=== PATIENT | male | born 1930 | race Caucasian/White ===

== ENCOUNTER 2016-10-14 11:48 | Inpatient (IN) | payer MEDICARE ==
[2016-10-14] MEDS ORDERED: ASPIRIN 325 MG TAB PO STA (13:20)
[2016-10-14] MEDS ORDERED: HEPARIN SODIUM,PORCINE 5,000 UNIT/ML 1 ML VIAL IV ONE (13:32)
[2016-10-14] MEDS ORDERED: HEPARIN SODIUM,PORCINE 5,000 UNIT/ML 1 ML VIAL IV PRN (13:32)
[2016-10-14] MEDS ORDERED: MIDAZOLAM 2 MG/2 ML VIAL ONE (13:43)
[2016-10-14] MEDS ORDERED: LIDOCAINE 2% INJ 20 MG/ML (20 ML MDV) ONE (13:43)
[2016-10-14] MEDS ORDERED: HEPARIN SODIUM,PORCINE/D5W PMX 25,000 UNIT in DEXTROSE/WATER 1 500ML.BAG IV SCH (13:45)
[2016-10-14] MEDS ORDERED: SODIUM CHLORIDE 0.9% 1,000 ML IV ONE ×2 (13:50→15:00)
[2016-10-14] MEDS ORDERED: MIDAZOLAM 2 MG/2 ML VIAL IV ONE (13:50)
[2016-10-14] MEDS ORDERED: SODIUM CHLORIDE 0.9% 500 ML IV ONE (13:50)
[2016-10-14 13:52] LABS: Basophils % (A) 0 %; CH 32.4; CHCM 33.1; Eosinophils # (A) 0.1 k/uL (0-0.7); Eosinophils % (A) 1 %; HCT 40.3 % (39.0-53.0); HDW 2.64; HGB 13.1 gm/dL (13.0-17.5); Luc % (Auto) 1; Lymphocytes # (A) 0.9 k/uL (1.0-4.8); Lymphocytes % (A) 10 %; MCH 31.9 pg (25.0-35.0); MCHC 32.5 g/dL (31.0-37.0); MCV 98.2 fL (80.0-100.0); Mean Platelet Volume 6.9; Monocytes # (A) 0.4 k/uL (0-1.0); Monocytes % (A) 5 %; Neutrophils # (A) 6.8 k/uL (1.3-7.7); Neutrophils % (A) 82 %; RDW 14.1 % (11.5-15.5); WBC 8.3 k/uL (3.8-10.6); WBC (Perox) 8.93
--- NOTE | 2016-10-14 13:53 | ED ---
Back Pain HPI - General Chief Complaint: Back Pain/Injury Stated Complaint: back pain, leg swollen Time Seen by Provider: 10/14/16 12:52 Source: patient, family - History of Present Illness Initial Comments: This patient is an 86-year-old man who presents to be evaluated for pain to the back located between his scapula. The patient states that the pain is been going on since Monday and he thought that it was related to lifting some heavy weights that he felt were too heavy for him. He has had the pain constantly since that time, it is moderate, aching, without worsening or relieving factors. The patient had been seen by his doctor yesterday and reportedly had an EKG that was "normal." The patient states that he was given nitroglycerin to take. Today he noted the addition of some pain and he is indicating the bilateral neck or throat area. The patient was brought back to the [place] side of the emergency department where he started being seen and when an EKG was performed here is brought over to the north side. The patient is denying any additional symptoms. MD Complaint: back pain Onset/Timin -: days(s) Similar Symptoms Previously: No Place: home Radiation: none - Related Data Home Medications Medication Instructions Recorded Confirmed Aspirin [Adult Low Dose Aspirin EC] 81 mg PO DAILY 06/18/16 10/14/16 Metoprolol Tartrate [Lopressor] 25 mg PO DAILY 06/18/16 10/14/16 Simvastatin [Zocor] 10 mg PO DAILY 06/18/16 10/14/16 metFORMIN HCL [Glucophage] 1,000 mg PO DAILY 06/18/16 10/14/16 Enalapril [Vasotec] 5 mg PO DAILY 10/14/16 10/14/16 Fish Oil/Dha/Epa [Fish Oil 1,200 1 cap PO DAILY 10/14/16 10/14/16 mg Fish Oil] Gemfibrozil [Lopid] 600 mg PO DAILY 10/14/16 10/14/16 Isosorbide Mononitrate ER [Imdur] 30 mg PO DAILY 10/14/16 10/14/16 Multivitamin [Men's Multi-Vitamin] 1 tab PO DAILY 10/14/16 10/14/16 Previous Rx's Medication Instructions Recorded Nitroglycerin Sl Tabs [Nitrostat] 0.4 mg SUBLINGUAL Q5M PRN #25 tab 06/19/16 Allergies Allergy/AdvReac Type Severity Reaction Status Date / Time No Known Allergies Allergy Verified 10/14/16 12:21 Review of Systems ROS Statement: Those systems with pertinent positive or pertinent negative responses have been documented in the HPI. ROS Other: All systems not noted in ROS Statement are negative. Constitutional: Denies: fever, chills, weakness Respiratory: Denies: cough, dyspnea Cardiovascular: Reports: as per HPI. Denies: chest pain, palpitations, edema, syncope Gastrointestinal: Denies: abdominal pain, nausea, vomiting Genitourinary: Denies: dysuria, hematuria Musculoskeletal: Reports: back pain Skin: Denies: rash Neurological: Denies: headache, weakness, numbness Past Medical History Past Medical History: Diabetes Mellitus, Hyperlipidemia, Hypertension, Prostate Disorder History of Any Multi-Drug Resistant Organisms: None Reported Past Surgical History: Back Surgery, Coronary Bypass/CABG, Orthopedic Surgery Additional Past Surgical History / Comment(s): CABG 5-6 years ago, carpal tunnel , cataracts removed Past Psychological History: No Psychological Hx Reported Smoking Status: Former smoker Past Alcohol Use History: None Reported Past Drug Use History: None Reported - Past Family History Mother History Unknown: Yes Family Medical History: Hypertension Father History Unknown: Yes Family Medical History: Hypertension General Exam General appearance: alert, in no apparent distress Head exam: Present: atraumatic, normocephalic Eye exam: Present: normal appearance. Absent: scleral icterus, conjunctival injection ENT exam: Present: normal oropharynx Neck exam: Present: normal inspection, full ROM. Absent: tenderness Respiratory exam: Present: normal lung sounds bilaterally. Absent: respiratory distress, wheezes, rales, rhonchi, stridor Cardiovascular Exam: Present: regular rate, normal rhythm, normal heart sounds GI/Abdominal exam: Present: soft. Absent: distended, tenderness, guarding, rebound, mass Extremities exam: Present: normal inspection, normal capillary refill. Absent: pedal edema, calf tenderness Back exam: Present: normal inspection. Absent: CVA tenderness (R), CVA tenderness (L) Neurological exam: Present: alert Skin exam: Present: warm, dry, intact, normal color. Absent: rash Course Vital Signs 10/14/16 10/14/16 10/14/16 12:15 13:35 13:41 Temperature 98 F Pulse Rate 69 68 71 Respiratory 18 18 16 Rate Blood Pressure 94/54 111/62 121/63 O2 Sat by Pulse 96 98 100 Oximetry Medical Decision Making - Medical Decision Making The patient was brought directly to the [place] end of the departments when his EKG was performed. EKG was shown to me in the STEMI was called overhead. I then discussed the case with Dr. Morillo who did come see the patient and the patient was probably taken to the Clinical Molecular Geneticist. - Lab Data Result diagrams: 10/14/16 13:35 Lab Results 10/14/16 Range/Units 13:35 WBC 8.3 (3.8-10.6) k/uL RBC 4.10 L (4.30-5.90) m/uL Hgb 13.1 (13.0-17.5) gm/dL Hct 40.3 (39.0-53.0) % MCV 98.2 (80.0-100.0) fL MCH 31.9 (25.0-35.0) pg MCHC 32.5 (31.0-37.0) g/dL RDW 14.1 (11.5-15.5) % Plt Count 132 L (150-450) k/uL Neutrophils % 82 % Lymphocytes % 10 % Monocytes % 5 % Eosinophils % 1 % Basophils % 0 % Neutrophils # 6.8 (1.3-7.7) k/uL Lymphocytes # 0.9 L (1.0-4.8) k/uL Monocytes # 0.4 (0-1.0) k/uL Eosinophils # 0.1 (0-0.7) k/uL Basophils # 0.0 (0-0.2) k/uL - EKG Data -: EKG Interpreted by Me EKG shows normal: sinus rhythm, ST-T waves (The patient has ST elevations in II , 3 and aVF consistent with acute STEMI. There are reciprocal ST depressions in 1 and aVL.) Rate: normal Critical Care Time Critical Care Time: Yes (30 minutes) Disposition Clinical Impression: STEMI (ST elevation myocardial infarction) Disposition: ADMITTED IP TO THIS [facility] Condition: Critical
[2016-10-14 13:54] LABS: Calcium 9.8 mg/dL (8.4-10.2); Total Bilirubin 0.9 mg/dL (0.2-1.3); Total Protein 6.9 g/dL (6.3-8.2)
[2016-10-14 13:55] LABS: Partial Thromboplastin Time 24.6 sec (22.0-30.0); Prothrombin Time 10.6 sec (9.0-12.0)
[2016-10-14] MEDS ORDERED: LIDOCAINE 2% INJ 20 MG/ML SQ ONE (13:57)
[2016-10-14] MEDS ORDERED: BIVALIRUDIN BOLUS 250 MG/50 ML IV ONE (14:06)
[2016-10-14] MEDS ORDERED: BIVALIRUDIN 250 MG in SODIUM CHLORIDE 0.9% 50 ML IV ONE ×2 (14:07→15:08)
[2016-10-14] MEDS ORDERED: niCARdipine 25 MG/10 ML VIAL ONE (14:15)
[2016-10-14] MEDS ORDERED: SODIUM CHLORIDE 0.9% (PF) 10 ML VIAL ONE (14:15)
[2016-10-14 14:23] LABS: Troponin I 1.74 ng/mL (0.000-0.034)
[2016-10-14] MEDS ORDERED: CLOPIDOGREL 75 MG TAB ONE ×3 (14:28→14:30)
[2016-10-14] MEDS: niCARdipine Syringe (1,000 mcg/10 mL) INTRACORON ONE ×4 (14:28→14:46)
[2016-10-14] MEDS ORDERED: CLOPIDOGREL 75 MG TAB PO ONE (14:34)
[2016-10-14] MEDS ORDERED: ATROPINE SULFATE 0.1 MG/ML 10ML SYRINGE IV ONE ×2 (14:56→15:01)
[2016-10-14] MEDS ORDERED: DOPamine DRIP 800 MG in DEXTROSE/WATER 1 500ML.BAG IV ONE (14:56)
[2016-10-14] MEDS ORDERED: EPINEPHrine 10 ML SYRINGE (0.1 MG/ML) IV ONE (15:01)
[2016-10-14] MEDS ORDERED: NOREPINEPHRINE 16 MG in SODIUM CHLORIDE 0.9% 250 ML IV ONE (15:21)
[2016-10-14] MEDS ORDERED: IOHEXOL 350 MG/ML 100 ML BOTTLE INJ ONE (15:54)
[2016-10-14] MEDS ORDERED: NITROGLYCERIN SL TABS 0.4 MG TAB SUBLINGUAL PRN (15:55)
[2016-10-14] MEDS ORDERED: ZOLPIDEM 5 MG TAB PO PRN (15:55)
[2016-10-14] MEDS ORDERED: MAG HYDROX/AL HYDROX/SIMETH 30 ML CUP PO PRN (15:55)
[2016-10-14] MEDS ORDERED: RX INFO: IV CONTRAST WAS GIVEN 1 EACH MISC MISCELLANE PRN (15:55)
[2016-10-14] MEDS ORDERED: SODIUM CHLORIDE 0.9% 1,000 ML IV SCH (16:00)
[2016-10-14 16:39] LABS: Glucose,Whole Blood 146 mg/dL (75-99)
[2016-10-14] MEDS ORDERED: NOREPINEPHRINE 4 MG in SODIUM CHLORIDE 0.9% 250 ML IV SCH (17:00)
[2016-10-14] MEDS ORDERED: CALCIUM CARBONATE 500 MG CHEWABLE PO PRN (17:42)
[2016-10-14 17:50] LABS: Glucose,Whole Blood 165 mg/dL (75-99)
[2016-10-14] MEDS: INSULIN LISPRO (humaLOG) 300 UNIT/3 ML VIAL SQ SCH (17:53)
[2016-10-14 18:14] LABS: Magnesium 1.8 mg/dL (1.6-2.3); Phosphorous 3.1 mg/dL (2.5-4.5); Potassium 6.1 mmol/L (3.5-5.1)
--- NOTE | 2016-10-14 18:37 | P.CRDCN ---
History of Present Illness Consult date: 10/14/16 History of present illness: This is a pleasant 86-year-old gentleman who does not follow with any demand planner on regular basis with a past medical history significant for chronic artery disease and prior bypass was performed in 2006 where he received ALEX to LAD, SVG to diagonal, and SVG to RCA, hypertension, dyslipidemia, presented to the emergency room complaining of chest discomfort where he was diagnosed with acute inferior ST elevation myocardial infarction. Emergently, the patient underwent heart catheterization which showed acute/subacute total occlusion of the proximal SVG to RCA. He underwent a prolonged procedure in attempting to open the RCA which was unsuccessful in view of the large graft which was full of thrombus. I was able to aspirate red and white clots from the graft but I was unable to restore flow in the graft. The procedure was complicated by brief cardiac arrest where the patient went into asystole which was reversed using epinephrine and also Atropen. He left the cardiac chemistry laboratory technician on a small dose of Levophed. Also I placed a temporary pacemaker during the procedure because of severe bradycardia just before the asystole. I would consider maximize medical treatment using dual antiplatelet therapy and statin. I will obtain an echocardiogram with Doppler. We'll continue monitor the patient in the ICU and try to wean him from the Levophed and watched there is a very closely. Past Medical History Past Medical History: Coronary Artery Disease (CAD), Chest Pain / Angina, Diabetes Mellitus, Hyperlipidemia, Hypertension, Prostate Disorder Additional Past Medical History / Comment(s): 10-14-16 STEMI History of Any Multi-Drug Resistant Organisms: None Reported Past Surgical History: Back Surgery, Coronary Bypass/CABG, Heart Catheterization , Orthopedic Surgery Additional Past Surgical History / Comment(s): 10-14-16 HEART CATH "CLOTS REMOVED AND 3 STENTS TO SVG TO PDA,STILL NO FLOW"2006 CABG -LT INTERNAL MAMMARY ARTERY GRAFT TO LAD, SVG TO DAIG, SVG TO PDA. carpal tunnel, cataracts removed, LASER PROCEDURE FOR ENLARGED PROSTATE, HEART CATH/PTCA 1982 Past Anesthesia/Blood Transfusion Reactions: No Reported Reaction Additional Past Anesthesia/Blood Transfusion Reaction / Comment(s): PT IS JEHOVAH WITNESS-NO BLOOD PRODUCTS Past Psychological History: No Psychological Hx Reported Smoking Status: Former smoker Past Alcohol Use History: Occasional Additional Past Alcohol Use History / Comment(s): STARTED 1951,QUTI 195 SMOKED 1 PPD Past Drug Use History: None Reported - Past Family History Mother History Unknown: Yes Family Medical History: Hypertension Father History Unknown: Yes Family Medical History: Hypertension Medications and Allergies Home Medications Medication Instructions Recorded Confirmed Type Aspirin [Adult Low Dose Aspirin EC] 81 mg PO DAILY 06/18/16 10/14/16 History Metoprolol Tartrate [Lopressor] 25 mg PO DAILY 06/18/16 10/14/16 History Simvastatin [Zocor] 10 mg PO DAILY 06/18/16 10/14/16 History metFORMIN HCL [Glucophage] 500 mg PO DAILY 06/18/16 10/14/16 History Fish Oil/Dha/Epa [Fish Oil 1,200 1 cap PO DAILY 10/14/16 10/14/16 History mg Fish Oil] Isosorbide Mononitrate ER [Imdur] 30 mg PO DAILY 10/14/16 10/14/16 History Losartan Potassium [Cozaar] 50 mg PO DAILY 10/14/16 10/14/16 History Multivitamin [Men's Multi-Vitamin] 1 tab PO DAILY 10/14/16 10/14/16 History Allergies Allergy/AdvReac Type Severity Reaction Status Date / Time No Known Allergies Allergy Verified 10/14/16 12:21 Physical Exam Vitals: Intake and Output 10/14/16 10/14/16 10/14/16 06:59 14:59 22:59 Intake Total 43 522.983 Balance 43 522.983 Intake: IV 43 520 Intake, IV Titration 2.983 Amount Norepinephrine 4 mg In 2.983 Sodium Chloride 0.9% 250 ml @ Titrate IV .Q0M [facility] Rx#:[id number] - Constitutional General appearance: no acute distress - Respiratory Respiratory: bilateral: diminished - Cardiovascular Rhythm: regular Heart sounds: normal: S1 Abnormal Heart Sounds: systolic murmur Results 10/14/16 13:35 10/14/16 17:45 Comprehensive Metabolic Panel 10/14/16 Range/Units 17:45 Sodium 137 (137-145) mmol/L Potassium 6.1 H (3.5-5.1) mmol/L Chloride 105 (98-107) mmol/L Carbon Dioxide 22 (22-30) mmol/L BUN 26 H (9-20) mg/dL Creatinine 1.56 H (0.66-1.25) mg/dL Glucose 170 H (74-99) mg/dL Calcium 9.0 (8.4-10.2) mg/dL Current Medications Generic Name Dose Route Start Last Admin Trade Name Frekeenan PRN Reason Stop Dose Admin Al Hydroxide/Mg Hydroxide 30 ml 10/14/16 15:55 Maalox PO Q4HR PRN Heartburn Aspirin 81 mg 10/15/16 09:00 Aspirin PO DAILY [facility] Atorvastatin Calcium 10 mg 10/15/16 09:00 Lipitor PO DAILY [facility] Calcium Carbonate/Glycine 1,000 mg 10/14/16 17:42 Tums PO QID PRN Heartburn Clopidogrel Bisulfate 75 mg 10/15/16 09:00 Plavix PO DAILY [facility] Famotidine 20 mg 10/14/16 21:00 Pepcid PO BID [facility] Sodium Chloride 1,000 mls @ 100 mls/hr 10/14/16 16:00 10/14/16 17:15 Saline 0.9% IV 10/14/16 22:01 100 mls/hr .Q10H [facility] Administration Norepinephrine Bitartrate 4 mg 254 mls @ 0 mls/hr 10/14/16 17:00 10/14/16 17: 57 / Sodium Chloride IV 0.5 mcg/min .Q0M [facility] 1.9 mls/hr Protocol Titration Titrate Insulin Human Lispro 0 unit 10/14/16 21:00 10/14/16 17:53 Humalog SQ 1 unit ACHS [facility] Administration Protocol Miscellaneous Information 1 each 10/14/16 15:55 Rx Info: Iv Contrast Was Given MISCELLANE 10/16/16 15:55 DAILY PRN Per Protocol Multivitamins 1 each 10/15/16 12:00 Theragran PO DAILY@1200 [facility] Nitroglycerin 0.4 mg 10/14/16 15:55 Nitrostat SUBLINGUAL Q5M PRN Chest Pain Zolpidem Tartrate 5 mg 10/14/16 15:55 Ambien PO HS PRN Insomnia Intake and Output 10/14/16 10/14/16 10/14/16 06:59 14:59 22:59 Intake Total 43 522.983 Balance 43 522.983 Intake: IV 43 520 Intake, IV Titration 2.983 Amount Norepinephrine 4 mg In 2.983 Sodium Chloride 0.9% 250 ml @ Titrate IV .Q0M [facility] Rx#:[id number] 10/14/16 17:45 Assessment and Plan Plan: Assessment #[address] elevation myocardial infarction #2 known CAD with a prior CABG as described above #3 dyslipidemia #4 chronic kidney disease Plan #1 the patient attempted PCI of the SVG to RCA which was unsuccessful #2 I would consider maximize medical treatment using dual antiplatelet therapy and a statin #3 obtain an echocardiogram was Doppler to assess the LV function #4 follow-up with the patient
[2016-10-14] MEDS ORDERED: Magnesium Replacement Protocol 1 EACH MISC MISCELLANE PRN (19:16)
[2016-10-14] MEDS ORDERED: SODIUM POLYSTYRENE SULFONATE 15 GM/60 ML BOTTLE PO ONE (19:18)
--- NOTE | 2016-10-14 20:37 | CC ---
DATE OF SERVICE: October 14, 2016 PERFORMING PHYSICIAN: Derrick Garcia M.D. personal financial planner. PROCEDURE PERFORMED: 1. Selective left and right coronary angiogram. 2. SVG angiogram x2. 3. Left intramammary artery angiogram. 4. Attempted PCI of the SVG to RCA. 5. Intracoronary injections of nitroglycerin and nicardipine. 6. Successful placement of transvenous temporary pacemaker. INDICATION: This is a pleasant 86-year-old gentleman who presented to the hospital with acute inferior ST elevation myocardial infarction and the decision was made toward emergent heart catheterization. Approach: Right common femoral artery. COMPLICATIONS: Brief cardiac arrest with severe bradycardia and asystole. PROCEDURE DESCRIPTION: The patient was brought emergently to the cardiac chemical laboratory assistant. The right common femoral artery was cannulated using micropuncture technique and micropuncture wire passed easily. Then I placed a 6 [place]ian sheath in the right common femoral artery. Subsequently I did selective right and left coronary angiogram using JL4 catheters and JR4 catheters. After that, I did SVG angiogram using JR4 catheters. The SVG to RCA and the SVG to diagonal were performed using JR4 catheters. ALEX to LAD was performed using also JR4 catheter. Then I attempted doing PCI of the SVG to RCA. Please see separate paragraph for that. Besides that, I placed a temporary pacemaker. Please see separate paragraph for that. SELECTIVE CORONARY ANGIOGRAM: 1. The left main is a large-caliber vessel with severe disease in the midportion appeared to be in the range of 50 to 60%. The left main bifurcates into the left circumflex and left anterior descending artery. 2. The left circumflex is a large-caliber vessel and nondominant vessel. The proximal left circumflex appeared to have severe lesion in the range of 90%. This is by the bifurcation of the first OM branch, which is a large-caliber vessel, seems to have severe disease in the proximal portion appeared to be in the range of 70% to 80%. The mid left circumflex appeared to be angiographically normal. 3. Left anterior descending artery seems to be 100% occluded by the ostium. 4. The right coronary artery is a large-caliber vessel and it is a dominant vessel. The right coronary artery is 100% occluded distally. SELECTIVE BYPASS ANGIOGRAM: 1. The SVG to RCA is 100% occluded in the proximal portion. 2. The SVG to diagonal appeared to have severe lesion in the proximal portion in the range of 70% to 80% and intermediate lesion in the midportion appeared to be in the range of 60%. 3. The ALEX to LAD is patent. PCI of the SVG to RCA: Anticoagulation was initiated using Angiomax. Subsequently, I took multipurpose guiding catheter, and the SVG to RCA was engaged. At that point, I was able to wire the SVG to RCA using a run-through wire. I did multiple aspiration thrombectomy using an export catheter and I was able to extract white and red cross from that graft. In spite of that, I was able to restore flow. I decided to stent the proximal portion at that point, so I took 3.0 x 18 mm Xience ANATOLY, where the stent was positioned under fluoroscopy guidance in the proximal portion and deployed under its nominal pressure. In spite of that, I was able to restore flow. At that point, I decided to stent the midportion wire took 4.0 x 38 mm and another Xience ANATOLY, where the stent was positioned under fluoroscopy guidance and it was deployed under its nominal pressure. The following angiogram showed some haziness between the first and second stent. So I decided to cover that using another stent which was 3.5 x 15 mm stent which was again was positioned under fluoroscopy guidance and deployed under its nominal pressure. In spite of the three stents, I was unable to restore flow in that vein graft, so at that point, I decided to do another runoff aspiration thrombectomy catheter. I did that and I was unable to extract any clots from the vein grafts. At that point, the patient went bradycardic with heart rate in the 30s and then he went into asystole which was reversed using epinephrine and Atropine. At that point, I decided to place transvenous pacemaker, so the right common femoral vein was cannulated using micropuncture 18-gauge Cook catheter. The wire passed easily, then I placed an 8 Bel[place]ian sheath in the right common femoral vein. Subsequently, I was able to advance transvenous pacer under fluoroscopy guidance, where the pacer was positioned in the right ventricle again under fluoroscopy guidance. I reengaged the SVG graft again using multipurpose catheter and then I advanced the same run-through to the graft and attempted doing aspiration thrombectomy using initially a larger aspiration catheter but the catheter did not cross the proximal portion of the graft. At that point, I decided to stop. CONCLUSION: 1. Acute inferior ST elevation myocardial infarction. 2. Known coronary artery disease with a prior bypass with SVG to RCA, SVG to diagonal and left internal mammary artery to left anterior descending. 3. Acute/subacute total occlusion of the SVG to RCA. 4. Attempted PCI of the SVG to RCA was done and was unsuccessful. 5. Successful placement of transvenous pacemaker. POSTPROCEDURE MANAGEMENT: 1. Maximize medical treatment. 2. Follow up with the patient.
[2016-10-14] MEDS: MAGNESIUM SULFATE-D5W PMX 1 GM in DEXTROSE/WATER 1 100ML.BAG IVPB SCH ×2 (21:55→23:52)
[2016-10-14] MEDS: FAMOTIDINE 20 MG TAB PO SCH (21:56)
[2016-10-14] MEDS: DEXTROSE 5% IN WATER 1,000 ML IV SCH (21:58)
[2016-10-15 03:43] LABS: Basophils % (A) 0 %; CH 32.1; CHCM 33.4; Eosinophils % (A) 0 %; HDW 2.65; HGB 11.6 gm/dL (13.0-17.5); Luc # (Auto) 0.06; Luc % (Auto) 1; Lymphocytes # (A) 0.8 k/uL (1.0-4.8); Lymphocytes % (A) 10 %; MCHC 33.1 g/dL (31.0-37.0); MCV 96.6 fL (80.0-100.0); Monocytes # (A) 0.5 k/uL (0-1.0); Monocytes % (A) 6 %; Neutrophils # (A) 6.1 k/uL (1.3-7.7); Neutrophils % (A) 82 %; RBC 3.62 m/uL (4.30-5.90); RDW 14.2 % (11.5-15.5); WBC 7.5 k/uL (3.8-10.6); WBC (Perox) 8.06
[2016-10-15 04:11] LABS: Magnesium 2.5 mg/dL (1.6-2.3); Phosphorous 3.8 mg/dL (2.5-4.5); Potassium 4.7 mmol/L (3.5-5.1)
[2016-10-15] MEDS: DEXTROSE 5% IN WATER 1,000 ML IV SCH (06:20)
[2016-10-15 07:41] LABS: Glucose,Whole Blood 165 mg/dL (75-99)
[2016-10-15] MEDS: INSULIN LISPRO (humaLOG) 300 UNIT/3 ML VIAL SQ SCH ×4 (08:19→21:00)
[2016-10-15] MEDS: ASPIRIN 81 MG CHEW PO SCH (08:29)
[2016-10-15] MEDS: ATORVASTATIN 10 MG TAB PO SCH (08:29)
[2016-10-15] MEDS: CLOPIDOGREL 75 MG TAB PO SCH (08:29)
[2016-10-15] MEDS: FAMOTIDINE 20 MG TAB PO SCH ×2 (08:29→21:00)
--- NOTE | 2016-10-15 08:40 | HP ---
DATE OF ADMISSION: CHIEF COMPLAINT: Re-evaluation. HISTORY OF PRESENT ILLNESS: This is an 86-year-old gentleman who was admitted to the hospital after being referred to the emergency room with complaint of interscapular pain and chest pain. The patient was noted to be having an acute VA and was thus taken to cardiac laborer driver. The patient had some chest pain yesterday and I had seen him in the office. He had a brief pain, which had resolved with aspirin. The pain was interscapular at the time. The patient had no associated shortness of breath, etc. The patient when I saw had had no pain for more than about 20 hours. The patient's EKG did not reveal any acute changes. He has had a previous CABG. The patient was placed on nitrates and recommended for cardiac evaluation. The patient today had called saying that he had discomfort again and that his leg was swollen. The patient was referred to the emergency room. Past medical history is significant for coronary artery disease, status post CABG in 2006. He had 3-way bypass graft. He has had a history of diabetes mellitus, peripheral arterial disease, hyperlipidemia on medical therapy. No history of any lung disease, liver disease, kidney disease. No history of any ulcers, TB, hepatitis. No history of any rheumatic fever, myocardial infarction, CVA. PAST SURGICAL HISTORY: Significant for CABG. PERSONAL HISTORY: Nonsmoker. No alcohol. No known drug allergies. Medications include: 1. Metoprolol 25 mg daily. 2. Losartan 50 mg daily. 3. Metformin 500 mg daily. 4. Simvastatin 10 mg daily. 5. Aspirin 81 mg daily. 6. Imdur 30 mg daily. 7. Multivitamin daily. SOCIAL HISTORY: Patient is , lives alone. FAMILY MEDICAL HISTORY: Patient had 3 daughters, one , she had suicide. Two others adequate health; one of them having had a history of melanoma. The patient has a son who has history of recurrent pancreatitis. REVIEW OF SYSTEMS: NEURO: Denies any headaches, dizziness. PSYCH: No anxiety, depression. CARDIAC: Present symptoms of interscapular pain. No shortness of breath, cough, PND. GI: Some heartburn. No diarrhea, constipation, hematochezia. : No symptoms of dysuria, hematuria. Does have history of CKD. EXTREMITIES: No pain. CONSTITUTIONAL: No fever or chills. SKIN: No rashes. PHYSICAL EXAMINATION: Pleasant gentleman in no distress. Vital signs reveal the patient is afebrile, pulse 71, respirations 16, blood pressure 121/63, pulse ox 100% on 2 L. HEENT: Normocephalic. NECK: No JVD, carotid bruits. CHEST: Clear to auscultation. CARDIAC: Normal S1, S2 with no gallops. Systolic murmur 2/6 left sternal border. ABDOMEN: Soft. Bowel sounds present. Extremities reveal no edema. Good pulses upper extremities and left lower left foot. Right foot pedal pulses not palpable. The patient has a pacemaker line in right groin. NEUROLOGICALLY: Awake, alert, oriented. Well coordinated movements of extremities. LABORATORY ASSESSMENT: CBC is normal.INR normal. Potassium was 6.0, BUN 28, creatinine 1.78. CPK 178. Troponin 1.74. ASSESSMENT: 1. Acute myocardial infarction, inferoposterior. 2. Known coronary artery disease. 3. Diabetes mellitus. 4. Chronic kidney disease 3. 5. Hypertension, controlled. 6. Hyperlipidemia, on medical therapy. PLAN: Patient at present is stable. Continue present medical regimen. The patient had a temporary pacemaker placed because he was bradycardiac. The patient had a cardiac catheterization done; however, the patient has a graft which could not be opened. Patient's condition discussed with the patient and family. Prognosis remains guarded. Continue present management as outlined.
[2016-10-15] MEDS ORDERED: NON-FORMULARY DRUG (Fish Oil/Dha/Epa [Fish Oil 1,200 Mg Fish Oil] 1 CAP) PO SCH (09:00)
[2016-10-15] MEDS: SODIUM CHLORIDE 0.9% 1,000 ML IV SCH ×2 (10:12→19:45)
[2016-10-15] MEDS ORDERED: DEXAMETHASONE SOD PHOSPHATE 4 MG/ML 1 ML VIAL IV STA (10:31)
--- NOTE | 2016-10-15 11:00 | P.PN ---
Subjective Principal diagnosis: Acute myocardial infarction History present illness: This 86-year-old gentleman was admitted to the hospital with an ST elevated myocardial infarction involving the inferior wall. Cardiac cath was done with noted total occlusion of one of the previous SVG grafts and it could not be opened up. Patient also had bradycardia and a temporary pacemaker was placed. Patient is doing well this morning with no chest pain, no shortness of breath. Occasional pacemaker capture especially after a PVC. Patient has no other symptoms. His right leg feels okay. REVIEW OF SYSTEMS: Neuro: Denies any headaches dizziness. Psych: Denies anxiety depression feels oriented. Cardiac: Denies chest pain and angina palpitations. Respiratory: Denies shortness of breath cough. GI: Decreased appetite denies any nausea or heartburn today no bowel movement : Denies dysuria hematuria. Extremities: Denies pain. No edema. Skin: Intact. Constitutional: No fever, chills. Objective - Vital Signs Vital signs: Vital Signs Temp 97.8 F 10/15/16 08:00 Pulse 68 10/15/16 10:00 Resp 23 10/15/16 10:00 BP 99/53 10/15/16 05:00 Pulse Ox 99 10/15/16 10:00 Intake & Output 10/14/16 10/15/16 10/15/16 18:59 06:59 18:59 Intake Total 375.199 2712.28 400 Output Total 820 170 Balance 765.983 942.28 230 Weight 73.4 kg Intake: IV 763 1200 400 Dextrose 5% in Water 1, 1000 400 000 ml @ 100 mls/hr IV . Q10H [facility] Rx#:[id number] Sodium Chloride 0.9% 1, 200 200 000 ml @ 100 mls/hr IV . Q10H [facility] Rx#:[id number] Intake, IV Titration 2.983 202.28 Amount Magnesium Sulfate-D5w Pmx 200 1 gm In Dextrose/Water 1 100ml.bag @ 100 mls/hr IVPB Q1H [facility] Rx#: [id number] Norepinephrine 4 mg In 2.983 2.28 Sodium Chloride 0.9% 250 ml @ Titrate IV .Q0M [facility] Rx#:[id number] Oral 360 Output: Urine 820 170 Other: Voiding Method Urinal Urinal ABP, PAP, CO, CI - Last Documented Arterial Blood Pressure 104/47 PHYSICAL EXAMINATION: Cooperative, at present in no acute distress. HEENT: Neck supple. No JVD. Chest: Clear to auscultation Cardiac: Normal S1-S2 no gallops systolic murmur 2/6 left sternal border. Abdomen: Soft bowel sounds present. Extremities: No edema no tenderness, palpable pedal pulses his left lesser than right Neurologically: Awake, alert, oriented with well-coordinated movements upper extremities. - Labs CBC & Chem 7: 10/15/16 03:30 10/15/16 03:30 Labs: Abnormal Lab Results - Last 24 Hours (Table) 10/14/16 10/14/16 10/14/16 Range/Units 16:36 17:45 17:48 RBC (4.30-5.90) m/uL Hgb (13.0-17.5) gm/dL Hct (39.0-53.0) % Plt Count (150-450) k/uL Lymphocytes # (1.0-4.8) k/uL Potassium 6.1 H (3.5-5.1) mmol/L BUN 26 H (9-20) mg/dL Creatinine 1.56 H (0.66-1.25) mg/dL Glucose 170 H (74-99) mg/dL POC Glucose (mg/dL) 146 H 165 H (75-99) mg/dL Magnesium (1.6-2.3) mg/dL Troponin I (0.000-0.034) ng/mL 10/15/16 10/15/16 10/15/16 Range/Units 03:30 03:30 03:30 RBC 3.62 L (4.30-5.90) m/uL Hgb 11.6 L (13.0-17.5) gm/dL Hct 35.0 L (39.0-53.0) % Plt Count 107 L (150-450) k/uL Lymphocytes # 0.8 L (1.0-4.8) k/uL Potassium (3.5-5.1) mmol/L BUN 25 H (9-20) mg/dL Creatinine 1.45 H (0.66-1.25) mg/dL Glucose 178 H (74-99) mg/dL POC Glucose (mg/dL) (75-99) mg/dL Magnesium 2.5 H (1.6-2.3) mg/dL Troponin I 99.300 H* (0.000-0.034) ng/mL 10/15/16 Range/Units 07:40 RBC (4.30-5.90) m/uL Hgb (13.0-17.5) gm/dL Hct (39.0-53.0) % Plt Count (150-450) k/uL Lymphocytes # (1.0-4.8) k/uL Potassium (3.5-5.1) mmol/L BUN (9-20) mg/dL Creatinine (0.66-1.25) mg/dL Glucose (74-99) mg/dL POC Glucose (mg/dL) 165 H (75-99) mg/dL Magnesium (1.6-2.3) mg/dL Troponin I (0.000-0.034) ng/mL Assessment and Plan Plan: ASSESSMENT: 1. Acute inferior wall myocardial infarction with ST elevation. 2. Known coronary artery disease with previous CABG. 3. Hypertension. 4. Chronic kidney disease stage III. 5. Diabetes mellitus with peripheral arterial disease. 6. Hyperkalemia resolved. PLAN: Continue present medical management including hydration and medications as ordered. Pacemaker discontinuation to be evaluated by the electrical and instrument technician..
[2016-10-15 11:07] LABS: Hemoglobin A1C 6.6 % (4.2-6.1)
[2016-10-15 11:08] LABS: Glucose,Whole Blood 164 mg/dL (75-99)
[2016-10-15 12:01] LABS: Glucose,Whole Blood 165 mg/dL (75-99)
[2016-10-15] MEDS: MULTIVITAMINS, THERA 1 EACH TAB PO SCH (12:13)
--- NOTE | 2016-10-15 12:24 | P.PN ---
Subjective Principal diagnosis: Acute coronary syndrome This is a pleasant 86-year-old gentleman with a known CAD and prior CABG, hypertension, dyslipidemia, presented to the hospital was a chest discomfort and was diagnosed with acute inferior ST elevation myocardial infarction. He underwent an emergent heart catheterization and was found to have an acute/ subacute total occlusion of the SVG to RCA. An attempt to open the SVG to RCA was done and was unsuccessful in review of the large thrombus burden. During the procedure the patient developed cardiac arrest with severity bradycardia and asystole. Transvenous temporary pacemaker was placed. On follow-up with the patient today, he is asymptomatic and denies having any chest pain or shortness of breath. The temporary pacemaker still there and the patient has not been using it. He continues to be in a sinus rhythm. He continues to be hemodynamically stable. I would continue the current medical treatment was dual antiplatelet therapy. Continue holding any blood pressure medication at this point. Continue monitor the heart rhythm Objective - Vital Signs Vital signs: Vital Signs Temp 98.0 F 10/15/16 12:00 Pulse 70 10/15/16 12:00 Resp 20 10/15/16 12:00 BP 99/53 10/15/16 05:00 Pulse Ox 95 10/15/16 12:00 Intake & Output 10/14/16 10/15/16 10/15/16 18:59 06:59 18:59 Intake Total 451.089 4026.28 600 Output Total 820 170 Balance 765.983 942.28 430 Weight 73.4 kg Intake: IV 763 1200 600 Dextrose 5% in Water 1, 1000 400 000 ml @ 100 mls/hr IV . Q10H [facility] Rx#:[id number] Sodium Chloride 0.9% 1, 200 200 000 ml @ 100 mls/hr IV . Q10H [facility] Rx#:[id number] Sodium Chloride 0.9% 1, 200 000 ml @ 100 mls/hr IV . Q10H [facility] Rx#:[id number] Intake, IV Titration 2.983 202.28 Amount Magnesium Sulfate-D5w Pmx 200 1 gm In Dextrose/Water 1 100ml.bag @ 100 mls/hr IVPB Q1H [facility] Rx#: [id number] Norepinephrine 4 mg In 2.983 2.28 Sodium Chloride 0.9% 250 ml @ Titrate IV .Q0M [facility] Rx#:[id number] Oral 360 Output: Urine 820 170 Other: Voiding Method Urinal Urinal ABP, PAP, CO, CI - Last Documented Arterial Blood Pressure 124/55 - Constitutional General appearance: Present: no acute distress - Respiratory Respiratory: bilateral: CTA - Cardiovascular Rhythm: regular Heart sounds: normal: S1, S2 - Labs CBC & Chem 7: 10/15/16 03:30 10/15/16 03:30 Labs: Abnormal Lab Results - Last 24 Hours (Table) 10/14/16 10/14/16 10/14/16 Range/Units 16:36 17:45 17:48 RBC (4.30-5.90) m/uL Hgb (13.0-17.5) gm/dL Hct (39.0-53.0) % Plt Count (150-450) k/uL Lymphocytes # (1.0-4.8) k/uL Potassium 6.1 H (3.5-5.1) mmol/L BUN 26 H (9-20) mg/dL Creatinine 1.56 H (0.66-1.25) mg/dL Glucose 170 H (74-99) mg/dL POC Glucose (mg/dL) 146 H 165 H (75-99) mg/dL Hemoglobin A1c (4.2-6.1) % Magnesium (1.6-2.3) mg/dL Troponin I (0.000-0.034) ng/mL 10/15/16 10/15/16 10/15/16 Range/Units 03:30 03:30 03:30 RBC 3.62 L (4.30-5.90) m/uL Hgb 11.6 L (13.0-17.5) gm/dL Hct 35.0 L (39.0-53.0) % Plt Count 107 L (150-450) k/uL Lymphocytes # 0.8 L (1.0-4.8) k/uL Potassium (3.5-5.1) mmol/L BUN 25 H (9-20) mg/dL Creatinine 1.45 H (0.66-1.25) mg/dL Glucose 178 H (74-99) mg/dL POC Glucose (mg/dL) (75-99) mg/dL Hemoglobin A1c 6.6 H (4.2-6.1) % Magnesium 2.5 H (1.6-2.3) mg/dL Troponin I (0.000-0.034) ng/mL 10/15/16 10/15/16 10/15/16 Range/Units 03:30 07:40 11:02 RBC (4.30-5.90) m/uL Hgb (13.0-17.5) gm/dL Hct (39.0-53.0) % Plt Count (150-450) k/uL Lymphocytes # (1.0-4.8) k/uL Potassium (3.5-5.1) mmol/L BUN (9-20) mg/dL Creatinine (0.66-1.25) mg/dL Glucose (74-99) mg/dL POC Glucose (mg/dL) 165 H 164 H (75-99) mg/dL Hemoglobin A1c (4.2-6.1) % Magnesium (1.6-2.3) mg/dL Troponin I 99.300 H* (0.000-0.034) ng/mL 10/15/16 Range/Units 12:00 RBC (4.30-5.90) m/uL Hgb (13.0-17.5) gm/dL Hct (39.0-53.0) % Plt Count (150-450) k/uL Lymphocytes # (1.0-4.8) k/uL Potassium (3.5-5.1) mmol/L BUN (9-20) mg/dL Creatinine (0.66-1.25) mg/dL Glucose (74-99) mg/dL POC Glucose (mg/dL) 165 H (75-99) mg/dL Hemoglobin A1c (4.2-6.1) % Magnesium (1.6-2.3) mg/dL Troponin I (0.000-0.034) ng/mL Assessment and Plan Plan: Assessment #[address] elevation myocardial infarction #2 known CAD with a prior CABG as described above #3 dyslipidemia #4 chronic kidney disease Plan #1 the patient attempted PCI of the SVG to RCA which was unsuccessful #2 continue the current medical treatment using dual antiplatelet therapy and a statin #3 follow-up on the echocardiogram #4 follow-up with the patient
--- NOTE | 2016-10-15 12:26 | ECHOF ---
Referral Reason:stemi MEASUREMENTS -------- HEIGHT: 175.3 cm WEIGHT: 73.0 kg BP: 118/57 IVSd: 1.2 cm (0.6 - 1.1) LVIDd: 3.7 cm (3.9 - 5.3) LVPWd: 1.0 cm (0.6 - 1.1) IVSs: 1.5 cm LVIDs: 3.0 cm LVPWs: 1.1 cm Ao Diam: 3.3 cm (2.0 - 3.7) AV Cusp: 0.9 cm (1.5 - 2.6) LA Diam: 3.6 cm (2.7 - 3.8) MV EXCURSION: 12.495 mm (> 18.000) MV EF SLOPE: 49 mm/s (70 - 150) EPSS: 1.0 cm MV E Natan: 0.82 m/s MV DecT: 259 ms MV A Natan: 0.67 m/s MV E/A Ratio: 1.22 AV maxP.66 mmHg AV meanP.13 mmHg AR PHT: 479 ms RAP: 5.00 mmHg RVSP: 30.37 mmHg FINDINGS -------- Sinus rhythm. This was a technically good study. There is borderline concentric left ventricular hypertrophy. Overall left ventricular systolic function is mild-moderately impaired with, an EF between 40 - 45 %. Basal inferolateral hypokinesis. The right ventricle is normal in size and function. The left atrium is normal in size. The right atrium is normal in size. There is mild aortic regurgitation. There is moderate aortic stenosis present. Peak/mean gradient across the Aortic Valve is 35.66mmHg / 17.13mmHg. Mild mitral regurgitation is present. There is mild mitral valve prolapse , predominately a posteriorly directed jet. Mild tricuspid regurgitation present. The right ventricular systolic pressure, as measured by Doppler, is 30.37mmHg. Pulmonic valve appears structurally normal. The aortic root size is normal. The pericardium is normal. CONCLUSIONS -------- 1. Sinus rhythm. 2. There is moderate aortic stenosis present. 3. Peak/mean gradient across the Aortic Valve is 35.66mmHg / 17.13mmHg. 4. Mild mitral regurgitation is present. 5. There is mild mitral valve prolapse. 6. , predominately a posteriorly directed jet. 7. Mild tricuspid regurgitation present. 8. The right ventricular systolic pressure, as measured by Doppler, is 30.37mmHg. 9. Pulmonic valve appears structurally normal. 10. The aortic root size is normal. 11. The pericardium is normal. 12. This was a technically good study. 13. There is borderline concentric left ventricular hypertrophy. 14. Overall left ventricular systolic function is mild-moderately impaired with, an EF between 40 - 45 %. 15. Basal inferolateral hypokinesis. 16. The right ventricle is normal in size and function. 17. The left atrium is normal in size. 18. The right atrium is normal in size. 19. There is mild aortic regurgitation. CLOTHING CUTTER: Vi Leslie RDCS
[2016-10-15] MEDS ORDERED: traMADol 50 MG TAB PO SCH (13:00)
[2016-10-15 18:35] LABS: Glucose,Whole Blood 189 mg/dL (75-99)
[2016-10-15 20:20] LABS: Glucose,Whole Blood 162 mg/dL (75-99)
[2016-10-15] MEDS ORDERED: TEMAZEPAM 7.5 MG CAP PO PRN (21:51)
[2016-10-16] MEDS: LORazepam 2 MG/ML SYRINGE IV PRN ×2 (00:25→06:15)
[2016-10-16 04:27] LABS: Basophils % (A) 0 %; CH 32.5; CHCM 33.4; Eosinophils % (A) 0 %; HCT 35.3 % (39.0-53.0); HDW 2.51; HGB 11.7 gm/dL (13.0-17.5); Luc # (Auto) 0.11; Luc % (Auto) 1; Lymphocytes # (A) 0.7 k/uL (1.0-4.8); Lymphocytes % (A) 8 %; MCH 32.3 pg (25.0-35.0); MCV 97.8 fL (80.0-100.0); Mean Platelet Volume 7.8; Monocytes # (A) 0.5 k/uL (0-1.0); Monocytes % (A) 5 %; Neutrophils # (A) 7.8 k/uL (1.3-7.7); Neutrophils % (A) 86 %; RBC 3.61 m/uL (4.30-5.90); RDW 13.8 % (11.5-15.5); WBC 9.1 k/uL (3.8-10.6); WBC (Perox) 9.57
[2016-10-16 04:31] LABS: Anion Gap 7 mmol/L; Blood Urea Nitrogen 21 mg/dL (9-20); Calcium 8.7 mg/dL (8.4-10.2); Carbon Dioxide 25 mmol/L (22-30); Chloride 108 mmol/L (98-107); Glucose 126 mg/dL (74-99); Non-African American GFR(MDRD) 52 (>60 ml/min/1.73 sqM); Phosphorous 3.1 mg/dL (2.5-4.5); Potassium 4.5 mmol/L (3.5-5.1); Sodium 140 mmol/L (137-145)
[2016-10-16] MEDS: SODIUM CHLORIDE 0.9% 1,000 ML IV SCH ×2 (07:00→16:56)
[2016-10-16 07:33] LABS: Glucose,Whole Blood 112 mg/dL (75-99)
[2016-10-16] MEDS: INSULIN LISPRO (humaLOG) 300 UNIT/3 ML VIAL SQ SCH ×4 (07:57→20:51)
[2016-10-16] MEDS: CLOPIDOGREL 75 MG TAB PO SCH (09:25)
[2016-10-16] MEDS: ASPIRIN 81 MG CHEW PO SCH (09:25)
[2016-10-16] MEDS: ATORVASTATIN 10 MG TAB PO SCH (09:25)
[2016-10-16] MEDS: FAMOTIDINE 20 MG TAB PO SCH ×2 (09:25→20:51)
[2016-10-16] MEDS ORDERED: HALOPERIDOL 0.5 MG TAB PO STA (11:14)
[2016-10-16 11:47] LABS: Appearance,Urine Clear (Clear); Bilirubin,Urine Negative (Negative); Calcium Oxalate Crystals,Urine Rare /hpf; Glucose,Urine (UA) Negative (Negative); Ketones,Urine Negative (Negative); Leukocyte Esterase,Urine Small (Negative); Mucus,Urine Rare /hpf; Nitrite,Urine Negative (Negative); Particle Count 1300; Protein,Urine Trace (Negative); RBC,Urine 90 /hpf (0-5); UA Billing (MACRO vs. MICRO) MICRO; Urobilinogen,Urine <2.0 mg/dL (<2.0); WBC,Urine 14 /hpf (0-5)
--- NOTE | 2016-10-16 11:52 | P.PN ---
Subjective Principal diagnosis: Acute myocardial infarction History present illness: This 86-year-old gentleman was admitted to the hospital for chest pain and acute myocardial infarction. The patient pain was mostly interscapular. EKG revealed ST elevation infarct in the inferior wall. The patient did undergo cardiac cath but the SVG could not be opened. Patient treated medically. He also had a temporary pacemaker placed. Since last night the patient has become more delirious and is somewhat confused thrashes around talks. He does respond to simple commands and has equal strength bilaterally. His plantars are downgoing. The patient has no evidence of any focal deficit. He did receive Ativan and possibly might have received Restoril. Review of system: Unable to obtain much from the patient. Per nursing no reported fever or chills. Good urine output, stable vital signs , not been using his temper a pacemaker. Patient hasn't eaten this morning. No reported diarrhea or any bleeding any site. Objective - Vital Signs Vital signs: Vital Signs Temp 98.1 F 10/16/16 08:00 Pulse 77 10/16/16 10:00 Resp 13 10/16/16 10:00 BP 118/70 10/16/16 06:00 Pulse Ox 89 L 10/16/16 10:00 Intake & Output 10/15/16 10/16/16 10/16/16 18:59 06:59 18:59 Intake Total 1300 1200 500 Output Total 342 775 420 Balance 958 425 80 Weight 73.4 kg 74.6 kg Intake: IV 1200 1200 500 Dextrose 5% in Water 1, 400 000 ml @ 100 mls/hr IV . Q10H [facility] Rx#:[id number] Sodium Chloride 0.9% 1, 800 1200 500 000 ml @ 100 mls/hr IV . Q10H [facility] Rx#:[id number] Intake, IV Titration 100 Amount Sodium Chloride 0.9% 1, 100 000 ml @ 100 mls/hr IV . Q10H [facility] Rx#:[id number] Output: Urine 340 775 420 Stool 2 Other: Voiding Method Urinal Indwelling Catheter Indwelling Catheter # Voids 1 1 # Bowel Movements 1 ABP, PAP, CO, CI - Last Documented Arterial Blood Pressure 128/60 Physical examination: Vital signs as recorded. There is stable. Abdomen HEENT: Normocephalic, neck decreased range of motion with no pain. No JVD or carotid bruits chest. Chest: Clear to auscultation Cardiac: Normal S1 and S2 with no gallops systolic murmur 2 / 6 left sternal border Abdomen: Soft bowel sounds active Extremities: No edema. Patient has no drainage at the site of the catheter for temperature pacemaker. The patient has a weak pulse in the right leg. Adequate pulse and left leg. Neurologically: Awake alert and restless. Patient appears delirious, conversation at times is inappropriate. Speech is clear. Facial movements are symmetrical bilateral. Patient has very strong equal hand grasps. He moves his legs and arms freely. Plantars are downgoing. - Labs CBC & Chem 7: 10/16/16 04:10 10/16/16 04:10 Labs: Abnormal Lab Results - Last 24 Hours (Table) 10/15/16 10/15/16 10/15/16 Range/Units 12:00 18:32 20:18 RBC (4.30-5.90) m/uL Hgb (13.0-17.5) gm/dL Hct (39.0-53.0) % Plt Count (150-450) k/uL Neutrophils # (1.3-7.7) k/uL Lymphocytes # (1.0-4.8) k/uL Chloride (98-107) mmol/L BUN (9-20) mg/dL Creatinine (0.66-1.25) mg/dL Glucose (74-99) mg/dL POC Glucose (mg/dL) 165 H 189 H 162 H (75-99) mg/dL 10/16/16 10/16/16 10/16/16 Range/Units 04:10 04:10 07:29 RBC 3.61 L (4.30-5.90) m/uL Hgb 11.7 L (13.0-17.5) gm/dL Hct 35.3 L (39.0-53.0) % Plt Count 100 L (150-450) k/uL Neutrophils # 7.8 H (1.3-7.7) k/uL Lymphocytes # 0.7 L (1.0-4.8) k/uL Chloride 108 H (98-107) mmol/L BUN 21 H (9-20) mg/dL Creatinine 1.30 H (0.66-1.25) mg/dL Glucose 126 H (74-99) mg/dL POC Glucose (mg/dL) 112 H (75-99) mg/dL Assessment and Plan Plan: ASSESSMENT: 1. Delirium. 2. Status post acute myocardial infarction. 3. Bradycardia. 4. Hypertension. 5. History of diabetes mellitus controlled. 6. Peripheral arterial disease. 7. Chronic kidney disease stage III. 8. Hyperkalemia resolved. PLAN: Continue present medical regimen discontinue all the hypnotics and Saturdays. Patient be given 1 dose of Haldol. Patient would benefit with removal of the pacemaker is okay with the instrument checker and inability to the patient. The patient condition discussed with the patient's daughter at the bedside and reassure that I do not think patient has had a CVA. Expect him to improve. Case discussed with Dr. Morillo the instrument checker. A urine be sent for culture total evidence suggestive of infection Hill catheter can be removed after the pacemaker was removed and patient can be ambulated
[2016-10-16 12:15] LABS: Glucose,Whole Blood 115 mg/dL (75-99)
[2016-10-16] MEDS: MULTIVITAMINS, THERA 1 EACH TAB PO SCH (12:16)
--- NOTE | 2016-10-16 14:53 | P.PN ---
Subjective Principal diagnosis: Acute coronary syndrome This is a pleasant 86-year-old gentleman with a known CAD and prior CABG, hypertension, dyslipidemia, presented to the hospital was a chest discomfort and was diagnosed with acute inferior ST elevation myocardial infarction. He underwent an emergent heart catheterization and was found to have an acute/ subacute total occlusion of the SVG to RCA. An attempt to open the SVG to RCA was done and was unsuccessful in review of the large thrombus burden. During the procedure the patient developed cardiac arrest with severity bradycardia and asystole. Transvenous temporary pacemaker was placed. On follow-up with the patient today, he is asymptomatic and denies having any chest pain or shortness of breath. The temporary pacemaker still there and the patient has not been using it. He continues to be in a sinus rhythm. He continues to be hemodynamically stable. today, he seems to be confused and also seems to be slightly agitated. I am going to DC the temporary pacemaker. Continue the dual antiplatelet therapy and statin. Start the patient on small dose of metoprolol.the patient can be transferred into selective unit. Objective - Vital Signs Vital signs: Vital Signs Temp 97.6 F 10/16/16 12:00 Pulse 81 10/16/16 14:00 Resp 19 10/16/16 14:00 BP 118/70 10/16/16 06:00 Pulse Ox 94 L 10/16/16 14:00 Intake & Output 10/15/16 10/16/16 10/16/16 18:59 06:59 18:59 Intake Total 1300 1200 920 Output Total 342 775 730 Balance 958 425 190 Weight 73.4 kg 74.6 kg Intake: IV 1200 1200 800 Dextrose 5% in Water 1, 400 000 ml @ 100 mls/hr IV . Q10H [facility] Rx#:[id number] Sodium Chloride 0.9% 1, 800 1200 800 000 ml @ 100 mls/hr IV . Q10H [facility] Rx#:[id number] Intake, IV Titration 100 Amount Sodium Chloride 0.9% 1, 100 000 ml @ 100 mls/hr IV . Q10H [facility] Rx#:[id number] Oral 120 Output: Urine 340 775 730 Stool 2 Other: Voiding Method Urinal Indwelling Catheter Indwelling Catheter # Voids 1 1 # Bowel Movements 1 ABP, PAP, CO, CI - Last Documented Arterial Blood Pressure 128/62 - Constitutional General appearance: Present: no acute distress - Respiratory Respiratory: bilateral: CTA - Cardiovascular Rhythm: regular Heart sounds: normal: S1, S2 - Labs CBC & Chem 7: 10/16/16 04:10 10/16/16 04:10 Labs: Abnormal Lab Results - Last 24 Hours (Table) 10/15/16 10/15/16 10/16/16 Range/Units 18:32 20:18 04:10 RBC 3.61 L (4.30-5.90) m/uL Hgb 11.7 L (13.0-17.5) gm/dL Hct 35.3 L (39.0-53.0) % Plt Count 100 L (150-450) k/uL Neutrophils # 7.8 H (1.3-7.7) k/uL Lymphocytes # 0.7 L (1.0-4.8) k/uL Chloride (98-107) mmol/L BUN (9-20) mg/dL Creatinine (0.66-1.25) mg/dL Glucose (74-99) mg/dL POC Glucose (mg/dL) 189 H 162 H (75-99) mg/dL Urine Protein (Negative) Urine Blood (Negative) Ur Leukocyte Esterase (Negative) Urine RBC (0-5) /hpf Urine WBC (0-5) /hpf Calcium Oxalate Crystal (None) /hpf Urine Mucus (None) /hpf 10/16/16 10/16/16 10/16/16 Range/Units 04:10 07:29 11:20 RBC (4.30-5.90) m/uL Hgb (13.0-17.5) gm/dL Hct (39.0-53.0) % Plt Count (150-450) k/uL Neutrophils # (1.3-7.7) k/uL Lymphocytes # (1.0-4.8) k/uL Chloride 108 H (98-107) mmol/L BUN 21 H (9-20) mg/dL Creatinine 1.30 H (0.66-1.25) mg/dL Glucose 126 H (74-99) mg/dL POC Glucose (mg/dL) 112 H (75-99) mg/dL Urine Protein Trace H (Negative) Urine Blood Moderate H (Negative) Ur Leukocyte Esterase Small H (Negative) Urine RBC 90 H (0-5) /hpf Urine WBC 14 H (0-5) /hpf Calcium Oxalate Crystal Rare H (None) /hpf Urine Mucus Rare H (None) /hpf 10/16/16 Range/Units 12:14 RBC (4.30-5.90) m/uL Hgb (13.0-17.5) gm/dL Hct (39.0-53.0) % Plt Count (150-450) k/uL Neutrophils # (1.3-7.7) k/uL Lymphocytes # (1.0-4.8) k/uL Chloride (98-107) mmol/L BUN (9-20) mg/dL Creatinine (0.66-1.25) mg/dL Glucose (74-99) mg/dL POC Glucose (mg/dL) 115 H (75-99) mg/dL Urine Protein (Negative) Urine Blood (Negative) Ur Leukocyte Esterase (Negative) Urine RBC (0-5) /hpf Urine WBC (0-5) /hpf Calcium Oxalate Crystal (None) /hpf Urine Mucus (None) /hpf Assessment and Plan Plan: Assessment #[address] elevation myocardial infarction #2 known CAD with a prior CABG as described above #3 dyslipidemia #4 chronic kidney disease Plan #1 the patient attempted PCI of the SVG to RCA which was unsuccessful #2 continue the current medical treatment using dual antiplatelet therapy and a statin #3 add small dose of metoprolol #4 DC temporary pacemaker #5 follow-up with the patient
[2016-10-16 17:30] LABS: Glucose,Whole Blood 129 mg/dL (75-99)
[2016-10-16 20:44] LABS: Glucose,Whole Blood 117 mg/dL (75-99)
[2016-10-16] MEDS: METOPROLOL TARTRATE 12.5 MG TAB PO SCH (20:51)
[2016-10-17] MEDS: SODIUM CHLORIDE 0.9% 1,000 ML IV SCH (03:14)
[2016-10-17 06:09] LABS: Glucose,Whole Blood 84 mg/dL (75-99)
[2016-10-17] MEDS: INSULIN LISPRO (humaLOG) 300 UNIT/3 ML VIAL SQ SCH ×3 (06:14→17:27)
[2016-10-17 06:32] LABS: Basophils % (A) 0 %; CH 32.2; CHCM 32.6; Eosinophils # (A) 0.1 k/uL (0-0.7); Eosinophils % (A) 2 %; HCT 33.7 % (39.0-53.0); HDW 2.58; Luc # (Auto) 0.06; Luc % (Auto) 1; Lymphocytes # (A) 1.1 k/uL (1.0-4.8); Lymphocytes % (A) 16 %; MCH 32.3 pg (25.0-35.0); MCHC 32.5 g/dL (31.0-37.0); MCV 99.4 fL (80.0-100.0); Mean Platelet Volume 8.4; Monocytes # (A) 0.5 k/uL (0-1.0); Monocytes % (A) 6 %; Neutrophils # (A) 5.3 k/uL (1.3-7.7); Neutrophils % (A) 75 %; RBC 3.39 m/uL (4.30-5.90); RDW 14.1 % (11.5-15.5); WBC (Perox) 7.35
[2016-10-17 06:53] LABS: Calcium 8.5 mg/dL (8.4-10.2); Magnesium 1.8 mg/dL (1.6-2.3); Phosphorous 3.4 mg/dL (2.5-4.5); Potassium 4.8 mmol/L (3.5-5.1)
[2016-10-17] MEDS: CLOPIDOGREL 75 MG TAB PO SCH (08:16)
[2016-10-17] MEDS: ATORVASTATIN 10 MG TAB PO SCH (08:16)
[2016-10-17] MEDS: FAMOTIDINE 20 MG TAB PO SCH (08:16)
[2016-10-17] MEDS: ASPIRIN 81 MG CHEW PO SCH (08:16)
[2016-10-17] MEDS: METOPROLOL TARTRATE 12.5 MG TAB PO SCH ×2 (08:16→20:06)
[2016-10-17] MEDS: metFORMIN 500 MG TAB PO SCH (08:17)
[2016-10-17 11:47] LABS: Glucose,Whole Blood 133 mg/dL (75-99)
--- NOTE | 2016-10-17 11:52 | P.PN ---
Subjective Principal diagnosis: Inferior STEMI This is a pleasant 86-year-old gentleman with known history of coronary artery disease and prior bypass surgery, hypertension, hyperlipidemia, who presented to the hospital with an acute inferior wall ST elevation myocardial infarction. He underwent an emergent heart catheterization and was found to have an acute/subacute total occlusion of the SVG to the RCA, an attempt was made to open the SVG which was unsuccessful due to large thrombus burden. During the case, patient developed cardiac arrest with severe bradycardia and asystole and a temporary pacer was placed. This was removed in the intensive care unit and patient was transferred to telemetry. At the time of my examination this morning, he is quite sleepy, was very agitated through the night last night. Currently on aspirin, Lipitor, Plavix, metoprolol tartrate, not on BERNIE inhibitor, because of hypotension and mildly elevated renal function. Objective - Vital Signs Vital signs: Vital Signs Temp 97.3 F L 10/17/16 08:00 Pulse 103 H 10/17/16 08:00 Resp 14 10/17/16 08:00 BP 107/57 10/17/16 08:00 Pulse Ox 94 L 10/17/16 08:00 Intake & Output 10/16/16 10/17/16 10/17/16 18:59 06:59 18:59 Intake Total 1320 1100 100 Output Total 1055 750 100 Balance 265 350 0 Weight 67 kg Intake: IV 1200 1100 Sodium Chloride 0.9% 1, 1200 1100 000 ml @ 100 mls/hr IV . Q10H [facility] Rx#:[id number] Oral 120 100 Output: Urine 1055 750 100 Other: Voiding Method Indwelling Catheter Indwelling Catheter Urinal # Voids 1 ABP, PAP, CO, CI - Last Documented Arterial Blood Pressure 128/62 - Exam PHYSICAL EXAMINATION: HEENT: Head is atraumatic, normocephalic. Pupils equal, round. Neck is supple. There is no elevated jugular venous pressure. HEART EXAMINATION: Heart S1, S2 normal. No murmur or gallop heard. CHEST EXAMINATION: Lungs are clear to auscultation and precussion. No chest wall tenderness is noted on palpation or with deep breathing. ABDOMEN: Soft, nontender. Bowel sounds are heard. No organomegaly noted. EXTREMITIES: 2+ peripheral pulses with no evidence of peripheral edema and no calf tenderness noted. NEUROLOGIC [patient is sleepy, difficult to arouse. . - Labs CBC & Chem 7: 10/17/16 05:56 10/17/16 05:51 Labs: Abnormal Lab Results - Last 24 Hours (Table) 10/16/16 10/16/16 10/16/16 Range/Units 11:20 12:14 17:28 RBC (4.30-5.90) m/uL Hgb (13.0-17.5) gm/dL Hct (39.0-53.0) % Plt Count (150-450) k/uL Chloride (98-107) mmol/L BUN (9-20) mg/dL Creatinine (0.66-1.25) mg/dL POC Glucose (mg/dL) 115 H 129 H (75-99) mg/dL Urine Protein Trace H (Negative) Urine Blood Moderate H (Negative) Ur Leukocyte Esterase Small H (Negative) Urine RBC 90 H (0-5) /hpf Urine WBC 14 H (0-5) /hpf Calcium Oxalate Crystal Rare H (None) /hpf Urine Mucus Rare H (None) /hpf 10/16/16 10/17/16 10/17/16 Range/Units 20:39 05:51 05:56 RBC 3.39 L (4.30-5.90) m/uL Hgb 11.0 L (13.0-17.5) gm/dL Hct 33.7 L (39.0-53.0) % Plt Count 107 L (150-450) k/uL Chloride 108 H (98-107) mmol/L BUN 22 H (9-20) mg/dL Creatinine 1.45 H (0.66-1.25) mg/dL POC Glucose (mg/dL) 117 H (75-99) mg/dL Urine Protein (Negative) Urine Blood (Negative) Ur Leukocyte Esterase (Negative) Urine RBC (0-5) /hpf Urine WBC (0-5) /hpf Calcium Oxalate Crystal (None) /hpf Urine Mucus (None) /hpf Microbiology - Last 24 Hours (Table) 10/16/16 11:20 Urine Culture - Preliminary Urine,Catheterized Assessment and Plan (1) ST elevation myocardial infarction (STEMI) of inferior wall Status: Acute (2) Hx of CABG Status: Acute (3) Cardiac arrest Status: Acute (4) History of temporary cardiac pacemaker treatment Status: Acute (5) Hyperlipemia Status: Acute (6) HTN (hypertension) Status: Acute (7) CKD (chronic kidney disease) Status: Acute (8) Mental status change Status: Acute Plan: Patient did present to the hospital with an acute inferior wall ST elevation myocardial infarction, he underwent attempted PCI of the SVG to the RCA. We will continue his current medications. Continue to monitor. Further recommendations to follow. DNP note has been reviewed, I agree with a documented findings and plan of care. Patient was seen and examined.
[2016-10-17] MEDS: MULTIVITAMINS, THERA 1 EACH TAB PO SCH (12:06)
[2016-10-17 16:52] LABS: Glucose,Whole Blood 146 mg/dL (75-99)
[2016-10-17 20:21] VITALS: RESP 18
[2016-10-17 20:49] LABS: Glucose,Whole Blood 154 mg/dL (75-99)
[2016-10-18 01:01] LABS: Glucose,Whole Blood 121 mg/dL (75-99)
[2016-10-18] MEDS: INSULIN LISPRO (humaLOG) 300 UNIT/3 ML VIAL SQ SCH ×5 (01:02→23:30)
[2016-10-18 06:07] LABS: Glucose,Whole Blood 112 mg/dL (75-99)
[2016-10-18 07:05] LABS: Basophils % (A) 0 %; CH 32.3; CHCM 32.7; Eosinophils # (A) 0.1 k/uL (0-0.7); Eosinophils % (A) 2 %; HCT 37.6 % (39.0-53.0); HDW 2.59; HGB 12.2 gm/dL (13.0-17.5); Luc # (Auto) 0.09; Luc % (Auto) 1; Lymphocytes # (A) 0.8 k/uL (1.0-4.8); Lymphocytes % (A) 10 %; MCH 32.3 pg (25.0-35.0); MCHC 32.5 g/dL (31.0-37.0); MCV 99.4 fL (80.0-100.0); Monocytes # (A) 0.5 k/uL (0-1.0); Monocytes % (A) 6 %; Neutrophils # (A) 6.4 k/uL (1.3-7.7); Neutrophils % (A) 81 %; RBC 3.79 m/uL (4.30-5.90); RDW 14.1 % (11.5-15.5); WBC 7.9 k/uL (3.8-10.6); WBC (Perox) 8.22
[2016-10-18 07:11] LABS: Calcium 8.8 mg/dL (8.4-10.2); Magnesium 1.9 mg/dL (1.6-2.3); Phosphorous 3.5 mg/dL (2.5-4.5); Potassium 4.7 mmol/L (3.5-5.1)
--- NOTE | 2016-10-18 08:08 | PN ---
CHIEF COMPLAINT: Re-evaluation. HISTORY OF PRESENT ILLNESS: This is an elderly gentleman, 86 years of age, who was admitted to the hospital with an acute inferior wall myocardial infarction. The patient is doing better. Patient had an episode of delirium, which has resolved. REVIEW OF SYSTEMS: NEURO: Denies any headaches, dizziness. PSYCH: No anxiety, depression. CARDIAC: No chest pain, angina, palpitation. RESPIRATORY: No shortness of breath, cough, hemoptysis. GI: No nausea, vomiting, abdominal pain, diarrhea. Did have a bowel movement. : No symptoms of dysuria, hematuria. EXTREMITIES: No pain. CONSTITUTIONAL: No fever or chills. PHYSICAL EXAMINATION: Pleasant gentleman in no distress at present. Vital signs revealed temperature 97.3, pulse 103, respirations 14, blood pressure was 107/57. HEENT: Normocephalic. NECK: No JVD. Chest is clear to auscultation. CARDIAC: Normal S1, S2 with no gallops. Systolic murmur 2/6 left sternal border. ABDOMEN: Soft. Bowel sounds present. Extremities reveal no edema. NEUROLOGIC: Awake, alert, oriented with well coordinated movements. LABORATORY ASSESSMENT: Platelet count of 107. BUN 22, creatinine 1.45. Blood sugar 84. ASSESSMENT: 1. Status post acute inferior wall myocardial infarction. 2. Chronic kidney disease, 3. 3. Diabetes mellitus. 4. Hypertension. 5. Known history of coronary artery disease with previous CABG. PLAN: The patient is stable. Continue present medical regimen. The patient's condition was discussed with the patient. Prognosis guarded. Potential discharge in the next 24 to 48 hours. Patient is on aspirin, Plavix and Lipitor as well as metoprolol small dose, which has been held because of lower blood pressure. Patient's IV has been discontinued. Patient will be ambulated.
[2016-10-18] MEDS: ASPIRIN 81 MG CHEW PO SCH (09:11)
[2016-10-18] MEDS: ATORVASTATIN 10 MG TAB PO SCH (09:11)
[2016-10-18] MEDS: CLOPIDOGREL 75 MG TAB PO SCH (09:11)
[2016-10-18] MEDS: metFORMIN 500 MG TAB PO SCH (09:11)
[2016-10-18] MEDS: METOPROLOL TARTRATE 12.5 MG TAB PO SCH ×2 (09:11→23:24)
[2016-10-18] MEDS: FAMOTIDINE 20 MG TAB PO SCH (09:11)
[2016-10-18] MEDS: MULTIVITAMINS, THERA 1 EACH TAB PO SCH (09:11)
[2016-10-18 11:49] LABS: Glucose,Whole Blood 196 mg/dL (75-99)
[2016-10-18 12:10] VITALS: BMI 22.2
--- NOTE | 2016-10-18 12:25 | P.PN ---
Subjective Principal diagnosis: Acute myocardial infarction History present illness: This 86-year-old gentleman was admitted to the hospital with interscapular chest pain and noted ST elevation UT of the inferior wall. PTCA was attempted without success. Patient has completed myocardial infarction without much symptoms or shortness of breath or any significant arrhythmia. He did need a temporary pacemaker initially. Patient is doing well. Denies any symptoms at present. He does not walk much because his right heel hurts. There is no sores or suggestion of any tenderness at the heel. Patient says this is a chronic problem and he walks with some soft shoes. Patient had an episode of delirium which is resolved his alert and oriented. No significant arrhythmia noted. He had occasional PVCs REVIEW OF SYSTEMS: Neuro: Denies any headaches dizziness. Psych: Denies anxiety depression feels oriented. Cardiac: Denies chest pain and angina palpitations. Respiratory: Denies shortness of breath cough. GI: Denies nausea vomiting or abdominal pain. No diarrhea or constipation, no bowel movement yet. : Denies dysuria hematuria. Extremities: Pain right heel when he walks Skin: Intact. Constitutional: No fever, chills. Objective - Vital Signs Vital signs: Vital Signs Temp 98.0 F 10/18/16 12:00 Pulse 76 10/18/16 12:00 Resp 18 10/18/16 12:00 BP 124/62 10/18/16 12:00 Pulse Ox 97 10/18/16 12:00 Intake & Output 10/17/16 10/18/16 10/18/16 18:59 06:59 18:59 Intake Total 100 180 Output Total 400 700 1 Balance -300 -700 179 Weight 68.4 kg 68.4 kg Intake: Oral 100 180 Output: Urine 400 700 Stool 1 Other: Voiding Method Urinal Urinal Urinal # Voids 1 1 ABP, PAP, CO, CI - Last Documented Arterial Blood Pressure 128/62 PHYSICAL EXAMINATION: Cooperative, at present in no acute distress. HEENT: Neck supple. No JVD. Chest: Clear to auscultation percussion. Cardiac: Normal S1-S2 no gallops no murmur . Abdomen: Soft bowel sounds present. Extremities: No edema no tenderness at right heel Neurologically: Awake, alert, oriented with well-coordinated movements. - Labs CBC & Chem 7: 10/18/16 06:26 10/18/16 06:26 Labs: Abnormal Lab Results - Last 24 Hours (Table) 10/17/16 10/17/16 10/18/16 Range/Units 16:42 20:47 00:59 RBC (4.30-5.90) m/uL Hgb (13.0-17.5) gm/dL Hct (39.0-53.0) % Plt Count (150-450) k/uL Lymphocytes # (1.0-4.8) k/uL BUN (9-20) mg/dL Creatinine (0.66-1.25) mg/dL Glucose (74-99) mg/dL POC Glucose (mg/dL) 146 H 154 H 121 H (75-99) mg/dL 10/18/16 10/18/16 10/18/16 Range/Units 06:05 06:26 06:26 RBC 3.79 L (4.30-5.90) m/uL Hgb 12.2 L (13.0-17.5) gm/dL Hct 37.6 L (39.0-53.0) % Plt Count 116 L (150-450) k/uL Lymphocytes # 0.8 L (1.0-4.8) k/uL BUN 31 H (9-20) mg/dL Creatinine 1.65 H (0.66-1.25) mg/dL Glucose 138 H (74-99) mg/dL POC Glucose (mg/dL) 112 H (75-99) mg/dL 10/18/16 Range/Units 11:37 RBC (4.30-5.90) m/uL Hgb (13.0-17.5) gm/dL Hct (39.0-53.0) % Plt Count (150-450) k/uL Lymphocytes # (1.0-4.8) k/uL BUN (9-20) mg/dL Creatinine (0.66-1.25) mg/dL Glucose (74-99) mg/dL POC Glucose (mg/dL) 196 H (75-99) mg/dL Microbiology - Last 24 Hours (Table) 10/16/16 11:20 Urine Culture - Final Urine,Catheterized Assessment and Plan Plan: ASSESSMENT: 1. Acute myocardial infarction improving. 2. Coronary artery disease with previous CABG. 3. Bradycardia Arrhythmia resolved. 4. Diabetes mellitus controlled C. 5. CK D3. 6. PAD. PLAN: Continue present medical regimen. Discharge plan for tomorrow if arrangements are made for home care and possibly patient moving in with the daughter on a temporary basis discussed with cardiology.
--- NOTE | 2016-10-18 13:58 | P.PN ---
Subjective Principal diagnosis: Inferior STEMI This is a pleasant 86-year-old gentleman with known history of coronary artery disease and prior bypass surgery, hypertension, hyperlipidemia, who presented to the hospital with an acute inferior wall ST elevation myocardial infarction. He underwent an emergent heart catheterization and was found to have an acute/subacute total occlusion of the SVG to the RCA, an attempt was made to open the SVG which was unsuccessful due to large thrombus burden. During the case, patient developed cardiac arrest with severe bradycardia and asystole and a temporary pacer was placed. This was removed in the intensive care unit and patient was transferred to telemetry. At the time of my examination this morning, patient is much more alert, his sister is at his bedside. He knows where he is in what was done here. Discharge planning is in place, planning for possible discharge home in 24 hours if stable. Objective - Vital Signs Vital signs: Vital Signs Temp 98.0 F 10/18/16 12:00 Pulse 76 10/18/16 12:00 Resp 18 10/18/16 12:00 BP 124/62 10/18/16 12:00 Pulse Ox 97 10/18/16 12:00 Intake & Output 10/17/16 10/18/16 10/18/16 18:59 06:59 18:59 Intake Total 100 180 Output Total 400 700 1 Balance -300 -700 179 Weight 68.4 kg 68.4 kg Intake: Oral 100 180 Output: Urine 400 700 Stool 1 Other: Voiding Method Urinal Urinal Urinal # Voids 1 1 ABP, PAP, CO, CI - Last Documented Arterial Blood Pressure 128/62 - Exam PHYSICAL EXAMINATION: HEENT: Head is atraumatic, normocephalic. Pupils equal, round. Neck is supple. There is no elevated jugular venous pressure. HEART EXAMINATION: Heart S1, S2 normal. No murmur or gallop heard. CHEST EXAMINATION: Lungs are clear to auscultation and precussion. No chest wall tenderness is noted on palpation or with deep breathing. ABDOMEN: Soft, nontender. Bowel sounds are heard. No organomegaly noted. EXTREMITIES: 2+ peripheral pulses with no evidence of peripheral edema and no calf tenderness noted. NEUROLOGIC [patient alert and oriented 3 today. . - Labs CBC & Chem 7: 10/18/16 06:26 10/18/16 06:26 Labs: Abnormal Lab Results - Last 24 Hours (Table) 10/17/16 10/17/16 10/18/16 Range/Units 16:42 20:47 00:59 RBC (4.30-5.90) m/uL Hgb (13.0-17.5) gm/dL Hct (39.0-53.0) % Plt Count (150-450) k/uL Lymphocytes # (1.0-4.8) k/uL BUN (9-20) mg/dL Creatinine (0.66-1.25) mg/dL Glucose (74-99) mg/dL POC Glucose (mg/dL) 146 H 154 H 121 H (75-99) mg/dL 10/18/16 10/18/16 10/18/16 Range/Units 06:05 06:26 06:26 RBC 3.79 L (4.30-5.90) m/uL Hgb 12.2 L (13.0-17.5) gm/dL Hct 37.6 L (39.0-53.0) % Plt Count 116 L (150-450) k/uL Lymphocytes # 0.8 L (1.0-4.8) k/uL BUN 31 H (9-20) mg/dL Creatinine 1.65 H (0.66-1.25) mg/dL Glucose 138 H (74-99) mg/dL POC Glucose (mg/dL) 112 H (75-99) mg/dL 10/18/16 Range/Units 11:37 RBC (4.30-5.90) m/uL Hgb (13.0-17.5) gm/dL Hct (39.0-53.0) % Plt Count (150-450) k/uL Lymphocytes # (1.0-4.8) k/uL BUN (9-20) mg/dL Creatinine (0.66-1.25) mg/dL Glucose (74-99) mg/dL POC Glucose (mg/dL) 196 H (75-99) mg/dL Microbiology - Last 24 Hours (Table) 10/16/16 11:20 Urine Culture - Final Urine,Catheterized Assessment and Plan (1) ST elevation myocardial infarction (STEMI) of inferior wall Status: Acute (2) Hx of CABG Status: Acute (3) Cardiac arrest Status: Acute (4) History of temporary cardiac pacemaker treatment Status: Acute (5) Hyperlipemia Status: Acute (6) HTN (hypertension) Status: Acute (7) CKD (chronic kidney disease) Status: Acute (8) Mental status change Status: Acute Plan: Patient did present to the hospital with an acute inferior wall ST elevation myocardial infarction, he underwent attempted PCI of the SVG to the RCA. We will continue his current medications. Continue to monitor. Discharge planning in place, possible discharge home in the morning if stable. Further recommendations to follow. DNP note has been reviewed, I agree with a documented findings and plan of care. Patient was seen and examined.
[2016-10-18 17:19] LABS: Glucose,Whole Blood 159 mg/dL (75-99)
[2016-10-18 21:05] LABS: Glucose,Whole Blood 163 mg/dL (75-99)
[2016-10-18 23:30] LABS: Glucose,Whole Blood 185 mg/dL (75-99)
[2016-10-19 06:02] LABS: Glucose,Whole Blood 151 mg/dL (75-99)
[2016-10-19 06:29] LABS: Basophils % (A) 0 %; CH 32.6; CHCM 33.3; Eosinophils # (A) 0.1 k/uL (0-0.7); Eosinophils % (A) 1 %; HCT 33.1 % (39.0-53.0); HDW 2.66; HGB 10.9 gm/dL (13.0-17.5); Luc # (Auto) 0.11; Luc % (Auto) 2; Lymphocytes % (A) 13 %; MCH 32.5 pg (25.0-35.0); MCV 98.5 fL (80.0-100.0); Mean Platelet Volume 8.9; Monocytes # (A) 0.6 k/uL (0-1.0); Monocytes % (A) 7 %; Neutrophils # (A) 5.9 k/uL (1.3-7.7); Neutrophils % (A) 77 %; RBC 3.36 m/uL (4.30-5.90); RDW 14.1 % (11.5-15.5); WBC 7.6 k/uL (3.8-10.6)
[2016-10-19 06:43] LABS: Calcium 8.5 mg/dL (8.4-10.2); Magnesium 1.8 mg/dL (1.6-2.3); Phosphorous 3.9 mg/dL (2.5-4.5); Potassium 4.5 mmol/L (3.5-5.1)
[2016-10-19] MEDS: INSULIN LISPRO (humaLOG) 300 UNIT/3 ML VIAL SQ SCH ×2 (06:54→12:14)
--- NOTE | 2016-10-19 08:19 | P.DS ---
Providers Date of admission: 10/14/16 13:55 Attending physician: Derrick Garcia Consults: 10/14/16 15:55 Consult Physician Routine Consulting Provider: [facility] Consult Reason/Comments: Post Interventional patient Do you want consulting provider notified?: Already Contacted Primary care physician: Shen Baldwin [facility] Course: History present illness: This 86-year-old gentleman was admitted to the hospital with interscapular pain. The patient's noted on EKG to have an ST elevated myocardial infarction affecting the inferior wall. The patient is 86 years of age. He also has underlying history of coronary artery disease with a previous CABG. Patient was taken for cardiac cath and noted to have an occlusion of an SVG which could not be opened up. Patient did have a brief asystole during the procedure. A temporary pacemaker was placed. The patient basically remained stable hemodynamically area of the blood pressures initially were low required significant amount of fluid. The patient has done fairly well with no symptoms of angina, palpitations, dizziness or syncope. Patient's vital signs are stable. Blood pressure is mildly on the lower side at times. The patient is on a small dose of beta sandra and are breath. He'll continue on the statin aspirin and Plavix. Patient's currently transferred for some brief rehab. He does have some discomfort of the right heel for no clear evidence of any bedsore. Patient does have a history of gout but this does not appear to be. Patient also has history of peripheral arterial disease. Patient 's blood sugars adequately maintained. Hospital course: Initial ICU care as subsequent selective care. Patient has not required any further significant interventions. He did have some delirium for about 24 hours duration probably related to confinement and medications. At the time of discharge patient's condition stable. Patient was DO NOT RESUSCITATE during the hospital stay. Final diagnoses to include 1. Acute inferior wall myocardial infarction, ST elevated 2. Known coronary artery disease 3. Cardiac arrest 4. Asystole and bradycardia 5. 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 Peripheral arterial disease 7. Chronic kidney disease stage III 8. Hypertension 9. Hyperlipidemia 10. History of gout Patient Condition at Discharge: Critical Plan - Discharge Summary Discharge Medication List Simvastatin [Zocor] 10 mg PO DAILY 06/18/16 [History] metFORMIN HCL [Glucophage] 500 mg PO DAILY 06/18/16 [History] Nitroglycerin Sl Tabs [Nitrostat] 0.4 mg SUBLINGUAL Q5M PRN #25 tab 06/19/16 [Rx ] Fish Oil/Dha/Epa [Fish Oil 1,200 mg Fish Oil] 1 cap PO DAILY 10/14/16 [History] Isosorbide Mononitrate ER [Imdur] 30 mg PO DAILY 10/14/16 [History] Multivitamin [Men's Multi-Vitamin] 1 tab PO DAILY 10/14/16 [History] Aspirin 81 mg PO DAILY chew 10/19/16 [Rx] Calcium Carbonate [Tums] 1,000 mg PO QID PRN #0 chew 10/19/16 [Rx] Clopidogrel [Plavix] 75 mg PO DAILY tab 10/19/16 [Rx] Famotidine [Pepcid] 20 mg PO DAILY tab 10/19/16 [Rx] Losartan [Cozaar] 25 mg PO DAILY tab 10/19/16 [Rx] Mag Hydrox/Al Hydrox/Simeth [Maalox] 30 ml PO Q4HR PRN #0 cup 10/19/16 [Rx] Metoprolol Tartrate [Lopressor] 12.5 mg PO BID tab 10/19/16 [Rx] Nitroglycerin Sl Tabs [Nitrostat] 0.4 mg SUBLINGUAL Q5M PRN #0 tab 10/19/16 [Rx] Follow up Appointment(s)/Referral(s): Shen Baldwin MD [Primary Care Provider] - 1-2 days Derrick Garcia MD [STAFF PHYSICIAN] - 1 Week
[2016-10-19] MEDS: ATORVASTATIN 10 MG TAB PO SCH (08:34)
[2016-10-19] MEDS: FAMOTIDINE 20 MG TAB PO SCH (08:34)
[2016-10-19] MEDS: METOPROLOL TARTRATE 12.5 MG TAB PO SCH (08:34)
[2016-10-19] MEDS: ASPIRIN 81 MG CHEW PO SCH (08:35)
[2016-10-19] MEDS: MULTIVITAMINS, THERA 1 EACH TAB PO SCH (08:35)
[2016-10-19] MEDS: CLOPIDOGREL 75 MG TAB PO SCH (08:35)
[2016-10-19] MEDS: metFORMIN 500 MG TAB PO SCH (08:35)
[2016-10-19 08:42] VITALS: TEMP 97.6
[2016-10-19] MEDS ORDERED: LOSARTAN 25 MG TAB PO SCH (09:00)
--- NOTE | 2016-10-19 11:13 | XR ---
EXAMINATION TYPE: XR chest 2V DATE OF EXAM: 10/19/2016 11:07 AM COMPARISON: Prior chest x-ray June 18, 2016. HISTORY: ECF placement. TECHNIQUE: Frontal and lateral views of the chest are obtained. FINDINGS: Post CABG changes with mediastinal clips and sternal wires is redemonstrated. Epicardial p acer wires are again seen. There is chronic emphysematous change with new patchy left basilar atelect asis and/or infiltrate and suspected tiny bilateral pleural effusions with blunting of posterior and lateral costophrenic angles. Upper lungs are clear without pneumothorax. Cardiac silhouette size is s table and upper limits of normal with atherosclerotic thoracic aorta. Osseous structures are deminera lized. Degenerative change both glenohumeral joints is noted. IMPRESSION: Chronic parenchymal changes with new patchy left basilar atelectasis and/or infiltrate, and tiny bilateral pleural effusions are felt present.
[2016-10-19 11:46] LABS: Glucose,Whole Blood 173 mg/dL (75-99)
[2016-10-19 12:00] VITALS: BP 136/52; PULSE 78
--- NOTE | 2016-10-19 15:25 | P.PN ---
Subjective Principal diagnosis: Inferior STEMI This is a pleasant 86-year-old gentleman with known history of coronary artery disease and prior bypass surgery, hypertension, hyperlipidemia, who presented to the hospital with an acute inferior wall ST elevation myocardial infarction. He underwent an emergent heart catheterization and was found to have an acute/subacute total occlusion of the SVG to the RCA, an attempt was made to open the SVG which was unsuccessful due to large thrombus burden. During the case, patient developed cardiac arrest with severe bradycardia and asystole and a temporary pacer was placed. This was removed in the intensive care unit and patient was transferred to telemetry. At the time of my examination this morning, patient is much more alert, his sister is at his bedside. He knows where he is in what was done here. Discharge planning is in place, planning for possible discharge home today. Objective - Vital Signs Vital signs: Vital Signs Temp 97.6 F 10/19/16 08:00 Pulse 78 10/19/16 11:58 Resp 18 10/19/16 11:58 BP 136/52 10/19/16 11:58 Pulse Ox 94 L 10/19/16 11:58 Intake & Output 10/18/16 10/19/16 10/19/16 18:59 06:59 18:59 Intake Total 180 596 Output Total 467 778 530 Balance -287 -778 66 Weight 68.4 kg 68.4 kg Intake: Oral 180 596 Output: Urine 465 775 530 Stool 2 3 Other: Voiding Method Urinal Urinal Urinal # Voids 1 1 ABP, PAP, CO, CI - Last Documented Arterial Blood Pressure 128/62 - Exam PHYSICAL EXAMINATION: HEENT: Head is atraumatic, normocephalic. Pupils equal, round. Neck is supple. There is no elevated jugular venous pressure. HEART EXAMINATION: Heart S1, S2 normal. No murmur or gallop heard. CHEST EXAMINATION: Lungs are clear to auscultation and precussion. No chest wall tenderness is noted on palpation or with deep breathing. ABDOMEN: Soft, nontender. Bowel sounds are heard. No organomegaly noted. EXTREMITIES: 2+ peripheral pulses with no evidence of peripheral edema and no calf tenderness noted. NEUROLOGIC [patient alert and oriented 3 today. . - Labs CBC & Chem 7: 10/19/16 06:11 10/19/16 06:11 Labs: Abnormal Lab Results - Last 24 Hours (Table) 10/18/16 10/18/16 10/18/16 Range/Units 17:05 21:02 23:29 RBC (4.30-5.90) m/uL Hgb (13.0-17.5) gm/dL Hct (39.0-53.0) % Plt Count (150-450) k/uL BUN (9-20) mg/dL Creatinine (0.66-1.25) mg/dL Glucose (74-99) mg/dL POC Glucose (mg/dL) 159 H 163 H 185 H (75-99) mg/dL 10/19/16 10/19/16 10/19/16 Range/Units 05:59 06:11 06:11 RBC 3.36 L (4.30-5.90) m/uL Hgb 10.9 L (13.0-17.5) gm/dL Hct 33.1 L (39.0-53.0) % Plt Count 118 L (150-450) k/uL BUN 31 H (9-20) mg/dL Creatinine 1.50 H (0.66-1.25) mg/dL Glucose 137 H (74-99) mg/dL POC Glucose (mg/dL) 151 H (75-99) mg/dL 10/19/16 Range/Units 11:45 RBC (4.30-5.90) m/uL Hgb (13.0-17.5) gm/dL Hct (39.0-53.0) % Plt Count (150-450) k/uL BUN (9-20) mg/dL Creatinine (0.66-1.25) mg/dL Glucose (74-99) mg/dL POC Glucose (mg/dL) 173 H (75-99) mg/dL Assessment and Plan (1) ST elevation myocardial infarction (STEMI) of inferior wall Status: Acute (2) Hx of CABG Status: Acute (3) Cardiac arrest Status: Acute (4) History of temporary cardiac pacemaker treatment Status: Acute (5) Hyperlipemia Status: Acute (6) HTN (hypertension) Status: Acute (7) CKD (chronic kidney disease) Status: Acute (8) Mental status change Status: Acute Plan: Patient did present to the hospital with an acute inferior wall ST elevation myocardial infarction, he underwent attempted PCI of the SVG to the RCA. We will continue his current medications. Possible discharge home today. Follow- up appointment will be made with Dr. Renetta Epps in the office post discharge. DNP note has been reviewed, I agree with a documented findings and plan of care. Patient was seen and examined.
== END 2016-10-19 16:35 | DRG 246 ==
LOC: EC 11:48 → 6ICU 13:55 → 6SEL 10-16 18:34
PROVIDERS: ADMIT Internal Medicine Interventional Cardiology; ATTEND Internal Medicine Interventional Cardiology
PROC: B2181ZZ Fluoroscopy of Left Internal Mammary Bypass Graft using Low Osmolar Contrast (ICD-10-PCS; principal; 2016-10-14 13:46)
PROC: 0270366 Dilation of Coronary Artery, One Artery, Bifurcation, with Three Drug-eluting Intraluminal Devices, Percutaneous Approach (ICD-10-PCS; principal; 2016-10-14 13:46)
PROC: 02C03Z6 Extirpation of Matter from Coronary Artery, One Artery, Bifurcation, Percutaneous Approach (ICD-10-PCS; principal; 2016-10-14 13:46)
PROC: 5A1223Z Performance of Cardiac Pacing, Continuous (ICD-10-PCS; principal; 2016-10-14 13:46)
PROC: B2111ZZ Fluoroscopy of Multiple Coronary Arteries using Low Osmolar Contrast (ICD-10-PCS; principal; 2016-10-14 13:46)
DX: I21.19 ST elevation (STEMI) myocardial infarction involving other coronary artery of inferior wall (principal); I46.9 Cardiac arrest, cause unspecified; E11.22 Type 2 diabetes mellitus with diabetic chronic kidney disease; I25.82 Chronic total occlusion of coronary artery; I25.810 Atherosclerosis of coronary artery bypass graft(s) without angina pectoris; I97.710 Intraoperative cardiac arrest during cardiac surgery; E87.5 Hyperkalemia; N42.9 Disorder of prostate, unspecified; N18.3 Chronic kidney disease, stage 3 (moderate); I73.9 Peripheral vascular disease, unspecified; I12.9 Hypertensive chronic kidney disease with stage 1 through stage 4 chronic kidney disease, or unspecified chronic kidney disease; E78.5 Hyperlipidemia, unspecified; M10.9 Gout, unspecified; I49.3 Ventricular premature depolarization; Z95.1 Presence of aortocoronary bypass graft; Z66 Do not resuscitate; Z87.891 Personal history of nicotine dependence; Z98.42 Cataract extraction status, left eye; Z79.899 Other long term (current) drug therapy; Z79.82 Long term (current) use of aspirin; Z79.84 Long term (current) use of oral hypoglycemic drugs; Z98.41 Cataract extraction status, right eye; Y83.2 Surgical operation with anastomosis, bypass or graft as the cause of abnormal reaction of the patient, or of later complication, without mention of misadventure at the time of the procedure; Z82.49 Family history of ischemic heart disease and other diseases of the circulatory system; Y84.0 Cardiac catheterization as the cause of abnormal reaction of the patient, or of later complication, without mention of misadventure at the time of the procedure; Y92.234 Operating room of hospital as the place of occurrence of the external cause
CPT/HCPCS: 33210; 36415; 71020; 80048; 80053; 81001; 82550; 82553; 83036; 83735; 83880; 84100; 84484; 85025; 85610; 85730; 87086; 93005; 93306; 93455; 99291

== ENCOUNTER → 2017-01-26 | Outpatient (CLI) | payer MEDICARE ==
--- NOTE | 2017-01-26 22:21 | MR ---
EXAMINATION TYPE: MR brain wo/w con DATE OF EXAM: 01/26/2017 2:14 PM COMPARISON: NONE HISTORY: Brain tumor CONTRAST: Performed utilizing 15 mL intravenous MultiHance gadolinium contrast. TECHNIQUE: Multiplanar, multiecho imaging on a 3.0 Melissa magnet is performed through the brain. Stud y is performed within 24 hours of arrival to the hospital. The craniovertebral junction is normal. The pituitary is normal. Diffusion-weighted imaging is performed. No abnormal hyperintensity is present to suggest an acute i ntracranial infarct or acute ischemic change. There are multiple scattered bilateral periventricular subcortical and deep white matter changes. Fin dings can be microvascular related. Other etiologies should be considered such as multiple sclerosis Lyme disease or vasculitis. Ventricles and sulci are prominent for the patient age. There is opacification of the right maxillary sinus. Some mucosal thickening is through ethmoid air c ells. No abnormal enhancement is evident. Note is made of some C2-3 disc bulging which may have cord contac t without cord deformity. IMPRESSIONS: 1. Extensive white matter changes 2. Atrophy
== END | disposition home or self-care (01) ==
LOC: RADMRIMAIN 12:32
PROVIDERS: ATTEND Psychiatry & Neurology Neurology
DX: G31.9 Degenerative disease of nervous system, unspecified (principal); R90.82 White matter disease, unspecified; D49.6 Neoplasm of unspecified behavior of brain
CPT/HCPCS: 82565; 84520; 70553; A9577

== ENCOUNTER → 2017-02-23 | Outpatient (CLI) | payer MEDICARE ==
--- NOTE | 2017-02-23 15:48 | NM ---
EXAMINATION TYPE: NM DatScan Brain SPECT DATE OF EXAM: 02/23/2017 3:33 PM COMPARISON: NONE HISTORY: Parkinson's disease TECHNIQUE: 10 drops of Lugol's solution was administered 1 hour prior to injection as a thyroid bloc rayne agent. After the administration of 4.22 mCi I-123 Ioflupane DaTscan. Images obtained 3 hours p ost injection. SPECT images of the brain were acquired with axial and coronal reconstructions. FINDINGS: The axial SPECT images demonstrate increased background activity and reduced activity withi n the bilateral striata. IMPRESSION: Abnormal appearance highly suggestive of idiopathic Parkinson's disease or Parkinsonian s yndrome.
== END | disposition home or self-care (01) ==
LOC: RADNMMAIN 10:04
PROVIDERS: ATTEND Psychiatry & Neurology Neurology
DX: G20 Parkinson's disease (principal)
CPT/HCPCS: 78607; A9584

== ENCOUNTER 2017-04-03 13:29 | Inpatient (IN) | payer MEDICARE ==
--- NOTE | 2017-04-03 13:48 | ED ---
General Adult HPI - General Chief complaint: Dizziness Stated complaint: Weakness Time Seen by Provider: 04/03/17 13:40 Source: patient, EMS, RN notes reviewed Mode of arrival: EMS Limitations: no limitations - History of Present Illness Initial comments: This is an 86-year-old male who presents to the emergency department complaining of weakness. Patient states he was on his tractor he was too weak to get off. Patient denies any headache patient denies any numbness or focal weakness. Patient denies chest pain difficulty breathing or palpitations. Patient denies any recent history of fever chills or cough. Patient denies any abdominal pain patient denies any recent history of nausea vomiting diarrhea. Patient denies any recent injury or trauma. Patient states he did not believe it was at hot outside he hydrated. Patient denies any dysuria hematuria urinary frequency. Patient has a past medical history of bypass surgery. - Related Data Home Medications Medication Instructions Recorded Confirmed metFORMIN HCL [Glucophage] 500 mg PO DAILY 06/18/16 04/03/17 Fish Oil/Dha/Epa [Fish Oil 1,200 1 cap PO DAILY 10/14/16 04/03/17 mg Fish Oil] Isosorbide Mononitrate ER [Imdur] 30 mg PO DAILY 10/14/16 04/03/17 Multivitamin [Men's Multi-Vitamin] 1 tab PO DAILY 10/14/16 04/03/17 Calcium Carbonate/Vitamin D3 1 tab PO DAILY 04/03/17 04/03/17 [Calcium 600-Vit D3 400 Caplet] Carbidopa-Levodopa 25-100 mg 1 tab PO TID 04/03/17 04/03/17 [Sinemet 25-100] Previous Rx's Medication Instructions Recorded Nitroglycerin Sl Tabs [Nitrostat] 0.4 mg SUBLINGUAL Q5M PRN #25 tab 06/19/16 Aspirin 81 mg PO DAILY chew 10/19/16 Clopidogrel [Plavix] 75 mg PO DAILY tab 10/19/16 Famotidine [Pepcid] 20 mg PO DAILY tab 10/19/16 Metoprolol Tartrate [Lopressor] 12.5 mg PO BID tab 10/19/16 Allergies Allergy/AdvReac Type Severity Reaction Status Date / Time No Known Allergies Allergy Verified 04/03/17 13:51 Review of Systems ROS Statement: Those systems with pertinent positive or pertinent negative responses have been documented in the HPI. ROS Other: All systems not noted in ROS Statement are negative. Past Medical History Past Medical History: Coronary Artery Disease (CAD), Chest Pain / Angina, Diabetes Mellitus, Hyperlipidemia, Hypertension, Prostate Disorder Additional Past Medical History / Comment(s): 10-14-16 STEMI History of Any Multi-Drug Resistant Organisms: None Reported Past Surgical History: Back Surgery, Coronary Bypass/CABG, Heart Catheterization , Orthopedic Surgery Additional Past Surgical History / Comment(s): 10-14-16 HEART CATH "CLOTS REMOVED AND 3 STENTS TO SVG TO PDA,STILL NO FLOW"2006 CABG -LT INTERNAL MAMMARY ARTERY GRAFT TO LAD, SVG TO DAIG, SVG TO PDA. carpal tunnel, cataracts removed, LASER PROCEDURE FOR ENLARGED PROSTATE, HEART CATH/PTCA 1982 Past Anesthesia/Blood Transfusion Reactions: No Reported Reaction Additional Past Anesthesia/Blood Transfusion Reaction / Comment(s): PT IS JEHOVAH WITNESS-NO BLOOD PRODUCTS Past Psychological History: No Psychological Hx Reported Smoking Status: Former smoker Past Alcohol Use History: Occasional Past Drug Use History: None Reported - Past Family History Mother History Unknown: Yes Family Medical History: Hypertension Father History Unknown: Yes Family Medical History: Hypertension General Exam - General Exam Comments Initial Comments: GENERAL: Patient is well-developed and well-nourished. Patient is nontoxic and well- hydrated and is in no acute distress. ENT: Neck is soft and supple. No significant lymphadenopathy is noted. Oropharynx is clear. Moist mucous membranes. EYES: The sclera were anicteric and conjunctiva were pink and moist. Extraocular movements were intact and pupils were equal round and reactive to light. Eyelids were unremarkable. PULMONARY: Unlabored respirations. Good breath sounds bilaterally. No audible rales rhonchi or wheezing was noted. CARDIOVASCULAR: There is a regular rate and rhythm without any murmurs gallops or rubs. ABDOMEN: Soft and nontender with normal bowel sounds. No palpable organomegaly was noted. There is no palpable pulsatile mass. SKIN: Skin is clear with no lesions or rashes and otherwise unremarkable. NEUROLOGIC: Patient is alert and oriented x3. Cranial nerves II through XII are grossly intact. Motor and sensory are also intact. Normal speech, volume and content. Symmetrical smile. MUSCULOSKELETAL: Normal extremities with adequate strength and full range of motion. No lower extremity swelling or edema. No calf tenderness. LYMPHATICS: No significant lymphadenopathy is noted PSYCHIATRIC: Normal psychiatric evaluation. Normal interpersonal interactions appears functionally intact in deals appropriately with others. No signs of depression. No signs of anxiety. No delusions. No hallucinations. Limitations: no limitations Course Vital Signs 04/03/17 04/03/17 04/03/17 13:39 13:50 14:05 Temperature 96.8 F L 97.0 F L Pulse Rate 53 L Pulse Rate [ 48 L Sitting] Pulse Rate [ 58 L 52 L Standing] Pulse Rate [ 50 L Supine Density Control Puncher] Respiratory 18 16 Rate Blood Pressure 116/63 Blood Pressure 113/61 [Right Arm Sitting] Blood Pressure 110/59 [Right Arm Standing] Blood Pressure 113/60 [Right Arm] O2 Sat by Pulse 100 98 Oximetry 04/03/17 15:04 Temperature 97.2 F L Pulse Rate 50 L Pulse Rate [ Sitting] Pulse Rate [ Standing] Pulse Rate [ Supine Density Control Puncher] Respiratory 16 Rate Blood Pressure 113/60 Blood Pressure [Right Arm Sitting] Blood Pressure [Right Arm Standing] Blood Pressure [Right Arm] O2 Sat by Pulse 98 Oximetry Medical Decision Making - Medical Decision Making EKG shows sinus bradycardia 52 bpm MD interval is 178 QRS is 90 QT interval is 452 QTC is 420. Patient's EKG shows Q waves in the inferior leads as well as inverted T waves. Patient also has inverted T waves in leads V5 and V6. No ST segment elevation or depression is noted This x-ray shows pulmonary edema. I gave the patient some Lasix and Nitropaste at this time. I admitted the patient for pulmonary edema as well as bradycardia. I spoke with Dr. Chan he agreed to admit the patient I wrote admitting orders consult to cardiology I continue the Lasix and Nitropaste on the floor. - Lab Data Result diagrams: 04/03/17 13:16 04/03/17 13:16 Lab Results 04/03/17 04/03/17 04/03/17 Range/Units 13:16 13:16 13:16 WBC 6.1 (3.8-10.6) k/uL RBC 4.50 (4.30-5.90) m/uL Hgb 14.2 (13.0-17.5) gm/dL Hct 42.4 (39.0-53.0) % MCV 94.1 (80.0-100.0) fL MCH 31.5 (25.0-35.0) pg MCHC 33.4 (31.0-37.0) g/dL RDW 14.6 (11.5-15.5) % Plt Count 121 L (150-450) k/uL Neutrophils % 70 % Lymphocytes % 20 % Monocytes % 7 % Eosinophils % 2 % Basophils % 0 % Neutrophils # 4.2 (1.3-7.7) k/uL Lymphocytes # 1.2 (1.0-4.8) k/uL Monocytes # 0.4 (0-1.0) k/uL Eosinophils # 0.1 (0-0.7) k/uL Basophils # 0.0 (0-0.2) k/uL PT (9.0-12.0) sec INR (<1.1) APTT (22.0-30.0) sec Sodium 137 (137-145) mmol/L Potassium 4.9 (3.5-5.1) mmol/L Chloride 102 (98-107) mmol/L Carbon Dioxide 25 (22-30) mmol/L Anion Gap 10 mmol/L BUN 27 H (9-20) mg/dL Creatinine 1.51 H (0.66-1.25) mg/dL Est GFR (MDRD) Af Amer 53 (>60 ml/min/1.73 sqM) Est GFR (MDRD) Non-Af 44 (>60 ml/min/1.73 sqM) Glucose 152 H (74-99) mg/dL Calcium 9.2 (8.4-10.2) mg/dL Total Bilirubin 0.9 (0.2-1.3) mg/dL AST 23 (17-59) U/L ALT 13 L (21-72) U/L Alkaline Phosphatase 89 (38-126) U/L Total Creatine Kinase 50 L (55-170) U/L CK-MB (CK-2) 2.1 (0.0-2.4) ng/mL CK-MB (CK-2) Rel Index 4.2 Troponin I 0.026 (0.000-0.034) ng/mL NT-Pro-B Natriuret Pep pg/mL Total Protein 6.6 (6.3-8.2) g/dL Albumin 3.8 (3.5-5.0) g/dL Urine Color Urine Appearance (Clear) Urine pH (5.0-8.0) Ur Specific [place] (1.001-1.035) Urine Protein (Negative) Urine Glucose (UA) (Negative) Urine Ketones (Negative) Urine Blood (Negative) Urine Nitrite (Negative) Urine Bilirubin (Negative) Urine Urobilinogen (<2.0) mg/dL Ur Leukocyte Esterase (Negative) Urine WBC (0-5) /hpf Ur Squamous Epith Cells (0-4) /hpf Urine Mucus (None) /hpf 04/03/17 04/03/17 04/03/17 Range/Units 13:16 13:16 13:16 WBC (3.8-10.6) k/uL RBC (4.30-5.90) m/uL Hgb (13.0-17.5) gm/dL Hct (39.0-53.0) % MCV (80.0-100.0) fL MCH (25.0-35.0) pg MCHC (31.0-37.0) g/dL RDW (11.5-15.5) % Plt Count (150-450) k/uL Neutrophils % % Lymphocytes % % Monocytes % % Eosinophils % % Basophils % % Neutrophils # (1.3-7.7) k/uL Lymphocytes # (1.0-4.8) k/uL Monocytes # (0-1.0) k/uL Eosinophils # (0-0.7) k/uL Basophils # (0-0.2) k/uL PT 11.0 (9.0-12.0) sec INR 1.1 (<1.1) APTT 22.3 (22.0-30.0) sec Sodium (137-145) mmol/L Potassium (3.5-5.1) mmol/L Chloride (98-107) mmol/L Carbon Dioxide (22-30) mmol/L Anion Gap mmol/L BUN (9-20) mg/dL Creatinine (0.66-1.25) mg/dL Est GFR (MDRD) Af Amer (>60 ml/min/1.73 sqM) Est GFR (MDRD) Non-Af (>60 ml/min/1.73 sqM) Glucose (74-99) mg/dL Calcium (8.4-10.2) mg/dL Total Bilirubin (0.2-1.3) mg/dL AST (17-59) U/L ALT (21-72) U/L Alkaline Phosphatase (38-126) U/L Total Creatine Kinase (55-170) U/L CK-MB (CK-2) (0.0-2.4) ng/mL CK-MB (CK-2) Rel Index Troponin I (0.000-0.034) ng/mL NT-Pro-B Natriuret Pep 2080 pg/mL Total Protein (6.3-8.2) g/dL Albumin (3.5-5.0) g/dL Urine Color Yellow Urine Appearance Clear (Clear) Urine pH 5.5 (5.0-8.0) Ur Specific [place] 1.012 (1.001-1.035) Urine Protein Trace H (Negative) Urine Glucose (UA) Negative (Negative) Urine Ketones Negative (Negative) Urine Blood Negative (Negative) Urine Nitrite Negative (Negative) Urine Bilirubin Negative (Negative) Urine Urobilinogen <2.0 (<2.0) mg/dL Ur Leukocyte Esterase Large H (Negative) Urine WBC 7 H (0-5) /hpf Ur Squamous Epith Cells <1 (0-4) /hpf Urine Mucus Rare H (None) /hpf Critical Care Time Critical Care Time: Yes Total Critical Care Time: 35 Disposition Clinical Impression: Acute pulmonary edema, Bradycardia, Generalized weakness Disposition: ADMITTED IP TO THIS HOSP Referrals: Adelita Mullen MD [Primary Care Provider] - 1-2 days Time of Disposition: 15:29
[2017-04-03 14:23] LABS: Basophils % (A) 0 %; CH 31.7; CHCM 33.9; Eosinophils # (A) 0.1 k/uL (0-0.7); Eosinophils % (A) 2 %; HCT 42.4 % (39.0-53.0); HGB 14.2 gm/dL (13.0-17.5); Luc # (Auto) 0.08; Luc % (Auto) 1; Lymphocytes # (A) 1.2 k/uL (1.0-4.8); Lymphocytes % (A) 20 %; MCH 31.5 pg (25.0-35.0); MCHC 33.4 g/dL (31.0-37.0); MCV 94.1 fL (80.0-100.0); Mean Platelet Volume 8.1; Monocytes # (A) 0.4 k/uL (0-1.0); Monocytes % (A) 7 %; Neutrophils # (A) 4.2 k/uL (1.3-7.7); Neutrophils % (A) 70 %; RDW 14.6 % (11.5-15.5); WBC 6.1 k/uL (3.8-10.6); WBC (Perox) 5.85
[2017-04-03 14:29] LABS: Appearance,Urine Clear (Clear); Bilirubin,Urine Negative (Negative); Glucose,Urine (UA) Negative (Negative); Ketones,Urine Negative (Negative); Leukocyte Esterase,Urine Large (Negative); Mucus,Urine Rare /hpf; Nitrite,Urine Negative (Negative); PH, Urine 5.5 (5.0-8.0); Particle Count 1885; Protein,Urine Trace (Negative); Specific Gravity,Urine 1.012 (1.001-1.035); Squamous Epithelial Cell,Urine <1 /hpf (0-4); UA Billing (MACRO vs. MICRO) MICRO; Urobilinogen,Urine <2.0 mg/dL (<2.0); WBC,Urine 7 /hpf (0-5)
[2017-04-03 14:35] LABS: Calcium 9.2 mg/dL (8.4-10.2); Potassium 4.9 mmol/L (3.5-5.1); Total Bilirubin 0.9 mg/dL (0.2-1.3); Total Protein 6.6 g/dL (6.3-8.2)
[2017-04-03 14:36] LABS: INR 1.1 (<1.1); Partial Thromboplastin Time 22.3 sec (22.0-30.0)
--- NOTE | 2017-04-03 14:37 | XR ---
EXAMINATION TYPE: XR chest 2V DATE OF EXAM: 04/03/2017 COMPARISON: 10/19/2016 TECHNIQUE: PA and lateral views submitted. HISTORY: Weakness FINDINGS: Diffuse coarsened interstitial pattern with right-sided consolidation and tiny bilateral effusion or pleural thickening. Epicardial lead noted with degenerative change of the spine and postsurgical condon ges. No pneumothorax. Diffuse osteopenia and arthropathy of the shoulders. IMPRESSION: 1. Correlate for pulmonary fibrosis superimposed venous congestion or interstitial pneumonitis in the differential diagnosis. Right basilar subsegmental atelectasis versus infiltrate. 2. Tiny effusion versus chronic pleural thickening.
[2017-04-03] MEDS: SODIUM CHLORIDE 0.9% 1,000 ML IV ONE ×2 (15:02→15:09)
[2017-04-03 15:10] LABS: Creatine Kinase MB 2.1 ng/mL (0.0-2.4); Troponin I 0.026 ng/mL (0.000-0.034)
[2017-04-03] MEDS ORDERED: FUROSEMIDE 10 MG/ML 2 ML VIAL IV ONE (15:27)
[2017-04-03 17:20] LABS: Glucose,Whole Blood 102 mg/dL (75-99)
[2017-04-03] MEDS ORDERED: NITROGLYCERIN SL TABS 0.4 MG TAB SUBLINGUAL PRN (18:40)
[2017-04-03 20:44] LABS: Glucose,Whole Blood 122 mg/dL (75-99)
[2017-04-03] MEDS: FUROSEMIDE 10 MG/ML 2 ML VIAL IV SCH (21:59)
[2017-04-03] MEDS: INSULIN LISPRO (humaLOG) 300 UNIT/3 ML VIAL SQ SCH (22:00)
[2017-04-03] MEDS: CARBIDOPA-LEVODOPA 25-100 MG 1 EACH TAB PO SCH (22:00)
[2017-04-03 23:09] LABS: Hemoglobin A1C 6.1 % (4.2-6.1)
[2017-04-04 06:06] LABS: Glucose,Whole Blood 139 mg/dL (75-99)
[2017-04-04] MEDS: INSULIN LISPRO (humaLOG) 300 UNIT/3 ML VIAL SQ SCH ×4 (06:41→21:40)
[2017-04-04 06:44] LABS: Calcium 9.2 mg/dL (8.4-10.2); Potassium 4.1 mmol/L (3.5-5.1)
[2017-04-04 06:49] LABS: Basophils % (A) 0 %; CH 31.9; CHCM 33.7; Eosinophils # (A) 0.2 k/uL (0-0.7); Eosinophils % (A) 2 %; HDW 2.61; HGB 13.8 gm/dL (13.0-17.5); Luc % (Auto) 1; Lymphocytes # (A) 1.5 k/uL (1.0-4.8); Lymphocytes % (A) 21 %; MCH 31.9 pg (25.0-35.0); MCHC 33.5 g/dL (31.0-37.0); MCV 95.1 fL (80.0-100.0); Mean Platelet Volume 7.3; Monocytes # (A) 0.4 k/uL (0-1.0); Monocytes % (A) 6 %; Neutrophils % (A) 70 %; RBC 4.31 m/uL (4.30-5.90); RDW 14.7 % (11.5-15.5); WBC 7.1 k/uL (3.8-10.6); WBC (Perox) 7.29
[2017-04-04] MEDS: ISOSORBIDE MONONITRATE ER 30 MG TAB.ER.24H PO SCH (10:19)
[2017-04-04] MEDS: FAMOTIDINE 20 MG TAB PO SCH (10:19)
[2017-04-04] MEDS: ASPIRIN 81 MG CHEW PO SCH (10:19)
[2017-04-04] MEDS: CALCIUM CARB-VIT D 500MG-200UN 1 EACH TAB PO SCH (10:20)
[2017-04-04] MEDS: FUROSEMIDE 10 MG/ML 2 ML VIAL IV SCH ×2 (10:20→21:39)
[2017-04-04] MEDS: metFORMIN 500 MG TAB PO SCH (10:20)
[2017-04-04] MEDS: CLOPIDOGREL 75 MG TAB PO SCH (10:20)
[2017-04-04] MEDS: CARBIDOPA-LEVODOPA 25-100 MG 1 EACH TAB PO SCH ×4 (10:21→21:40)
[2017-04-04] MEDS: MULTIVITAMINS, THERA 1 EACH TAB PO SCH (10:21)
[2017-04-04 11:28] LABS: Glucose,Whole Blood 115 mg/dL (75-99)
--- NOTE | 2017-04-04 11:40 | P.HPIM ---
History of Present Illness H&P Date: 04/04/17 Chief Complaint: Dizziness and weakness Patient is an 86-year-old male who presents to the emergency department complaining of weakness. Patient states he was on his tractor he was too weak to get off. Patient denies any headache patient denies any numbness or focal weakness. He was brought into emergency room for evaluation, he had evidence of bradycardia, he was maintained on a low dose of Metoprolol 12.5 mg bid. this was held on admission, CXR reveale evidence of pulmonary congestion, patient was admitted to telemetry floor and cardiology consultation was requested. On review of systems There is no fever or chills no cough, no headche. Patient denies any chest pain or difficulty breathing or palpitations. Patient denies any abdominal pain patient denies any recent history of nausea, vomiting or diarrhea. Patient denies any recent injury or trauma. Patient states he did not believe it was at hot outside to be dehydrated. Patient denies any dysuria hematuria urinary frequency. Patient has a past a known history of coronary artery disease and has a medical history of bypass graft surgery in 2006 Past Medical History Past Medical History: Coronary Artery Disease (CAD), Chest Pain / Angina, Diabetes Mellitus, Hyperlipidemia, Hypertension, Prostate Disorder Additional Past Medical History / Comment(s): 10-14-16 STEMI History of Any Multi-Drug Resistant Organisms: None Reported Past Surgical History: Back Surgery, Coronary Bypass/CABG, Heart Catheterization , Orthopedic Surgery Additional Past Surgical History / Comment(s): 10-14-16 HEART CATH "CLOTS REMOVED AND 3 STENTS TO SVG TO PDA,STILL NO FLOW"2006 CABG -LT INTERNAL MAMMARY ARTERY GRAFT TO LAD, SVG TO DAIG, SVG TO PDA. carpal tunnel, cataracts removed, LASER PROCEDURE FOR ENLARGED PROSTATE, HEART CATH/PTCA 1982 Past Anesthesia/Blood Transfusion Reactions: No Reported Reaction Additional Past Anesthesia/Blood Transfusion Reaction / Comment(s): PT IS JEHOVAH WITNESS-NO BLOOD PRODUCTS Smoking Status: Former smoker - Past Family History Mother History Unknown: Yes Family Medical History: Hypertension Father History Unknown: Yes Family Medical History: Hypertension Medications and Allergies Home Medications Medication Instructions Recorded Confirmed Type metFORMIN HCL [Glucophage] 500 mg PO DAILY 06/18/16 04/03/17 History Fish Oil/Dha/Epa [Fish Oil 1,200 1 cap PO DAILY 10/14/16 04/03/17 History mg Fish Oil] Isosorbide Mononitrate ER [Imdur] 30 mg PO DAILY 10/14/16 04/03/17 History Multivitamin [Men's Multi-Vitamin] 1 tab PO DAILY 10/14/16 04/03/17 History Calcium Carbonate/Vitamin D3 1 tab PO DAILY 04/03/17 04/03/17 History [Calcium 600-Vit D3 400 Caplet] Carbidopa-Levodopa 25-100 mg 1 tab PO TID 04/03/17 04/03/17 History [Sinemet 25-100] Allergies Allergy/AdvReac Type Severity Reaction Status Date / Time No Known Allergies Allergy Verified 04/03/17 13:51 Physical Exam Vitals: Vital Signs Temp Pulse Pulse Pulse Pulse Resp BP 04/04/17 04:00 96.2 F L 56 L 18 04/04/17 00:00 97.4 F L 51 L 51 L 18 04/03/17 20:00 97.6 F 53 L 53 L 53 L 16 04/03/17 16:58 62 16 04/03/17 16:25 97.2 F L 53 L 16 123/79 04/03/17 15:04 97.2 F L 50 L 16 113/60 04/03/17 14:05 97.0 F L 48 L 52 L 50 L 16 04/03/17 13:50 58 L 04/03/17 13:39 96.8 F L 53 L 18 116/63 BP BP BP Pulse Ox 04/04/17 04:00 138/74 99 04/04/17 00:00 136/67 99 04/03/17 20:00 139/71 98 04/03/17 16:58 140/74 100 04/03/17 16:25 99 04/03/17 15:04 98 04/03/17 14:05 113/61 110/59 113/60 98 04/03/17 13:50 04/03/17 13:39 100 Intake and Output 04/03/17 04/04/17 04/04/17 22:59 06:59 14:59 Intake Total 180 Output Total 900 200 Balance -900 -200 180 Intake: Oral 180 Output: Urine 900 200 Other: Voiding Method Urinal Urinal # Voids 1 1 Weight 68.039 kg 67.9 kg In general patient is alert and oriented 3 in no apparent distress HEENT head normocephalic and atraumatic Neck is supple no JVD no goiter no lymphadenopathy Chest exam reveals a few scattered crackles in both bases no wheezing Cardiac exam reveals regular heart sounds no gallops no murmurs Abdomen is soft nontender no organomegaly with normal bowel sounds Extremity exam reveals no edema no cyanosis or clubbing Results CBC & Chem 7: 04/04/17 06:16 04/04/17 06:16 Labs: Abnormal Lab Results - Last 24 Hours (Table) 04/03/17 04/03/17 04/03/17 Range/Units 13:16 13:16 13:16 Plt Count 121 L (150-450) k/uL BUN 27 H (9-20) mg/dL Creatinine 1.51 H (0.66-1.25) mg/dL Glucose 152 H (74-99) mg/dL POC Glucose (mg/dL) (75-99) mg/dL ALT 13 L (21-72) U/L Total Creatine Kinase 50 L (55-170) U/L Urine Protein (Negative) Ur Leukocyte Esterase (Negative) Urine WBC (0-5) /hpf Urine Mucus (None) /hpf 04/03/17 04/03/17 04/03/17 Range/Units 13:16 16:58 20:42 Plt Count (150-450) k/uL BUN (9-20) mg/dL Creatinine (0.66-1.25) mg/dL Glucose (74-99) mg/dL POC Glucose (mg/dL) 102 H 122 H (75-99) mg/dL ALT (21-72) U/L Total Creatine Kinase (55-170) U/L Urine Protein Trace H (Negative) Ur Leukocyte Esterase Large H (Negative) Urine WBC 7 H (0-5) /hpf Urine Mucus Rare H (None) /hpf 04/04/17 04/04/17 04/04/17 Range/Units 06:04 06:16 06:16 Plt Count 117 L (150-450) k/uL BUN 28 H (9-20) mg/dL Creatinine 1.57 H (0.66-1.25) mg/dL Glucose 135 H (74-99) mg/dL POC Glucose (mg/dL) 139 H (75-99) mg/dL ALT (21-72) U/L Total Creatine Kinase (55-170) U/L Urine Protein (Negative) Ur Leukocyte Esterase (Negative) Urine WBC (0-5) /hpf Urine Mucus (None) /hpf Microbiology - Last 24 Hours (Table) 04/03/17 13:16 Urine Culture - Preliminary Urine,Voided Assessment and Plan Plan: #1 Generalized weakness, could be related to amador cardia #2 Bradycardia, Metoprolol on hold, cardiology consult requested. #3 Pulmonary congestion, possible acute congestive heart failure exacerbation, check BNP, check Echocardiogram #4 underlying history of CAD with coronary artery bypass graft surgery in 2006 #5 Chronic kidney disease, stable
--- NOTE | 2017-04-04 12:14 | P.CRDCN ---
History of Present Illness Consult date: 04/04/17 History of present illness: This is a 86-year-old gentleman with history of ischemic heart disease and previous bypass surgery and also recent inferior wall myocardial infarction. At that time patient was found to have total occlusion of the graft to the RCA. Patient has been on medical therapy since then. Now patient came to the hospital with episodes of weakness and numbness. Apparently he was in on his tractor mowing the lawn and felt very weak and could not get into the house. He has to call his neighbors to help him into the house. Subsequently laid down for a while and tried to walk to the kitchen and the apparently felt very weak again. His maid came home and found him very weak and unable to communicate very well with speech difficulties and subsequently patient was brought to the hospital. Patient is found to be bradycardic. His beta blockers have. He is feeling better. He was recently diagnosed to have Parkinson's disease and was started on levo dopa. It appears that patient may be reacting to the medication. Will have a neurology consult. We'll hold beta sandra at this time. Further recommendations depend upon clinical course. Patient denied any chest pain or shortness of breath Review of Systems As per the chart Past Medical History Past Medical History: Coronary Artery Disease (CAD), Chest Pain / Angina, Diabetes Mellitus, Hyperlipidemia, Hypertension, Prostate Disorder Additional Past Medical History / Comment(s): 10-14-16 STEMI History of Any Multi-Drug Resistant Organisms: None Reported Past Surgical History: Back Surgery, Coronary Bypass/CABG, Heart Catheterization , Orthopedic Surgery Additional Past Surgical History / Comment(s): 10-14-16 HEART CATH "CLOTS REMOVED AND 3 STENTS TO SVG TO PDA,STILL NO FLOW"2006 CABG -LT INTERNAL MAMMARY ARTERY GRAFT TO LAD, SVG TO DAIG, SVG TO PDA. carpal tunnel, cataracts removed, LASER PROCEDURE FOR ENLARGED PROSTATE, HEART CATH/PTCA 1982 Past Anesthesia/Blood Transfusion Reactions: No Reported Reaction Additional Past Anesthesia/Blood Transfusion Reaction / Comment(s): PT IS JEHOVAH WITNESS-NO BLOOD PRODUCTS Smoking Status: Former smoker - Past Family History Mother History Unknown: Yes Family Medical History: Hypertension Father History Unknown: Yes Family Medical History: Hypertension Medications and Allergies Home Medications Medication Instructions Recorded Confirmed Type metFORMIN HCL [Glucophage] 500 mg PO DAILY 06/18/16 04/03/17 History Fish Oil/Dha/Epa [Fish Oil 1,200 1 cap PO DAILY 10/14/16 04/03/17 History mg Fish Oil] Isosorbide Mononitrate ER [Imdur] 30 mg PO DAILY 10/14/16 04/03/17 History Multivitamin [Men's Multi-Vitamin] 1 tab PO DAILY 10/14/16 04/03/17 History Calcium Carbonate/Vitamin D3 1 tab PO DAILY 04/03/17 04/03/17 History [Calcium 600-Vit D3 400 Caplet] Carbidopa-Levodopa 25-100 mg 1 tab PO TID 04/03/17 04/03/17 History [Sinemet 25-100] Allergies Allergy/AdvReac Type Severity Reaction Status Date / Time No Known Allergies Allergy Verified 04/03/17 13:51 Physical Exam Vitals: Vital Signs Temp Pulse Pulse Pulse Pulse Resp BP 04/04/17 09:20 97.2 F L 54 L 54 L 54 L 16 04/04/17 04:00 96.2 F L 56 L 18 04/04/17 00:00 97.4 F L 51 L 51 L 18 04/03/17 20:00 97.6 F 53 L 53 L 53 L 16 04/03/17 16:58 62 16 04/03/17 16:25 97.2 F L 53 L 16 123/79 04/03/17 15:04 97.2 F L 50 L 16 113/60 04/03/17 14:05 97.0 F L 48 L 52 L 50 L 16 04/03/17 13:50 58 L 04/03/17 13:39 96.8 F L 53 L 18 116/63 BP BP BP BP Pulse Ox 04/04/17 09:20 167/74 96 04/04/17 04:00 138/74 99 04/04/17 00:00 136/67 99 04/03/17 20:00 139/71 98 04/03/17 16:58 140/74 100 04/03/17 16:25 99 04/03/17 15:04 98 04/03/17 14:05 113/61 110/59 113/60 98 04/03/17 13:50 04/03/17 13:39 100 Intake and Output 04/03/17 04/04/17 04/04/17 22:59 06:59 14:59 Intake Total 180 Output Total 900 200 Balance -900 -200 180 Intake: Oral 180 Output: Urine 900 200 Other: Voiding Method Urinal Urinal Urinal # Voids 1 1 Weight 68.039 kg 67.9 kg GENERAL EXAM: Patient is alert and oriented and doesn't appear to be in any acute distress. He appears extremely weak HEENT: Normocephalic. Normal reaction of pupils, equal size, normal range of extraocular motion. No erythema or exudates in the throat. NECK: No masses, no nuchal rigidity. CHEST: No chest wall deformity. LUNGS: Equal air entry with no crackles or wheeze. HEART: S1 and S2 normal with no audible mumurs or gallops. Regular rhythm, femorals equal on both sides.. ABDOMEN: No hepatosplenomegaly, normal bowel sounds, no guarding or rigidity. SKIN: No rashes CENTRAL NERVOUS SYSTEM: No focal deficits. EXTREMITIES: No cyanosis, clubbing or edema. Results 04/04/17 06:16 04/04/17 06:16 Cardiac Enzymes 04/03/17 04/03/17 Range/Units 13:16 13:16 AST 23 (17-59) U/L CK-MB (CK-2) 2.1 (0.0-2.4) ng/mL Troponin I 0.026 (0.000-0.034) ng/mL Coagulation 04/03/17 Range/Units 13:16 PT 11.0 (9.0-12.0) sec APTT 22.3 (22.0-30.0) sec CBC 04/03/17 04/04/17 Range/Units 13:16 06:16 WBC 6.1 7.1 (3.8-10.6) k/uL RBC 4.50 4.31 (4.30-5.90) m/uL Hgb 14.2 13.8 (13.0-17.5) gm/dL Hct 42.4 41.0 (39.0-53.0) % Plt Count 121 L 117 L (150-450) k/uL Comprehensive Metabolic Panel 04/03/17 04/04/17 Range/Units 13:16 06:16 Sodium 137 139 (137-145) mmol/L Potassium 4.9 4.1 (3.5-5.1) mmol/L Chloride 102 102 (98-107) mmol/L Carbon Dioxide 25 25 (22-30) mmol/L BUN 27 H 28 H (9-20) mg/dL Creatinine 1.51 H 1.57 H (0.66-1.25) mg/dL Glucose 152 H 135 H (74-99) mg/dL Calcium 9.2 9.2 (8.4-10.2) mg/dL AST 23 (17-59) U/L ALT 13 L (21-72) U/L Alkaline Phosphatase 89 (38-126) U/L Total Protein 6.6 (6.3-8.2) g/dL Albumin 3.8 (3.5-5.0) g/dL Current Medications Generic Name Dose Route Start Last Admin Trade Name Freq PRN Reason Stop Dose Admin Aspirin 81 mg 04/04/17 09:00 04/04/17 10:19 Aspirin PO 81 mg DAILY CARLOS Administration Calcium Carbonate 1 each 04/04/17 12:00 04/04/17 10:20 Oscal 500+D PO 1 each DAILY@1200 CARLOS Administration Carbidopa/Levodopa 1 each 04/03/17 22:00 04/04/17 10:21 Sinemet 25-100 PO 1 each TID CARLOS Administration Clopidogrel Bisulfate 75 mg 04/04/17 09:00 04/04/17 10:20 Plavix PO 75 mg DAILY CARLOS Administration Famotidine 20 mg 04/04/17 09:00 04/04/17 10:19 Pepcid PO 20 mg DAILY CARLOS Administration Furosemide 20 mg 04/03/17 21:00 04/04/17 10:20 Lasix IV 20 mg Q12H CARLOS Administration Insulin Human Lispro 0 unit 04/03/17 21:00 04/04/17 06:41 Humalog SQ 1 unit ACHS CARLOS Administration Protocol Isosorbide Mononitrate 30 mg 04/04/17 09:00 04/04/17 10:19 Imdur PO 30 mg DAILY CARLOS Administration Metformin HCl 500 mg 04/04/17 09:00 04/04/17 10:20 Glucophage PO 500 mg DAILY CARLOS Administration Multivitamins 1 each 04/04/17 12:00 04/04/17 10:21 Theragran PO 1 each DAILY@1200 CARLOS Administration Nitroglycerin 0.4 mg 04/03/17 18:40 Nitrostat SUBLINGUAL Q5M PRN Chest Pain Intake and Output 04/03/17 04/04/17 04/04/17 22:59 06:59 14:59 Intake Total 180 Output Total 900 200 Balance -900 -200 180 Intake: Oral 180 Output: Urine 900 200 Other: Voiding Method Urinal Urinal Urinal # Voids 1 1 Weight 68.039 kg 67.9 kg 04/04/17 06:16 04/04/17 06:16 EKG Interpretations (text) Sinus bradycardia Assessment and Plan (1) Bradycardia Status: Acute (2) Generalized weakness Status: Acute (3) Atypical chest pain Status: Acute (4) HTN (hypertension) Status: Acute (5) Hx of CABG Status: Acute (6) Parkinsonism Status: Acute Plan: We'll hold beta sandra. Monitor his blood pressure and pulse. Check for any postural changes. Get a neurology follow-up regarding management of parkinsonism.
--- NOTE | 2017-04-04 13:25 | XR ---
EXAMINATION TYPE: XR chest 2V DATE OF EXAM: 04/04/2017 COMPARISON: 04/03/2017 HISTORY: Weakness TECHNIQUE: Frontal and lateral views of the chest are obtained. FINDINGS: There is coarsening of interstitial markings. Heart is enlarged. There are sternal wires. There are chest leads. There is slight blunting of costophrenic angles. IMPRESSION: Pulmonary fibrosis. There is probably mild heart failure that is significantly improved compared to yesterday. Small pleural effusions.
--- NOTE | 2017-04-04 13:34 | US ---
EXAMINATION TYPE: US carotid duplex BILAT DATE OF EXAM: 04/04/2017 COMPARISON: NONE CLINICAL HISTORY: weakness, dizziness. Weakness EXAM MEASUREMENTS: RIGHT: Peak Systolic Velocity (PSV) cm/sec ----- Right CCA: 40.3 ----- Right ICA: 52.7 ----- Right ECA: 90.4 ICA/CCA ratio: 1.3 RIGHT: End Diastole cm/sec ----- Right CCA: 5.0 ----- Right ICA: 14.8 ----- Right ECA: 8.7 LEFT: Peak Systolic Velocity (PSV) cm/sec ----- Left CCA: 53.9 ----- Left ICA: 69.3 ----- Left ECA: 61.4 ICA/CCA ratio: 1.3 LEFT: End Diastole cm/sec ----- Left CCA: 10.2 ----- Left ICA: 16.1 ----- Left ECA: 6.3 VERTEBRALS (direction of flow): Right Vertebral: Antegrade Left Vertebral: Antegrade Bilateral intimal thickening, plaque bilateral bulb, no elevated velocities, no significant stenosis. IMPRESSION: There is antegrade flow in the vertebral arteries. The images and measurements suggest l ess than 10% stenosis in both internal carotid arteries. Criteria for Assigning % of Stenosis / Diameter reduction (Estimation based on the indirect measurements of the internal carotid artery velocities (ICA PSV). 1. Normal (no stenosis)=ICA PSV < 125 cm/s: ratio < 2.0: ICA EDV<40 cm/s. 2. Less than 50% stenosis=ICA PSV < 125 cm/s: ratio < 2.0: ICA EDV<40 cm/s. 3. 50 to 69% stenosis=ICA PSV of 125 to 230 cm/s: ration 2.0 ? 4.0: ICA EDV 40-100 cm/s. 4. Greater than 70% stenosis to near occlusion= ICA PSV > 230 cm/s: ratio > 4.0: ICA EDV > 100 cm/s. 5. Near occlusion= ICA PSV velocities may be low or undetectable: variable ratio and ICA EDV. 6. Total occlusion=unable to detect flow.
[2017-04-04 16:28] LABS: Glucose,Whole Blood 125 mg/dL (75-99)
[2017-04-04 20:58] LABS: Glucose,Whole Blood 119 mg/dL (75-99)
[2017-04-05 05:46] LABS: Glucose,Whole Blood 122 mg/dL (75-99)
[2017-04-05 05:52] LABS: Basophils % (A) 0 %; CH 31.5; CHCM 33.1; Eosinophils # (A) 0.2 k/uL (0-0.7); Eosinophils % (A) 3 %; HCT 42.5 % (39.0-53.0); HGB 14.3 gm/dL (13.0-17.5); Luc # (Auto) 0.14; Luc % (Auto) 2; Lymphocytes # (A) 1.3 k/uL (1.0-4.8); Lymphocytes % (A) 20 %; MCH 32.1 pg (25.0-35.0); MCHC 33.6 g/dL (31.0-37.0); MCV 95.7 fL (80.0-100.0); Mean Platelet Volume 7.3; Monocytes # (A) 0.5 k/uL (0-1.0); Monocytes % (A) 7 %; Neutrophils # (A) 4.6 k/uL (1.3-7.7); Neutrophils % (A) 68 %; RBC 4.44 m/uL (4.30-5.90); RDW 14.7 % (11.5-15.5); WBC 6.7 k/uL (3.8-10.6); WBC (Perox) 6.89
[2017-04-05 06:01] LABS: Calcium 9.5 mg/dL (8.4-10.2); Potassium 4.1 mmol/L (3.5-5.1); Total Bilirubin 0.8 mg/dL (0.2-1.3); Total Protein 6.9 g/dL (6.3-8.2)
[2017-04-05] MEDS: INSULIN LISPRO (humaLOG) 300 UNIT/3 ML VIAL SQ SCH ×4 (08:54→21:49)
[2017-04-05] MEDS: ASPIRIN 81 MG CHEW PO SCH (08:55)
[2017-04-05] MEDS: FAMOTIDINE 20 MG TAB PO SCH (08:55)
[2017-04-05] MEDS: ISOSORBIDE MONONITRATE ER 30 MG TAB.ER.24H PO SCH (08:55)
[2017-04-05] MEDS: FUROSEMIDE 10 MG/ML 2 ML VIAL IV SCH (08:55)
[2017-04-05] MEDS: CLOPIDOGREL 75 MG TAB PO SCH (08:55)
[2017-04-05] MEDS: CALCIUM CARB-VIT D 500MG-200UN 1 EACH TAB PO SCH (08:56)
[2017-04-05] MEDS: metFORMIN 500 MG TAB PO SCH (08:56)
[2017-04-05] MEDS: MULTIVITAMINS, THERA 1 EACH TAB PO SCH (08:56)
--- NOTE | 2017-04-05 09:54 | ECHOF ---
Referral Reason:weakness, cad MEASUREMENTS -------- HEIGHT: 175.3 cm WEIGHT: 68.0 kg BP: 147/79 IVSd: 0.9 cm (0.6 - 1.1) LVIDd: 4.9 cm (3.9 - 5.3) LVPWd: 1.1 cm (0.6 - 1.1) IVSs: 1.2 cm LVIDs: 3.8 cm LVPWs: 1.1 cm Ao Diam: 3.5 cm (2.0 - 3.7) AV Cusp: 2.0 cm (1.5 - 2.6) LA Diam: 3.2 cm (2.7 - 3.8) MV EXCURSION: 17.007 mm (> 18.000) MV EF SLOPE: 36 mm/s (70 - 150) EPSS: 2.5 cm MV E Natan: 0.30 m/s MV DecT: 349 ms MV A Natan: 0.57 m/s MV E/A Ratio: 0.53 AV maxP.14 mmHg AV meanP.13 mmHg AR PHT: 1287 ms RAP: 5.00 mmHg RVSP: 12.42 mmHg FINDINGS -------- Sinus rhythm. This was a technically good study. Overall left ventricular systolic function is mild-moderately impaired with, an EF between 40 - 45 %. Inferiorlateral Hypokinesis The right ventricle is normal in size and function. The left atrium is normal in size. The right atrium is normal in size. Aortic valve is trileaflet and is mildly thickened. There is mild aortic regurgitation. There is mild aortic stenosis present. The mitral valve leaflets are mildly thickened. Mild mitral regurgitation is present. Mild tricuspid regurgitation present. The right ventricular systolic pressure, as measured by Doppler, is 12.42mmHg. Pulmonic valve appears structurally normal. The aortic root size is normal. The pericardium is normal. CONCLUSIONS -------- 1. Sinus rhythm. 2. There is mild aortic stenosis present. 3. The mitral valve leaflets are mildly thickened. 4. Mild mitral regurgitation is present. 5. Mild tricuspid regurgitation present. 6. The right ventricular systolic pressure, as measured by Doppler, is 12.42mmHg. 7. Pulmonic valve appears structurally normal. 8. The aortic root size is normal. 9. The pericardium is normal. 10. This was a technically good study. 11. Overall left ventricular systolic function is mild-moderately impaired with, an EF between 40 - 45 %. 12. Inferiorlateral Hypokinesis 13. The right ventricle is normal in size and function. 14. The left atrium is normal in size. 15. The right atrium is normal in size. 16. Aortic valve is trileaflet and is mildly thickened. 17. There is mild aortic regurgitation. LITHOGRAPHER HELPER: Vi Leslie RDCS
[2017-04-05] MEDS ORDERED: Magnesium Replacement Protocol 1 EACH MISC MISCELLANE PRN (10:13)
[2017-04-05] MEDS ORDERED: Potassium Replacement Protocol 1 EACH MISC MISCELLANE PRN (10:13)
[2017-04-05 12:09] LABS: Glucose,Whole Blood 149 mg/dL (75-99)
--- NOTE | 2017-04-05 13:36 | P.PN ---
Subjective patient is doing well today. He denies any dizziness or lightheadedness. Heart rate averaging in the 60s since beta sandra was discontinued. No issues overnight. Patient is complaining that he was unable to get good quality of sleep. Objective - Vital Signs Vital signs: Vital Signs Temp 96.8 F L 04/05/17 11:50 Pulse 66 04/05/17 11:50 Resp 18 04/05/17 11:50 BP 104/66 04/05/17 11:50 Pulse Ox 96 04/05/17 11:50 Intake & Output 04/04/17 04/05/17 04/05/17 18:59 06:59 18:59 Intake Total 1160 100 Output Total 800 300 Balance 1160 -800 -200 Weight 68.1 kg 68.1 kg Intake: Oral 1160 100 Output: Urine 800 300 Other: Voiding Method Urinal Urinal Urinal # Voids 500 1 - Exam General: The patient is awake and alert, in no distress Eye: there is normal conjunctiva bilaterally. Neck: The neck is supple, there is no JVD. Cardiovascular: Normal S1-S2, no S3-S4, no murmurs. Respiratory: Lungs clear to auscultation bilaterally Gastrointestinal: Abdomen is soft, nontender Musculoskeletal: There is no pedal edema. Neurological:. Speech is normal. Skin: Skin is warm and dry - Labs CBC & Chem 7: 04/05/17 05:26 04/05/17 05:26 Labs: Abnormal Lab Results - Last 24 Hours (Table) 04/04/17 04/04/17 04/05/17 Range/Units 16:25 20:56 05:26 Plt Count 126 L (150-450) k/uL BUN (9-20) mg/dL Creatinine (0.66-1.25) mg/dL Glucose (74-99) mg/dL POC Glucose (mg/dL) 125 H 119 H (75-99) mg/dL ALT (21-72) U/L 04/05/17 04/05/17 04/05/17 Range/Units 05:26 05:45 11:49 Plt Count (150-450) k/uL BUN 38 H (9-20) mg/dL Creatinine 1.89 H (0.66-1.25) mg/dL Glucose 132 H (74-99) mg/dL POC Glucose (mg/dL) 122 H 149 H (75-99) mg/dL ALT 11 L (21-72) U/L Microbiology - Last 24 Hours (Table) 04/03/17 13:16 Urine Culture - Final Urine,Voided Assessment and Plan Plan: 1. Symptomatic bradycardia: Resolved after discontinuation of beta blockers. I would check thyroid function test. Continue telemetry monitoring. 2. Acute on chronic kidney disease, I would discontinue IV Lasix. Encouraged oral hydration. Repeat lab work in the morning. 3. Urinary tract infection, I would start patient on IV ceftriaxone awaiting urine culture 4. 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 Chronic ischemic cardiomyopathy with systolic heart failure and ejection fraction of 40%: Now compensated with no evidence of exacerbation 6. Recently diagnosed Parkinson's disease: Plan to follow up with neurology as an outpatient 7. Essential hypertension: Blood pressure well-controlled Continue current regimen otherwise. Repeat lab work in the morning. Telemetry monitoring. Anticipate discharge home within the next day or 2.
[2017-04-05 14:12] VITALS: BMI 22.1
--- NOTE | 2017-04-05 14:48 | P.PN ---
Subjective Principal diagnosis: Weakness This is an 86-year-old gentleman with known history of artery disease with prior bypass surgery as well as recent myocardial infarction. Straight diabetes, hypertension, hyperlipidemia. He presented to the hospital with symptoms of weakness. On presentation here he was noted to be somewhat bradycardic with a heart rate in the low 50s. Beta blockers were placed on hold. Patient does have history of Parkinson's as well as. Heart rate today is in the 50s. Echocardiogram with Doppler study was performed which revealed an ejection fraction of 40-45%. Patient was also found to be in some mild congestive cardiac failure and was diuresed on IV Lasix. We will check his creatinine in the morning, if stable we will add by mouth Lasix as well as an BERNIE inhibitor. We will also check a TSH level. Objective - Vital Signs Vital signs: Vital Signs Temp 96.8 F L 04/05/17 11:50 Pulse 66 04/05/17 11:50 Resp 18 04/05/17 11:50 BP 104/66 04/05/17 11:50 Pulse Ox 96 04/05/17 11:50 Intake & Output 04/04/17 04/05/17 04/05/17 18:59 06:59 18:59 Intake Total 1160 100 Output Total 800 300 Balance 1160 -800 -200 Weight 68.1 kg 68.1 kg 68.1 kg Intake: Oral 1160 100 Output: Urine 800 300 Other: Voiding Method Urinal Urinal Urinal # Voids 500 1 - Exam PHYSICAL EXAMINATION: HEENT: Head is atraumatic, normocephalic. Pupils equal, round. Neck is supple. There is no elevated jugular venous pressure. HEART EXAMINATION: Heart S1, S2 normal. No murmur or gallop heard. CHEST EXAMINATION: Lungs are clear to auscultation and precussion. No chest wall tenderness is noted on palpation or with deep breathing. ABDOMEN: Soft, nontender. Bowel sounds are heard. No organomegaly noted. EXTREMITIES: 2+ peripheral pulses with no evidence of peripheral edema and no calf tenderness noted]. NEUROLOGIC [patient is awake, alert and oriented -3.] . - Labs CBC & Chem 7: 04/05/17 05:26 04/05/17 05:26 Labs: Abnormal Lab Results - Last 24 Hours (Table) 04/04/17 04/04/17 04/05/17 Range/Units 16:25 20:56 05:26 Plt Count 126 L (150-450) k/uL BUN (9-20) mg/dL Creatinine (0.66-1.25) mg/dL Glucose (74-99) mg/dL POC Glucose (mg/dL) 125 H 119 H (75-99) mg/dL ALT (21-72) U/L 04/05/17 04/05/17 04/05/17 Range/Units 05:26 05:45 11:49 Plt Count (150-450) k/uL BUN 38 H (9-20) mg/dL Creatinine 1.89 H (0.66-1.25) mg/dL Glucose 132 H (74-99) mg/dL POC Glucose (mg/dL) 122 H 149 H (75-99) mg/dL ALT 11 L (21-72) U/L Microbiology - Last 24 Hours (Table) 04/03/17 13:16 Urine Culture - Final Urine,Voided Assessment and Plan (1) Parkinson disease Status: Acute (2) Bradycardia Status: Acute (3) Generalized weakness Status: Acute (4) Atypical chest pain Status: Acute (5) CKD (chronic kidney disease) Status: Acute (6) Hx of CABG Status: Acute (7) Hyperlipemia Status: Acute Plan: Cardiology's perspective, we will check lytes BUN and creatinine in the morning. If stable we will add oral Lasix as well as an BERNIE inhibitor. We will also check free T4 and TSH and continue to hold beta sandra. DNP note has been reviewed, I agree with a documented findings and plan of care. Patient was seen and examined.
[2017-04-05 16:52] LABS: Glucose,Whole Blood 121 mg/dL (75-99)
[2017-04-05] MEDS: CARBIDOPA-LEVODOPA 25-100 MG 1 EACH TAB PO SCH ×2 (17:40→21:50)
[2017-04-05 21:06] LABS: Glucose,Whole Blood 138 mg/dL (75-99)
[2017-04-05] MEDS: HEPARIN SODIUM,PORCINE 5,000 UNIT/ML 1 ML VIAL SQ SCH (21:50)
[2017-04-06 06:20] LABS: Glucose,Whole Blood 137 mg/dL (75-99)
[2017-04-06 06:37] LABS: Basophils % (A) 0 %; CH 31.8; CHCM 33.6; Eosinophils # (A) 0.2 k/uL (0-0.7); Eosinophils % (A) 3 %; HCT 45.3 % (39.0-53.0); HGB 15.2 gm/dL (13.0-17.5); Luc # (Auto) 0.14; Luc % (Auto) 2; Lymphocytes # (A) 1.4 k/uL (1.0-4.8); Lymphocytes % (A) 18 %; MCH 31.9 pg (25.0-35.0); MCHC 33.5 g/dL (31.0-37.0); MCV 95.1 fL (80.0-100.0); Mean Platelet Volume 7.5; Monocytes # (A) 0.5 k/uL (0-1.0); Monocytes % (A) 7 %; Neutrophils # (A) 5.4 k/uL (1.3-7.7); Neutrophils % (A) 70 %; RBC 4.76 m/uL (4.30-5.90); RDW 14.7 % (11.5-15.5); WBC 7.7 k/uL (3.8-10.6); WBC (Perox) 7.39
[2017-04-06 06:47] LABS: Calcium 9.6 mg/dL (8.4-10.2); Magnesium 1.9 mg/dL (1.6-2.3); Potassium 4.6 mmol/L (3.5-5.1)
[2017-04-06] MEDS: INSULIN LISPRO (humaLOG) 300 UNIT/3 ML VIAL SQ SCH ×2 (06:52→12:06)
[2017-04-06 08:44] VITALS: RESP 16
[2017-04-06] MEDS: MULTIVITAMINS, THERA 1 EACH TAB PO SCH (08:47)
[2017-04-06] MEDS: ISOSORBIDE MONONITRATE ER 30 MG TAB.ER.24H PO SCH (08:47)
[2017-04-06] MEDS: ASPIRIN 81 MG CHEW PO SCH (08:47)
[2017-04-06] MEDS: CLOPIDOGREL 75 MG TAB PO SCH (08:47)
[2017-04-06] MEDS: FAMOTIDINE 20 MG TAB PO SCH (08:47)
[2017-04-06] MEDS: HEPARIN SODIUM,PORCINE 5,000 UNIT/ML 1 ML VIAL SQ SCH (08:47)
[2017-04-06] MEDS: CARBIDOPA-LEVODOPA 25-100 MG 1 EACH TAB PO SCH ×2 (08:47→15:56)
[2017-04-06] MEDS: CALCIUM CARB-VIT D 500MG-200UN 1 EACH TAB PO SCH (08:47)
[2017-04-06] MEDS: metFORMIN 500 MG TAB PO SCH (08:47)
[2017-04-06 11:27] VITALS: BP 116/62; TEMP 96.6
[2017-04-06 11:30] VITALS: PULSE 60
--- NOTE | 2017-04-06 11:37 | P.DS ---
Providers Date of admission: 04/03/17 15:30 Expected date of discharge: 04/06/17 Attending physician: Jayson Chan Consults: 04/03/17 19:42 Consult Physician Routine Consulting Provider: Yevgeniy Newman Consult Reason/Comments: chf Do you want consulting provider notified?: Yes Primary care physician: [facility] Course: 1. Symptomatic bradycardia: Resolved after discontinuation of beta blockers. Thyroid function tests checked and normal. Heart rate improved to the 60s and 70s. 2. Acute on chronic kidney disease: metformin was discontinued.encouraged oral hydration. Repeat lab work in the office in the next 3-5 days. 3. Urinary tract infection, urine culture showed no growth today. Will finish short course of Keflex. 4. 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 Chronic ischemic cardiomyopathy with systolic heart failure and ejection fraction of 40%: Now compensated with no evidence of exacerbation 6. Recently diagnosed Parkinson's disease: Plan to follow up with neurology as an outpatient 7. Essential hypertension: Blood pressure well-controlled Patient is a 86-year-old gentleman with past medical history noted above who presented to the hospital with generalized weakness and was found to be bradycardic. Beta sandra was discontinued. His overall condition improved significantly throughout his hospital stay. He was treated for the above- mentioned medical problems. He will follow-up with me in the office within the next 3 days. Patient Condition at Discharge: Fair Plan - Discharge Summary New Discharge Prescriptions: New Cephalexin [Keflex] 250 mg PO Q12HR #10 capsule glipiZIDE XL [Glucotrol XL] 5 mg PO DAILY #30 tab Continue Nitroglycerin Sl Tabs [Nitrostat] 0.4 mg SUBLINGUAL Q5M PRN #25 tab PRN Reason: Chest Pain Multivitamin [Men's Multi-Vitamin] 1 tab PO DAILY Fish Oil/Dha/Epa [Fish Oil 1,200 mg Fish Oil] 1 cap PO DAILY Isosorbide Mononitrate ER [Imdur] 30 mg PO DAILY Aspirin 81 mg PO DAILY chew Clopidogrel [Plavix] 75 mg PO DAILY tab Famotidine [Pepcid] 20 mg PO DAILY tab Calcium Carbonate/Vitamin D3 [Calcium 600-Vit D3 400 Caplet] 1 tab PO DAILY Carbidopa-Levodopa 25-100 mg [Sinemet 25-100 mg] 1 tab PO TID Discontinued metFORMIN HCL [Glucophage] 500 mg PO DAILY Metoprolol Tartrate [Lopressor] 12.5 mg PO BID tab Discharge Medication List Nitroglycerin Sl Tabs [Nitrostat] 0.4 mg SUBLINGUAL Q5M PRN #25 tab 06/19/16 [Rx ] Fish Oil/Dha/Epa [Fish Oil 1,200 mg Fish Oil] 1 cap PO DAILY 10/14/16 [History] Isosorbide Mononitrate ER [Imdur] 30 mg PO DAILY 10/14/16 [History] Multivitamin [Men's Multi-Vitamin] 1 tab PO DAILY 10/14/16 [History] Aspirin 81 mg PO DAILY chew 10/19/16 [Rx] Clopidogrel [Plavix] 75 mg PO DAILY tab 10/19/16 [Rx] Famotidine [Pepcid] 20 mg PO DAILY tab 10/19/16 [Rx] Calcium Carbonate/Vitamin D3 [Calcium 600-Vit D3 400 Caplet] 1 tab PO DAILY 12/16 [History] Carbidopa-Levodopa 25-100 mg [Sinemet 25-100 mg] 1 tab PO TID 04/03/17 [History] Cephalexin [Keflex] 250 mg PO Q12HR #10 capsule 04/06/17 [Rx] glipiZIDE XL [Glucotrol XL] 5 mg PO DAILY #30 tab 04/06/17 [Rx] Follow up Appointment(s)/Referral(s): [facility], [NON-STAFF] - 1 Week Adelita Mullen MD [Primary Care Provider] - 3 Days Discharge Disposition: HOME WITH HOME HEALTH SERVICES
[2017-04-06 11:43] LABS: Glucose,Whole Blood 211 mg/dL (75-99)
--- NOTE | 2017-04-06 14:45 | P.PN ---
Subjective Principal diagnosis: Weakness This is an 86-year-old gentleman with known history of artery disease with prior bypass surgery as well as recent myocardial infarction. Straight diabetes, hypertension, hyperlipidemia. He presented to the hospital with symptoms of weakness. On presentation here he was noted to be somewhat bradycardic with a heart rate in the low 50s. Beta blockers are still on hold. Patient does have history of Parkinson's as well as. Heart rate today is in the 50s. Echocardiogram with Doppler study was performed which revealed an ejection fraction of 40-45%. Patient was also found to be in some mild congestive cardiac failure and was diuresed on IV Lasix. Creatinine remains 1.7 today. We'll put the patient on Lasix 20 mg by mouth daily. Objective - Vital Signs Vital signs: Vital Signs Temp 96.6 F L 04/06/17 11:26 Pulse 60 04/06/17 11:29 Resp 16 04/06/17 11:29 BP 116/62 04/06/17 11:26 Pulse Ox 97 04/06/17 11:26 Intake & Output 04/05/17 04/06/17 04/06/17 18:59 06:59 18:59 Intake Total 630 208 Output Total 700 300 200 Balance -70 -300 8 Weight 68.1 kg 137 kg Intake: Oral 630 208 Output: Urine 700 300 200 Other: Voiding Method Urinal Urinal Urinal # Voids 1 1 - Exam PHYSICAL EXAMINATION: HEENT: Head is atraumatic, normocephalic. Pupils equal, round. Neck is supple. There is no elevated jugular venous pressure. HEART EXAMINATION: Heart S1, S2 normal. No murmur or gallop heard. CHEST EXAMINATION: Lungs are clear to auscultation and precussion. No chest wall tenderness is noted on palpation or with deep breathing. ABDOMEN: Soft, nontender. Bowel sounds are heard. No organomegaly noted. EXTREMITIES: 2+ peripheral pulses with no evidence of peripheral edema and no calf tenderness noted]. NEUROLOGIC [patient is awake, alert and oriented -3.] . - Labs CBC & Chem 7: 04/06/17 05:59 04/06/17 05:59 Labs: Abnormal Lab Results - Last 24 Hours (Table) 04/05/17 04/05/17 04/06/17 Range/Units 16:51 21:01 05:59 Plt Count 135 L (150-450) k/uL BUN (9-20) mg/dL Creatinine (0.66-1.25) mg/dL Glucose (74-99) mg/dL POC Glucose (mg/dL) 121 H 138 H (75-99) mg/dL 04/06/17 04/06/17 04/06/17 Range/Units 05:59 06:15 11:38 Plt Count (150-450) k/uL BUN 42 H (9-20) mg/dL Creatinine 1.70 H (0.66-1.25) mg/dL Glucose 116 H (74-99) mg/dL POC Glucose (mg/dL) 137 H 211 H (75-99) mg/dL Assessment and Plan (1) Parkinson disease Status: Acute (2) Bradycardia Status: Acute (3) Generalized weakness Status: Acute (4) Atypical chest pain Status: Acute (5) CKD (chronic kidney disease) Status: Acute (6) Hx of CABG Status: Acute (7) Hyperlipemia Status: Acute Plan: Cardiology's perspective, he may be able to be discharged home today. A follow- up appointment will be made in the office post discharge. We will add Lasix 20 mg one tablet by mouth daily to his medication regime. DNP note has been reviewed, I agree with a documented findings and plan of care. Patient was seen and examined.
[2017-04-06] MEDS ORDERED: FUROSEMIDE 20 MG TAB PO SCH (15:00)
== END 2017-04-06 16:49 | disposition home health service (06) | DRG 291 ==
LOC: EC 13:29 → 6SEL 15:30
PROVIDERS: ADMIT Internal Medicine; ATTEND Internal Medicine
DX: I13.0 Hypertensive heart and chronic kidney disease with heart failure and stage 1 through stage 4 chronic kidney disease, or unspecified chronic kidney disease (principal); I50.23 Acute on chronic systolic (congestive) heart failure; N17.9 Acute kidney failure, unspecified; E11.22 Type 2 diabetes mellitus with diabetic chronic kidney disease; G20 Parkinson's disease; I25.810 Atherosclerosis of coronary artery bypass graft(s) without angina pectoris; N39.0 Urinary tract infection, site not specified; R00.1 Bradycardia, unspecified; I25.5 Ischemic cardiomyopathy; R07.89 Other chest pain; R20.0 Anesthesia of skin; N40.0 Benign prostatic hyperplasia without lower urinary tract symptoms; N18.9 Chronic kidney disease, unspecified; R53.1 Weakness; E78.5 Hyperlipidemia, unspecified; I25.2 Old myocardial infarction; Z95.1 Presence of aortocoronary bypass graft; Z82.49 Family history of ischemic heart disease and other diseases of the circulatory system; Z79.84 Long term (current) use of oral hypoglycemic drugs; Z87.891 Personal history of nicotine dependence; Z79.899 Other long term (current) drug therapy; Z98.49 Cataract extraction status, unspecified eye; Z71.3 Dietary counseling and surveillance; Z95.5 Presence of coronary angioplasty implant and graft
CPT/HCPCS: 36415; 71020; 80048; 80053; 81001; 82550; 82553; 83036; 83735; 83880; 84443; 84484; 85025; 85610; 85730; 87086; 93005; 93306; 93880; 94760; 96374; 99285

== ENCOUNTER 2017-11-18 17:02 | Observation (INO) | payer MEDICARE ==
[2017-11-18 18:26] LABS: Basophils % (A) 0 %; Eosinophils # (A) 0.1 k/uL (0-0.7); Eosinophils % (A) 2 %; HCT 43.7 % (39.0-53.0); HGB 13.8 gm/dL (13.0-17.5); Lymphocytes # (A) 1.2 k/uL (1.0-4.8); Lymphocytes % (A) 24 %; MCH 31.6 pg (25.0-35.0); MCHC 31.7 g/dL (31.0-37.0); MCV 99.9 fL (80.0-100.0); Mean Platelet Volume 7.4; Monocytes # (A) 0.3 k/uL (0-1.0); Monocytes % (A) 7 %; Neutrophils # (A) 3.1 k/uL (1.3-7.7); Neutrophils % (A) 65 %; Platelet Count 113 k/uL (150-450); RBC 4.38 m/uL (4.30-5.90); RDW 13.7 % (11.5-15.5); WBC 4.8 k/uL (3.8-10.6)
[2017-11-18 18:45] LABS: Appearance,Urine Clear (Clear); Bilirubin,Urine Negative (Negative); Blood,Urine Negative (Negative); Color,Urine Light Yellow; Glucose,Urine (UA) Negative (Negative); Ketones,Urine Negative (Negative); Leukocyte Esterase,Urine Negative (Negative); Nitrite,Urine Negative (Negative); PH, Urine 6.5 (5.0-8.0); Protein,Urine Negative (Negative); Specific Gravity,Urine 1.008 (1.001-1.035); Urobilinogen,Urine <2.0 mg/dL (<2.0)
[2017-11-18 18:52] LABS: Albumin 3.7 g/dL (3.5-5.0); Calcium 9.3 mg/dL (8.4-10.2); Magnesium 2.1 mg/dL (1.6-2.3); Potassium 4.3 mmol/L (3.5-5.1); Total Bilirubin 0.5 mg/dL (0.2-1.3); Total Protein 6.5 g/dL (6.3-8.2)
--- NOTE | 2017-11-18 18:52 | ED ---
General Adult HPI - General Chief complaint: Recheck/Abnormal Lab/Rx Stated complaint: Low Pulse Source: patient Mode of arrival: wheelchair Limitations: no limitations - History of Present Illness Initial comments: Patient is an 87-year-old male presenting for low heart rate. The patient has a history of Parkinson's, CAD, CABG, and states that a caregiver evaluated him at home and noted to have a heart rate of low 40s and was also undetectable. This occurred approximately 5 PM and the patient states he lives alone. He denies any chest pain or shortness of breath as well as abdominal pain or nausea /vomiting/diarrhea but states that his only complaint is mild fatigue and started earlier today. - Related Data Home Medications Medication Instructions Recorded Confirmed Fish Oil/Dha/Epa [Fish Oil 1,200 1 cap PO DAILY 10/14/16 11/18/17 mg Fish Oil] Isosorbide Mononitrate ER [Imdur] 30 mg PO DAILY 10/14/16 11/18/17 Multivitamin [Men's Multi-Vitamin] 1 tab PO DAILY 10/14/16 11/18/17 Calcium Carbonate/Vitamin D3 1 tab PO DAILY 04/03/17 11/18/17 [Calcium 600-Vit D3 400 Caplet] Carbidopa-Levodopa 25-100 mg 1 tab PO QID 04/03/17 11/18/17 [Sinemet 25-100 mg] Acyclovir [Zovirax] 400 mg PO TID 11/18/17 11/18/17 Previous Rx's Medication Instructions Recorded Nitroglycerin Sl Tabs [Nitrostat] 0.4 mg SUBLINGUAL Q5M PRN #25 tab 06/19/16 Aspirin 81 mg PO DAILY chew 10/19/16 Clopidogrel [Plavix] 75 mg PO DAILY tab 10/19/16 Famotidine [Pepcid] 20 mg PO DAILY tab 10/19/16 Furosemide [Lasix] 20 mg PO DAILY #30 tab 04/06/17 glipiZIDE XL [Glucotrol XL] 5 mg PO DAILY #30 tab 04/06/17 Allergies Allergy/AdvReac Type Severity Reaction Status Date / Time No Known Allergies Allergy Verified 11/18/17 17:35 Review of Systems ROS Statement: Those systems with pertinent positive or pertinent negative responses have been documented in the HPI. Constitutional: Negative for chills, and fever. Positive for fatigue HENT: Negative for congestion. Respiratory: Negative for chest tightness, shortness of breath and wheezing. Cardiovascular: Negative for chest pain and palpitations. Gastrointestinal: Negative for abdominal pain. Negative for abdominal distention , diarrhea, nausea and vomiting. Genitourinary: Negative for dysuria. Musculoskeletal: Negative for back pain, neck pain and neck stiffness. Skin: Negative for color change. Neurological: Negative for dizziness, speech difficulty, weakness and light- headedness. Psychiatric/Behavioral: Negative for agitation and confusion. The patient is not nervous/anxious. ROS Other: All systems not noted in ROS Statement are negative. Past Medical History Past Medical History: Coronary Artery Disease (CAD), Chest Pain / Angina, Diabetes Mellitus, Hyperlipidemia, Hypertension, Myocardial Infarction ([place]), Prostate Disorder Additional Past Medical History / Comment(s): 10-14-16 STEMI History of Any Multi-Drug Resistant Organisms: None Reported Past Surgical History: Back Surgery, Coronary Bypass/CABG, Heart Catheterization , Orthopedic Surgery Additional Past Surgical History / Comment(s): 10-14-16 HEART CATH "CLOTS REMOVED AND 3 STENTS TO SVG TO PDA,STILL NO FLOW"2006 CABG -LT INTERNAL MAMMARY ARTERY GRAFT TO LAD, SVG TO DAIG, SVG TO PDA. carpal tunnel, cataracts removed, LASER PROCEDURE FOR ENLARGED PROSTATE, HEART CATH/PTCA 1982 Past Anesthesia/Blood Transfusion Reactions: No Reported Reaction Additional Past Anesthesia/Blood Transfusion Reaction / Comment(s): PT IS JEHOVAH WITNESS-NO BLOOD PRODUCTS Past Psychological History: No Psychological Hx Reported Smoking Status: Former smoker Past Alcohol Use History: None Reported Past Drug Use History: None Reported - Past Family History Mother History Unknown: Yes Family Medical History: Hypertension Father History Unknown: Yes Family Medical History: Hypertension General Exam - General Exam Comments Initial Comments: Physical Exam Constitutional: Pt is oriented to person, place, and time. Pt appears well- developed and well-nourished. No distress. HENT: Head: Normocephalic and atraumatic. Eyes: EOM are normal. Neck: Normal range of motion. Neck supple. Cardiovascular: Normal rate, regular rhythm, S1 normal, S2 normal, 3/6 systolic murmur appreciated. Exam reveals no gallop and no friction rub. No murmur heard. Pulmonary/Chest: Effort normal and breath sounds normal. No tachypnea and no bradypnea. No respiratory distress. No wheezes or rales noted. Abdominal: Soft. Bowel sounds are normal. Pt exhibits no shifting dullness, no distension, no pulsatile liver, no fluid wave, no abdominal bruit and no ascites. There is no tenderness. There is no rigidity, no rebound, no guarding, no tenderness at McBurney's point and negative Nguyen's sign. Musculoskeletal: Normal range of motion. Neurological: Pt is alert and oriented to person, place, and time. No cranial nerve deficit. Skin: Skin is warm and dry. No rash noted. Pt is not diaphoretic. No erythema. No pallor. Psychiatric: Pt has a normal mood and affect. Pt behavior is normal. Thought content normal. 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 Rate is 73, ID interval 184, QRS 102, QTC 453 Medical Decision Making - Medical Decision Making Laboratory studies revealed that there was no elevation in troponin in hemoglobin was also stable and EKG showed no evidence of bradycardia. Urinalysis also showed no evidence of infection and EKG showed no bradycardia. However, because the patient does have significant comorbidities, the patient is felt to be a significant risk to send home especially since he lives by himself. Patient originally wanted to be discharged but after discussion with his PCP, he has been encouraged the patient stay in observation for further evaluation and treatment. Patient is agreeable to plan. - Lab Data Result diagrams: 11/18/17 18:05 11/18/17 18:05 Lab Results 11/18/17 11/18/17 11/18/17 Range/Units 18:05 18:05 18:05 WBC 4.8 (3.8-10.6) k/uL RBC 4.38 (4.30-5.90) m/uL Hgb 13.8 (13.0-17.5) gm/dL Hct 43.7 (39.0-53.0) % MCV 99.9 (80.0-100.0) fL MCH 31.6 (25.0-35.0) pg MCHC 31.7 (31.0-37.0) g/dL RDW 13.7 (11.5-15.5) % Plt Count 113 L (150-450) k/uL Neutrophils % 65 % Lymphocytes % 24 % Monocytes % 7 % Eosinophils % 2 % Basophils % 0 % Neutrophils # 3.1 (1.3-7.7) k/uL Lymphocytes # 1.2 (1.0-4.8) k/uL Monocytes # 0.3 (0-1.0) k/uL Eosinophils # 0.1 (0-0.7) k/uL Basophils # 0.0 (0-0.2) k/uL PT (9.0-12.0) sec INR (<1.2) APTT (22.0-30.0) sec Sodium 140 (137-145) mmol/L Potassium 4.3 (3.5-5.1) mmol/L Chloride 101 (98-107) mmol/L Carbon Dioxide 29 (22-30) mmol/L Anion Gap 10 mmol/L BUN 32 H (9-20) mg/dL Creatinine 1.80 H (0.66-1.25) mg/dL Est GFR (MDRD) Af Amer 43 (>60 ml/min/1.73 sqM) Est GFR (MDRD) Non-Af 36 (>60 ml/min/1.73 sqM) Glucose 137 H (74-99) mg/dL Calcium 9.3 (8.4-10.2) mg/dL Magnesium 2.1 (1.6-2.3) mg/dL Total Bilirubin 0.5 (0.2-1.3) mg/dL AST 25 (17-59) U/L ALT 12 L (21-72) U/L Alkaline Phosphatase 71 (38-126) U/L Total Creatine Kinase 92 (55-170) U/L CK-MB (CK-2) 2.4 (0.0-2.4) ng/mL CK-MB (CK-2) Rel Index 2.6 Troponin I 0.023 (0.000-0.034) ng/mL Total Protein 6.5 (6.3-8.2) g/dL Albumin 3.7 (3.5-5.0) g/dL Urine Color Urine Appearance (Clear) Urine pH (5.0-8.0) Ur Specific [place] (1.001-1.035) Urine Protein (Negative) Urine Glucose (UA) (Negative) Urine Ketones (Negative) Urine Blood (Negative) Urine Nitrite (Negative) Urine Bilirubin (Negative) Urine Urobilinogen (<2.0) mg/dL Ur Leukocyte Esterase (Negative) Influenza Type A RNA (Not Detectd) Influenza Type B (PCR) (Not Detectd) 11/18/17 11/18/17 11/18/17 Range/Units 18:05 18:30 19:50 WBC (3.8-10.6) k/uL RBC (4.30-5.90) m/uL Hgb (13.0-17.5) gm/dL Hct (39.0-53.0) % MCV (80.0-100.0) fL MCH (25.0-35.0) pg MCHC (31.0-37.0) g/dL RDW (11.5-15.5) % Plt Count (150-450) k/uL Neutrophils % % Lymphocytes % % Monocytes % % Eosinophils % % Basophils % % Neutrophils # (1.3-7.7) k/uL Lymphocytes # (1.0-4.8) k/uL Monocytes # (0-1.0) k/uL Eosinophils # (0-0.7) k/uL Basophils # (0-0.2) k/uL PT 10.8 (9.0-12.0) sec INR 1.1 (<1.2) APTT 25.2 (22.0-30.0) sec Sodium (137-145) mmol/L Potassium (3.5-5.1) mmol/L Chloride (98-107) mmol/L Carbon Dioxide (22-30) mmol/L Anion Gap mmol/L BUN (9-20) mg/dL Creatinine (0.66-1.25) mg/dL Est GFR (MDRD) Af Amer (>60 ml/min/1.73 sqM) Est GFR (MDRD) Non-Af (>60 ml/min/1.73 sqM) Glucose (74-99) mg/dL Calcium (8.4-10.2) mg/dL Magnesium (1.6-2.3) mg/dL Total Bilirubin (0.2-1.3) mg/dL AST (17-59) U/L ALT (21-72) U/L Alkaline Phosphatase (38-126) U/L Total Creatine Kinase (55-170) U/L CK-MB (CK-2) (0.0-2.4) ng/mL CK-MB (CK-2) Rel Index Troponin I (0.000-0.034) ng/mL Total Protein (6.3-8.2) g/dL Albumin (3.5-5.0) g/dL Urine Color Light Yellow Urine Appearance Clear (Clear) Urine pH 6.5 (5.0-8.0) Ur Specific [place] 1.008 (1.001-1.035) Urine Protein Negative (Negative) Urine Glucose (UA) Negative (Negative) Urine Ketones Negative (Negative) Urine Blood Negative (Negative) Urine Nitrite Negative (Negative) Urine Bilirubin Negative (Negative) Urine Urobilinogen <2.0 (<2.0) mg/dL Ur Leukocyte Esterase Negative (Negative) Influenza Type A RNA Not Detected (Not Detectd) Influenza Type B (PCR) Not Detected (Not Detectd) Disposition Clinical Impression: Bradycardia Disposition: ADMITTED IP TO THIS HOSP Condition: Good Referrals: Adelita Mullen MD [Primary Care Provider] - 1-2 days Decision to Admit Reason: Admit from EC
[2017-11-18 19:01] LABS: Creatine Kinase MB 2.4 ng/mL (0.0-2.4); Troponin I 0.023 ng/mL (0.000-0.034)
[2017-11-18 19:06] LABS: INR 1.1 (<1.2); Partial Thromboplastin Time 25.2 sec (22.0-30.0); Prothrombin Time 10.8 sec (9.0-12.0)
--- NOTE | 2017-11-18 19:53 | XR ---
EXAMINATION TYPE: XR chest 2V DATE OF EXAM: 11/18/2017 COMPARISON: 04/04/2017 HISTORY: 87-year-old male weakness TECHNIQUE: AP and lateral views FINDINGS: Median sternotomy wires are present with post-CABG clips in the mediastinum. Heart is borderline enla rged. Diffuse interstitial prominence without pleural effusion. There is some focal patchy density po sterior lower hemithorax on the lateral view probably summation. Retained epicardial pacer leads. IMPRESSION: 1. Cardiomegaly and interstitial changes. Correlate to exclude mild CHF. 2. Some focal patchy posterior density on the lateral view could represent atelectasis or developing infiltrate. Recommend four-week follow-up to reassess this area.
[2017-11-18] MEDS ORDERED: NALOXONE 0.4 MG/ML 1 ML VIAL IV PRN (20:25)
[2017-11-18 21:25] VITALS: RESP 16
[2017-11-19 07:09] LABS: Glucose,Whole Blood 125 mg/dL (75-99)
[2017-11-19] MEDS ORDERED: NITROGLYCERIN SL TABS 0.4 MG TAB SUBLINGUAL PRN (08:54)
[2017-11-19] MEDS ORDERED: FUROSEMIDE 20 MG TAB PO SCH ×2 (09:00→12:47)
--- NOTE | 2017-11-19 10:55 | CONS ---
CONSULTATION Mr. Lopes is a 87-year-old gentleman with a known history of CAD, prior bypass surgery and an attempted unsuccessful PCI of the right coronary artery that was performed in October of 2016. This gentleman has underlying sick sinus syndrome and is not on any rate lowering agents and he lives alone but has a caregiver. Apparently, the caregiver called saying that his heart rate was slow and brought him into the hospital. The patient insists that he has no symptoms. He did not have chest pain. He had no lightheadedness, syncope or near syncope. In October [address] he had a [address]-elevation NC and had a total occlusion of the vein graft to the RCA that could not be opened up. He is known to have a SVG to the diagonal that has significant lesion. The ALEX to LAD is patent and functioning well. RCA graft was occluded and was unsuccessful in terms of opening it up. He also has a left main that has a 50-60% lesion. Large caliber circumflex with severe lesion in the 90% range proximally at the bifurcation. The LAD was totally occluded. However, this visit is not for chest pain. The caregiver saw a rate that was low. After arrival in the emergency room, the 1st EKG at 5:21 p.m. revealed a sinus rhythm at 73. His heart rate is in the 60s and sometimes in the high 40s, but he also has PACs making it somewhat difficult for the computer to count. He has a sinus rhythm with a relatively normal QRS with some voltage criteria for LVH. There is evidence of poor R-wave progression, evidence of old inferior NC, but there is no significant troponin elevation to suggest myocardial injury. The patient is resting comfortably. He is asymptomatic at this time. PAST MEDICAL HISTORY: 1. CAD with prior bypass surgery in 2006. 2. Acute inferior NC in October of 2016 with unsuccessful PCI. The SVG to RCA was occluded, could not be opened up in spite of aspiration thrombectomy and stenting. 3. History of type 2 diabetes mellitus. 4. History of underlying sick sinus syndrome, not on any rate lowering agents. 5. Probable Parkinson's. MEDICATIONS: At home include: Glucotrol XL, Imdur 30 mg daily, Lasix 20 mg daily, Plavix 75 mg daily, aspirin 81 mg daily. He also takes Sinemet 25 100 and also calcium carbonate tablets and some vitamin supplements. ALLERGIES: None. REVIEW OF SYSTEMS: Unremarkable other than above-mentioned facts. EXAMINATION: Pressure is 130/80, pulse rate is about 60 per minute at the time of my evaluation. HEENT: Unremarkable. Fundus was not examined by me. Neck is supple. There is JVD of 1 cm. No carotid bruit. Heart exam reveals S1, S2 with a short systolic murmur at base. Lungs revealed decent air entry. Abdomen is soft, nontender. Lower extremities reveal diminished pulses. Central nervous system normal. EKG revealed sinus mechanism, LVH by voltage criteria, poor R-wave progression, old inferior NC and some baseline artifact. Rhythm strips suggest some frequent PACs. IMPRESSION: 1. Asymptomatic bradycardia without significant symptoms at all. 2. Coronary artery disease with significant disease involving the vein and graft as well as [place] vessel for which medical therapy was advised after unsuccessful PCI of vein graft to right coronary artery in October 2016. 3. Type 2 diabetes. 4. Parkinsonism. 5. Sick sinus syndrome, not on any rate lowering agents. RECOMMENDATIONS: I recommend that we obtain thyroid function tests, observe him for another 24 hours with increase activity. If he has no further symptoms, he can be discharged tomorrow, but if he has any symptoms and more significant bradycardia may benefit from a pacemaker. Discussed my thoughts in detail with the patient and family. Thank you very much for the consult. HENNY / GALILEO: [id number] /
[2017-11-19 12:10] LABS: T4, Free (Free Thyroxine) 1.22 ng/dL (0.78-2.19)
[2017-11-19 12:11] LABS: Glucose,Whole Blood 174 mg/dL (75-99)
[2017-11-19] MEDS: ASPIRIN 81 MG PO SCH (12:47)
[2017-11-19] MEDS: FAMOTIDINE 20 MG TAB PO SCH (12:48)
[2017-11-19] MEDS: CARBIDOPA-LEVODOPA 25-100 MG 1 EACH TAB PO SCH ×4 (12:48→21:27)
[2017-11-19] MEDS: CLOPIDOGREL 75 MG TAB PO SCH (12:48)
[2017-11-19] MEDS: ACYCLOVIR 200 MG CAP PO SCH ×3 (12:48→21:28)
[2017-11-19] MEDS: ISOSORBIDE MONONITRATE ER 30 MG TAB.ER.24H PO SCH (12:49)
[2017-11-19] MEDS: MULTIVITAMINS, THERA 1 EACH TAB PO SCH (12:49)
[2017-11-19] MEDS: CALCIUM CARB-VIT D 500MG-200UN 1 EACH TAB PO SCH (12:49)
[2017-11-19] MEDS: FISH OIL 1200MG PO SCH (12:52)
--- NOTE | 2017-11-19 13:23 | P.HPIM ---
History of Present Illness H&P Date: 11/19/17 87-year-old gentleman with very complex past medical history significant for coronary artery disease with history of CABG who presented to the emergency room with bradycardia noted by his caregiver. Patient said that he was completely asymptomatic. He denies dizziness or lightheadedness. No weakness. According to his caregiver heart rate was in the low 40s and subsequently was not read on the device at home. In the emergency room on presentation he was in normal sinus rhythm with heart rate in the 70s. He was noted to have PACs on the monitor. He is currently placed on observation. He was seen and evaluated by cardiology. Review of Systems Review of system: 14 points review of systems were obtained and were negative except to what were mentioned in the HPI. Past Medical History Past Medical History: Coronary Artery Disease (CAD), Chest Pain / Angina, Diabetes Mellitus, Hyperlipidemia, Hypertension, Myocardial Infarction ([place]), Prostate Disorder Additional Past Medical History / Comment(s): 10-14-16 STEMI Last Myocardial Infarction Date:: unknown History of Any Multi-Drug Resistant Organisms: None Reported Past Surgical History: Back Surgery, Coronary Bypass/CABG, Heart Catheterization With Stent, Orthopedic Surgery Additional Past Surgical History / Comment(s): 10-14-16 HEART CATH "CLOTS REMOVED AND 3 STENTS TO SVG TO PDA,STILL NO FLOW"2006 CABG -LT INTERNAL MAMMARY ARTERY GRAFT TO LAD, SVG TO DAIG, SVG TO PDA. carpal tunnel, cataracts removed, LASER PROCEDURE FOR ENLARGED PROSTATE, HEART CATH/PTCA 1982 Past Anesthesia/Blood Transfusion Reactions: No Reported Reaction Additional Past Anesthesia/Blood Transfusion Reaction / Comment(s): PT IS JEHOVAH WITNESS-NO BLOOD PRODUCTS Date of Last Stent Placement:: 2016 Past Psychological History: No Psychological Hx Reported Additional Psychological History / Comment(s): PT LIVES IN A SINGLE LEVEL HOME BY HIMSELF. 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 Smoking Status: Former smoker Past Alcohol Use History: None Reported Additional Past Alcohol Use History / Comment(s): STARTED SMOKING 1950 AND QUIT 1958 SMOKED 1PPD Past Drug Use History: None Reported - Past Family History Mother History Unknown: Yes Family Medical History: Hypertension Father History Unknown: Yes Family Medical History: Hypertension Medications and Allergies Home Medications Medication Instructions Recorded Confirmed Type Nitroglycerin Sl Tabs [Nitrostat] 0.4 mg SUBLINGUAL Q5M PRN #25 tab 06/19/16 Rx Fish Oil/Dha/Epa [Fish Oil 1,200 1 cap PO DAILY 10/14/16 11/18/17 History mg Fish Oil] Isosorbide Mononitrate ER [Imdur] 30 mg PO DAILY 10/14/16 11/18/17 History Multivitamin [Men's Multi-Vitamin] 1 tab PO DAILY 10/14/16 11/18/17 History Aspirin 81 mg PO DAILY chew 10/19/16 11/18/17 Rx Clopidogrel [Plavix] 75 mg PO DAILY tab 10/19/16 11/18/17 Rx Famotidine [Pepcid] 20 mg PO DAILY tab 10/19/16 11/18/17 Rx Calcium Carbonate/Vitamin D3 1 tab PO DAILY 04/03/17 11/18/17 History [Calcium 600-Vit D3 400 Caplet] Carbidopa-Levodopa 25-100 mg 1 tab PO QID 04/03/17 11/18/17 History [Sinemet 25-100 mg] Furosemide [Lasix] 20 mg PO DAILY #30 tab 04/06/17 11/18/17 Rx glipiZIDE XL [Glucotrol XL] 5 mg PO DAILY #30 tab 04/06/17 11/18/17 Rx Acyclovir [Zovirax] 400 mg PO TID 11/18/17 11/18/17 History Allergies Allergy/AdvReac Type Severity Reaction Status Date / Time No Known Allergies Allergy Verified 11/18/17 21:30 Physical Exam Vitals: Vital Signs Temp Pulse Pulse Pulse Pulse Resp BP 11/19/17 12:00 97.6 F 73 16 11/19/17 08:00 97.6 F 76 16 11/19/17 04:00 97.9 F 81 42 L 16 11/19/17 03:39 16 11/19/17 00:00 98.3 F 77 16 11/18/17 21:57 16 11/18/17 21:23 98.4 F 48 L 16 11/18/17 20:43 97.8 F 80 18 132/60 11/18/17 19:50 97.8 F 68 16 135/62 11/18/17 17:52 72 11/18/17 17:06 98 F 73 16 172/71 BP Pulse Ox 11/19/17 12:00 134/64 95 11/19/17 08:00 178/73 98 11/19/17 04:00 124/60 99 11/19/17 03:39 11/19/17 00:00 119/56 98 11/18/17 21:57 11/18/17 21:23 127/75 97 11/18/17 20:43 97 11/18/17 19:50 98 11/18/17 17:52 11/18/17 17:06 96 Intake and Output 11/18/17 11/19/17 11/19/17 22:59 06:59 14:59 Other: Voiding Method Toilet Toilet # Voids 2 Weight 70.307 kg General: The patient is awake and alert, in no distress Eye: there is normal conjunctiva bilaterally. Neck: The neck is supple, there is no JVD. Cardiovascular: Normal S1-S2, no S3-S4, no murmurs. Respiratory: Lungs clear to auscultation bilaterally Gastrointestinal: Abdomen is soft, nontender Musculoskeletal: There is no pedal edema. Neurological:. Speech is normal. Skin: There is dry and scabbed vesicles noted on the right lower quadrant of the abdomen as well as on his back on the right side. Results CBC & Chem 7: 11/18/17 18:05 11/18/17 18:05 Labs: Abnormal Lab Results - Last 24 Hours (Table) 11/18/17 11/18/17 11/19/17 Range/Units 18:05 18:05 07:07 Plt Count 113 L (150-450) k/uL BUN 32 H (9-20) mg/dL Creatinine 1.80 H (0.66-1.25) mg/dL Glucose 137 H (74-99) mg/dL POC Glucose (mg/dL) 125 H (75-99) mg/dL ALT 12 L (21-72) U/L 11/19/17 Range/Units 12:09 Plt Count (150-450) k/uL BUN (9-20) mg/dL Creatinine (0.66-1.25) mg/dL Glucose (74-99) mg/dL POC Glucose (mg/dL) 174 H (75-99) mg/dL ALT (21-72) U/L Thrombosis Risk Factor Assmnt - Choose All That Apply Any of the Below Risk Factors Present?: No Other Risk Factors: Yes Each Risk Factor Represents 3 Points: Age 75 years or older Other congenital or acquired thrombophilia - If yes, enter type in comment: No Thrombosis Risk Factor Assessment Total Risk Factor Score: 3 Thrombosis Risk Factor Assessment Level: Moderate Risk Assessment and Plan Assessment: 1. Episode of asymptomatic bradycardia noted at home currently in normal sinus rhythm. Seen and evaluated by cardiology. Electrolytes within normal range. We will continue telemetry monitoring for 24 hours. No other testing ordered by cardiology. 2. Shingles rash currently treated with Zovirax. Appears to be improving significantly compared to last week. 3. Coronary artery disease with history of CABG 4. Parkinson's disease 5. Stage IIIB chronic kidney disease with baseline creatinine around 1.7
[2017-11-19 17:10] LABS: Glucose,Whole Blood 150 mg/dL (75-99)
[2017-11-19 20:14] LABS: Glucose,Whole Blood 109 mg/dL (75-99)
[2017-11-20 06:54] LABS: Glucose,Whole Blood 156 mg/dL (75-99)
[2017-11-20] MEDS: ACYCLOVIR 200 MG CAP PO SCH (11:17)
[2017-11-20] MEDS: ISOSORBIDE MONONITRATE ER 30 MG TAB.ER.24H PO SCH (11:18)
[2017-11-20] MEDS: MULTIVITAMINS, THERA 1 EACH TAB PO SCH (11:19)
[2017-11-20] MEDS: FAMOTIDINE 20 MG TAB PO SCH (11:19)
[2017-11-20] MEDS: CLOPIDOGREL 75 MG TAB PO SCH (11:19)
[2017-11-20] MEDS: ASPIRIN 81 MG PO SCH (11:19)
[2017-11-20] MEDS: CALCIUM CARB-VIT D 500MG-200UN 1 EACH TAB PO SCH (11:19)
[2017-11-20] MEDS: CARBIDOPA-LEVODOPA 25-100 MG 1 EACH TAB PO SCH (11:20)
[2017-11-20] MEDS: FISH OIL 1200MG PO SCH (11:25)
[2017-11-20 12:12] VITALS: BP 114/58; PULSE 40; TEMP 98.2
--- NOTE | 2017-11-20 12:30 | ECHOF ---
Referral Reason:bradycardia MEASUREMENTS -------- HEIGHT: 177.8 cm WEIGHT: 70.3 kg BP: 125/65 RVIDd: 2.7 cm (< 3.3) IVSd: 1.1 cm (0.6 - 1.1) LVIDd: 5.6 cm (3.9 - 5.3) LVPWd: 1.1 cm (0.6 - 1.1) IVSs: 1.4 cm LVIDs: 4.1 cm LVPWs: 1.4 cm LAESV Index (A-L): 39.83 ml/m Ao Diam: 3.5 cm (2.0 - 3.7) AV Cusp: 0.9 cm (1.5 - 2.6) LA Diam: 4.2 cm (2.7 - 3.8) EPSS: 1.3 cm MV E Natan: 0.72 m/s MV DecT: 202 ms MV A Natan: 0.62 m/s MV E/A Ratio: 1.17 AV maxP.13 mmHg AV meanP.25 mmHg AR PHT: 1153 ms RAP: 5.00 mmHg RVSP: 38.75 mmHg MV EF SLOPE: 123.36 mm/s (70 - 150) MV EXCURSION: 1.82 cm (> 18.000) FINDINGS -------- Bigeminy This was a technically adequate study. The left ventricular size is normal. There is borderline concentric left ventricular hypertrophy. There is moderate global hypokinesis of LV . Overall left ventricular systolic function is mild-mo derately impaired with, an EF between 40 - 45 %. Basal inferior LV wall motion is hypokinetic. M id inferior LV wall motion is hypokinetic. The right ventricle is normal in size and function. LA is moderately dilated 34-39 ml/m2 The right atrium is normal in size. Aortic valve is trileaflet and is moderately thickened. There is moderate aortic regurgitation. T here is mild aortic stenosis present. The mitral valve leaflets are mildly thickened. Moderate mitral regurgitation is present. Mild tricuspid regurgitation present. There is mild pulmonary hypertension. The right ventricular systolic pressure, as measured by Doppler, is 38.75mmHg. Trace/mild (physiologic) pulmonic regurgitation. The aortic root size is normal. IVC Not well visulized. The pericardium is normal. There is no pericardial effusion. CONCLUSIONS -------- 1. Bigeminy 2. This was a technically adequate study. 3. The left ventricular size is normal. 4. There is borderline concentric left ventricular hypertrophy. 5. There is moderate global hypokinesis of LV . 6. Basal inferior LV wall motion is hypokinetic. 7. Mid inferior LV wall motion is hypokinetic. 8. LA is moderately dilated 34-39 ml/m2 9. Aortic valve is trileaflet and is moderately thickened. 10. There is moderate aortic regurgitation. 11. There is mild aortic stenosis present. 12. The mitral valve leaflets are mildly thickened. 13. Moderate mitral regurgitation is present. 14. Mild tricuspid regurgitation present. 15. There is mild pulmonary hypertension. 16. The right ventricular systolic pressure, as measured by Doppler, is 38.75mmHg. 17. Trace/mild (physiologic) pulmonic regurgitation. 18. The aortic root size is normal. 19. IVC Not well visulized. 20. There is no pericardial effusion. TRANSPORTATION MAINTENANCE OPERATOR: Trevin Arteaga RDCS
[2017-11-20 12:40] LABS: Glucose,Whole Blood 114 mg/dL (75-99)
--- NOTE | 2017-11-20 13:20 | P.PN ---
Subjective Progress Note Date: 11/20/17 Mr. Lopes is seen and examined today. He continues to have frequent PVC's in the form of bigemminy. He denies chest pain, shortness of breath, dizziness, palpitations, diaphoresis, nausea or vomiting. Thyroid studies performed yesterday are unremarkable as well. Echocardiogram performed reveals ejection fraction 40-45%, basal inferior hypokinesis, mild inferior hypokinesis and moderately dilated left atrium, he also has moderate aortic regurg, mild aortic stenosis, moderate MR, mild TR and mild pulmonary hypertension with an RVSP 38.75 mmHg. This is consistent with his last echocardiogram performed in April 2017. Objective - Vital Signs Vital signs: Vital Signs Temp 98.2 F 11/20/17 12:00 Pulse 40 L 11/20/17 12:00 Resp 16 11/20/17 12:00 BP 114/58 11/20/17 12:00 Pulse Ox 95 11/20/17 12:00 Intake & Output 11/19/17 11/20/17 11/20/17 18:59 06:59 18:59 Intake Total 700 350 Balance 700 350 Intake: Oral 700 350 Other: Voiding Method Toilet Toilet Toilet # Voids 2 - Exam Blood pressure 114/58 heart rate 40 afebrile GENERAL: Well-appearing, well-nourished and in no acute distress. NECK: Supple without JVD or thyromegaly. LUNGS: Breath sounds clear to auscultation bilaterally. Respiration equal and unlabored. No wheezes, rales or rhonchi. Diminished. HEART: Regular rate and rhythm with systolic murmur at the base, no rubs or gallops. S1 and S2 heard. EXTREMITIES: Normal range of motion, no edema. No clubbing or cyanosis. Peripheral pulses intact. - Labs CBC & Chem 7: 11/18/17 18:05 11/18/17 18:05 Labs: Abnormal Lab Results - Last 24 Hours (Table) 11/19/17 11/19/17 11/20/17 Range/Units 17:07 20:11 06:45 POC Glucose (mg/dL) 150 H 109 H 156 H (75-99) mg/dL 11/20/17 Range/Units 12:35 POC Glucose (mg/dL) 114 H (75-99) mg/dL Assessment and Plan Assessment: ASSESSMENT 1. Bradycardia, asymptomatic 2. History of known coronary artery disease status post bypass grafting 3. Sick sinus syndrome, not on any rate lowering AV nicolas blocking agents 4. Diabetes mellitus type 2 5. Parkinson's disease PLAN We will set up for a 24-hour Holter monitor. No further cardiac work-up, he is stable from a cardiac perspective. Follow-up with Dr. aGrcia in 1-2 weeks. Nurse Practitioner note has been reviewed, I agree with a documented findings and plan of care. Patient was seen and examined.
--- NOTE | 2017-11-20 13:21 | P.DS ---
Providers Date of admission: 11/18/17 20:25 Expected date of discharge: 11/20/17 Attending physician: Adelita Mullen Consults: 11/19/17 08:53 Consult Physician Routine Consulting Provider: Raz Epps Consult Reason/Comments: bradycardia Do you want consulting provider notified?: Yes Primary care physician: [facility] Course: 1. Episode of asymptomatic bradycardia noted at home currently in normal sinus rhythm. Seen and evaluated by cardiology. Electrolytes within normal range. no events on telemetry monitoring for 24 hours. echo reviewed. No other testing ordered by cardiology. 2. Shingles rash currently treated with Zovirax. Appears to be improving significantly compared to last week. 3. Coronary artery disease with history of CABG 4. Parkinson's disease 5. Stage IIIB chronic kidney disease with baseline creatinine around 1.7 Patient Condition at Discharge: Good Plan - Discharge Summary Discharge Rx Participant: No New Discharge Prescriptions: New Furosemide [Lasix] 20 mg PO MoWeFr tab Continue Nitroglycerin Sl Tabs [Nitrostat] 0.4 mg SUBLINGUAL Q5M PRN #25 tab PRN Reason: Chest Pain Multivitamin [Men's Multi-Vitamin] 1 tab PO DAILY Fish Oil/Dha/Epa [Fish Oil 1,200 mg Fish Oil] 1 cap PO DAILY Isosorbide Mononitrate ER [Imdur] 30 mg PO DAILY Aspirin 81 mg PO DAILY chew Clopidogrel [Plavix] 75 mg PO DAILY tab Famotidine [Pepcid] 20 mg PO DAILY tab Calcium Carbonate/Vitamin D3 [Calcium 600-Vit D3 400 Caplet] 1 tab PO DAILY Carbidopa-Levodopa 25-100 mg [Sinemet 25-100 mg] 1 tab PO QID glipiZIDE XL [Glucotrol XL] 5 mg PO DAILY #30 tab Discontinued Furosemide [Lasix] 20 mg PO DAILY #30 tab Acyclovir [Zovirax] 400 mg PO TID Discharge Medication List Nitroglycerin Sl Tabs [Nitrostat] 0.4 mg SUBLINGUAL Q5M PRN #25 tab 06/19/16 [Rx ] Fish Oil/Dha/Epa [Fish Oil 1,200 mg Fish Oil] 1 cap PO DAILY 10/14/16 [History] Isosorbide Mononitrate ER [Imdur] 30 mg PO DAILY 10/14/16 [History] Multivitamin [Men's Multi-Vitamin] 1 tab PO DAILY 10/14/16 [History] Aspirin 81 mg PO DAILY chew 10/19/16 [Rx] Clopidogrel [Plavix] 75 mg PO DAILY tab 10/19/16 [Rx] Famotidine [Pepcid] 20 mg PO DAILY tab 10/19/16 [Rx] Calcium Carbonate/Vitamin D3 [Calcium 600-Vit D3 400 Caplet] 1 tab PO DAILY 12/16 [History] Carbidopa-Levodopa 25-100 mg [Sinemet 25-100 mg] 1 tab PO QID 04/03/17 [History] glipiZIDE XL [Glucotrol XL] 5 mg PO DAILY #30 tab 04/06/17 [Rx] Furosemide [Lasix] 20 mg PO MoWeFr tab 11/20/17 [Rx] Follow up Appointment(s)/Referral(s): Adelita Mullen MD [Primary Care Provider] - 1-2 days Discharge Disposition: HOME SELF-CARE
== END 2017-11-20 15:01 | disposition home or self-care (01) ==
LOC: EC 17:02 → 3OBS 20:25
PROVIDERS: ADMIT Internal Medicine; ATTEND Internal Medicine
DX: R00.1 Bradycardia, unspecified (principal); I25.810 Atherosclerosis of coronary artery bypass graft(s) without angina pectoris; B02.9 Zoster without complications; I25.82 Chronic total occlusion of coronary artery; G20 Parkinson's disease; I12.9 Hypertensive chronic kidney disease with stage 1 through stage 4 chronic kidney disease, or unspecified chronic kidney disease; N18.3 Chronic kidney disease, stage 3 (moderate); E78.5 Hyperlipidemia, unspecified; E11.22 Type 2 diabetes mellitus with diabetic chronic kidney disease; N42.9 Disorder of prostate, unspecified; Z79.84 Long term (current) use of oral hypoglycemic drugs; Z79.82 Long term (current) use of aspirin; Z79.02 Long term (current) use of antithrombotics/antiplatelets; Z79.899 Other long term (current) drug therapy; Z87.891 Personal history of nicotine dependence; I25.2 Old myocardial infarction; Z95.1 Presence of aortocoronary bypass graft; Z95.5 Presence of coronary angioplasty implant and graft; Z82.49 Family history of ischemic heart disease and other diseases of the circulatory system
CPT/HCPCS: 99285; 36415; 93005; 93306; 84439; 84481; 80053; 82550; 82553; 83735; 84484 ×2; 85025; 85610; 85730; 81003; 87502; 83036; 71046; G0378 ×3

== ENCOUNTER 2018-09-01 02:19 | Emergency (ER) | payer MEDICARE ==
[2018-09-01 02:25] VITALS: TEMP 98.1
--- NOTE | 2018-09-01 03:54 | CT ---
EXAM: CT Head Without Intravenous Contrast CLINICAL HISTORY: ITS.REASON CT Reason: Pain TECHNIQUE: Axial computed tomography images of the head/brain without intravenous contrast. CTDI is 50 mGy and DLP is 1150 mGy-cm. This CT exam was performed using one or more of the following dose reduction techniques: automated exposure control, adjustment of the mA and/or kV according to patient size, and/or use of iterative reconstruction technique. COMPARISON: No relevant prior studies available. FINDINGS: Brain: No hemorrhage, large hypodensity, or mass effect. Chronic microvascular ischemic changes. Ventricles: No hydrocephalus. Mild cerebral white loss. Bones/joints: Unremarkable. Soft tissues: Unremarkable. Sinuses: Completely opacified right maxillary sinus. Mastoid air cells: Clear. IMPRESSION: No acute hemorrhage, hydrocephalus, or mass effect. Completely opacified right maxillary sinus.
--- NOTE | 2018-09-01 04:02 | ED ---
Fall HPI - General Chief Complaint: Fall Stated Complaint: Fall Time Seen by Provider: 09/01/18 02:28 Source: patient Mode of arrival: EMS - History of Present Illness Initial Comments: Patient is an 87-year-old man [facility] from [facility] to have evaluation. The patient had been in a chair and had been attempting to put socks on when he fell from the chair and hit his head. There was no reported loss of consciousness. There was no complaint. retirement personnel reported patient takes anticoagulant and transferred here to have evaluation. MD Complaint: fall Onset/Timin -: hour(s) Fall From: chair When Fall Occurred: 1 hour PROPERTY UNDERWRITER Fall Witnessed: yes, by living facility staff Place Fall Occurred: [facility] Loss of Consciousness: none Prolonged Down Time?: no Symptoms Prior to Fall: none Severity: mild Context: history of frequent falls Associated Symptoms: denies - Related Data Home Medications Medication Instructions Recorded Confirmed Multivitamin [Men's Multi-Vitamin] 1 tab PO DAILY 10/14/16 09/01/18 Calcium Carbonate/Vitamin D3 1 tab PO DAILY 04/03/17 09/01/18 [Calcium 600-Vit D3 400 Caplet] Carbidopa/Levodopa [Sinemet CR 1 tab PO BID 08/16/18 09/01/18 50-200 mg] Rivaroxaban [Xarelto] 15 mg PO DAILY 08/16/18 09/01/18 Bisacodyl [Dulcolax] 10 mg RECTAL DAILY 09/01/18 09/01/18 Furosemide [Lasix] 20 - 40 mg PO DAILY 09/01/18 09/01/18 Insulin Aspart [NovoLOG See Protocol SQ AC-TID 09/01/18 09/01/18 (formulary)] Insulin Aspart [NovoLOG See Protocol SQ ACHS 09/01/18 09/01/18 (formulary)] Midodrine [ProAmatine] 5 mg PO TID 09/01/18 09/01/18 Na Phos,M-B/Na Phos,Di-Ba [Fleet 133 ml RECTAL ONCE 09/01/18 09/01/18 Adult] predniSONE 10 mg PO DAILY 09/01/18 09/01/18 Previous Rx's Medication Instructions Recorded Nitroglycerin Sl Tabs [Nitrostat] 0.4 mg SUBLINGUAL Q5M PRN #25 tab 06/19/16 Famotidine [Pepcid] 20 mg PO DAILY tab 10/19/16 glipiZIDE XL [Glucotrol XL] 5 mg PO DAILY #30 tab 04/06/17 Allopurinol [Zyloprim] 100 mg PO DAILY tab 08/28/18 Melatonin 3 mg PO HS PRN tablet 08/28/18 Colloidal Oatmeal [Eucerin Eczema 1 applic TOPICAL BID #60 gm 08/30/18 Relief] Metoprolol Tartrate [Lopressor] 25 mg PO TID tab 08/30/18 Tamsulosin [Flomax] 0.4 mg PO PC-BRKFST cap.er.24h 08/30/18 predniSONE 40 mg PO DAILY #2 tab 08/30/18 Allergies Allergy/AdvReac Type Severity Reaction Status Date / Time No Known Allergies Allergy Verified 09/01/18 10:49 Review of Systems ROS Statement: Those systems with pertinent positive or pertinent negative responses have been documented in the HPI. ROS Other: All systems not noted in ROS Statement are negative. Eyes: Denies: vision change Respiratory: Denies: cough, dyspnea Cardiovascular: Denies: chest pain, syncope Gastrointestinal: Denies: abdominal pain, vomiting Musculoskeletal: Denies: back pain Skin: Denies: lesions Neurological: Denies: headache, weakness Past Medical History Past Medical History: Coronary Artery Disease (CAD), Chest Pain / Angina, Diabetes Mellitus, Hyperlipidemia, Hypertension, Myocardial Infarction ([place]), Prostate Disorder Additional Past Medical History / Comment(s): 10-14-16 STEMI Last Myocardial Infarction Date:: unknown History of Any Multi-Drug Resistant Organisms: None Reported Past Surgical History: Back Surgery, Coronary Bypass/CABG, Heart Catheterization With Stent, Orthopedic Surgery Additional Past Surgical History / Comment(s): 10-14-16 HEART CATH "CLOTS REMOVED AND 3 STENTS TO SVG TO PDA,STILL NO FLOW"2006 CABG -LT INTERNAL MAMMARY ARTERY GRAFT TO LAD, SVG TO DAIG, SVG TO PDA. carpal tunnel, cataracts removed, LASER PROCEDURE FOR ENLARGED PROSTATE, HEART CATH/PTCA 1982 Past Anesthesia/Blood Transfusion Reactions: No Reported Reaction Additional Past Anesthesia/Blood Transfusion Reaction / Comment(s): PT IS JEHOVAH WITNESS-NO BLOOD PRODUCTS Date of Last Stent Placement:: 2016 Past Psychological History: No Psychological Hx Reported Smoking Status: Former smoker Past Alcohol Use History: None Reported Past Drug Use History: None Reported - Past Family History Mother History Unknown: Yes Family Medical History: Hypertension Father History Unknown: Yes Family Medical History: Hypertension General Exam Limitations: no limitations General appearance: alert, in no apparent distress Head exam: Present: atraumatic, normocephalic Eye exam: Present: normal appearance Neck exam: Present: normal inspection, full ROM. Absent: tenderness Respiratory exam: Present: normal lung sounds bilaterally. Absent: respiratory distress, wheezes, rales, rhonchi, chest wall tenderness Cardiovascular Exam: Present: regular rate, normal rhythm, normal heart sounds. Absent: systolic murmur, diastolic murmur, rubs, gallop GI/Abdominal exam: Present: soft. Absent: distended, tenderness, guarding, rebound, mass Extremities exam: Present: normal inspection Back exam: Present: normal inspection. Absent: vertebral tenderness Neurological exam: Present: alert Skin exam: Present: warm, dry, intact, normal color. Absent: rash Course Vital Signs 09/01/18 09/01/18 02:20 04:27 Temperature 98.1 F Pulse Rate 115 H 117 H Respiratory 16 20 Rate Blood Pressure 101/82 90/64 O2 Sat by Pulse 98 100 Oximetry Medical Decision Making - Medical Decision Making Patient is an 87-year-old man seen after a low mechanism of injury fall. Computed tomography scan negative. Patient without complaints. Stable for discharge back to his long-term care facility Disposition Clinical Impression: Fall, Closed head injury Disposition: HOME SELF-CARE Condition: Good Instructions: Fall Prevention for Older Adults (ED), Head Injury (ED) Is patient prescribed a controlled substance at d/c from ED?: No Referrals: Jayson Chan MD [Primary Care Provider] - 1-2 days
[2018-09-01 04:28] VITALS: BP 90/64; PULSE 117; RESP 20
== END 2018-09-01 04:35 | disposition home or self-care (01) ==
LOC: EC 02:19
DX: S09.90XA Unspecified injury of head, initial encounter (principal); R29.6 Repeated falls; I25.10 Atherosclerotic heart disease of native coronary artery without angina pectoris; E11.9 Type 2 diabetes mellitus without complications; E78.5 Hyperlipidemia, unspecified; I10 Essential (primary) hypertension; I25.2 Old myocardial infarction; N42.9 Disorder of prostate, unspecified; Z87.891 Personal history of nicotine dependence; Z79.4 Long term (current) use of insulin; Z79.52 Long term (current) use of systemic steroids; Z79.01 Long term (current) use of anticoagulants; Z79.899 Other long term (current) drug therapy; Z95.5 Presence of coronary angioplasty implant and graft; Z95.1 Presence of aortocoronary bypass graft; W07.XXXA Fall from chair, initial encounter; Y92.129 Unspecified place in nursing home as the place of occurrence of the external cause
CPT/HCPCS: 70450; 99285

== ENCOUNTER 2018-09-01 08:43 | Inpatient (IN) | payer MEDICARE ==
[2018-09-01] MEDS ORDERED: NITROGLYCERIN OINT 1 INCH/GM PACKET TOPICAL STA (08:52)
[2018-09-01] MEDS ORDERED: ASPIRIN 81 MG PO STA (08:52)
[2018-09-01] MEDS ORDERED: HEPARIN SODIUM,PORCINE 5,000 UNIT/ML 1 ML VIAL IV STA (08:52)
[2018-09-01] MEDS ORDERED: ATORVASTATIN 80 MG TAB PO STA (08:53)
[2018-09-01 08:54] VITALS: TEMP 97.5
[2018-09-01] MEDS ORDERED: ASPIRIN 300 MG SUPP RECTAL STA (08:55)
--- NOTE | 2018-09-01 09:08 | ED ---
General Adult HPI - General Chief complaint: Chest Pain Stated complaint: STEMI Time Seen by Provider: 09/01/18 08:44 Source: patient, EMS, RN notes reviewed Mode of arrival: EMS Limitations: no limitations - History of Present Illness Initial comments: This is an 87-year-old male who presents emergency Department with a past medical history significant for cardiac disease. Patient had a fall last night it was unknown whether or not he hit his head he was brought to the emergency department CAT scan was done and was normal. Today EMS was called because the patient was altered and he was sometimes responding other times not responding. Patient denied any chest pain he did mention he was a little short of breath. Patient denied any pain anywhere. Patient denied headache patient denies any numbness weakness. Family was in the room and they stated that he was a little altered compared to his baseline but also he was very tired from being up all night. EMS noted there was some ST segment depression on this rhythm strip so they did an EKG which showed a STEMI. When the patient arrived we repeated EKG and called a STEMI overhead and call Dr. Newman. I spoke with Dr. Newman. Patient remains chest pain-free. But family and patient would like a catheterization if it is necessary. - Related Data Home Medications Medication Instructions Recorded Confirmed Multivitamin [Men's Multi-Vitamin] 1 tab PO DAILY 10/14/16 09/01/18 Calcium Carbonate/Vitamin D3 1 tab PO DAILY 04/03/17 09/01/18 [Calcium 600-Vit D3 400 Caplet] Carbidopa/Levodopa [Sinemet CR 1 tab PO BID 08/16/18 09/01/18 50-200 mg] Rivaroxaban [Xarelto] 15 mg PO DAILY 08/16/18 09/01/18 Previous Rx's Medication Instructions Recorded Nitroglycerin Sl Tabs [Nitrostat] 0.4 mg SUBLINGUAL Q5M PRN #25 tab 06/19/16 Famotidine [Pepcid] 20 mg PO DAILY tab 10/19/16 glipiZIDE XL [Glucotrol XL] 5 mg PO DAILY #30 tab 04/06/17 Allopurinol [Zyloprim] 100 mg PO DAILY tab 08/28/18 Furosemide [Lasix] 20 mg PO DIRECTED #90 tablet 08/28/18 Insulin Aspart [NovoLOG 0 unit SQ ACHS vial 08/28/18 (formulary)] Melatonin 3 mg PO HS PRN tablet 08/28/18 Colloidal Oatmeal [Eucerin Eczema 1 applic TOPICAL BID #60 gm 08/30/18 Relief] Metoprolol Tartrate [Lopressor] 25 mg PO TID tab 08/30/18 Midodrine [ProAmatine] 5 mg PO AC-TID tab 08/30/18 Tamsulosin [Flomax] 0.4 mg PO PC-BRKFST cap.er.24h 08/30/18 predniSONE 40 mg PO DAILY #2 tab 08/30/18 Allergies Allergy/AdvReac Type Severity Reaction Status Date / Time No Known Allergies Allergy Verified 09/01/18 02:25 Review of Systems ROS Statement: Those systems with pertinent positive or pertinent negative responses have been documented in the HPI. ROS Other: All systems not noted in ROS Statement are negative. Past Medical History Past Medical History: Coronary Artery Disease (CAD), Chest Pain / Angina, Diabetes Mellitus, Hyperlipidemia, Hypertension, Myocardial Infarction ([place]), Prostate Disorder Additional Past Medical History / Comment(s): 10-14-16 STEMI Last Myocardial Infarction Date:: unknown History of Any Multi-Drug Resistant Organisms: None Reported Past Surgical History: Back Surgery, Coronary Bypass/CABG, Heart Catheterization With Stent, Orthopedic Surgery Additional Past Surgical History / Comment(s): 10-14-16 HEART CATH "CLOTS REMOVED AND 3 STENTS TO SVG TO PDA,STILL NO FLOW"2006 CABG -LT INTERNAL MAMMARY ARTERY GRAFT TO LAD, SVG TO DAIG, SVG TO PDA. carpal tunnel, cataracts removed, LASER PROCEDURE FOR ENLARGED PROSTATE, HEART CATH/PTCA 1982 Past Anesthesia/Blood Transfusion Reactions: No Reported Reaction Additional Past Anesthesia/Blood Transfusion Reaction / Comment(s): PT IS JEHOVAH WITNESS-NO BLOOD PRODUCTS Date of Last Stent Placement:: 2016 Past Psychological History: No Psychological Hx Reported Smoking Status: Former smoker Past Alcohol Use History: None Reported Past Drug Use History: None Reported - Past Family History Mother History Unknown: Yes Family Medical History: Hypertension Father History Unknown: Yes Family Medical History: Hypertension General Exam - General Exam Comments Initial Comments: GENERAL: Patient is well-developed and well-nourished. Patient is nontoxic and well- hydrated and is in no acute distress. ENT: Neck is soft and supple. No significant lymphadenopathy is noted. Oropharynx is clear. Moist mucous membranes. Neck has full range of motion without eliciting any pain. EYES: The sclera were anicteric and conjunctiva were pink and moist. Extraocular movements were intact and pupils were equal round and reactive to light. Eyelids were unremarkable. PULMONARY: Unlabored respirations. Good breath sounds bilaterally. No audible rales rhonchi or wheezing was noted. CARDIOVASCULAR: There is a regular rate and rhythm without any murmurs gallops or rubs. ABDOMEN: Soft and nontender with normal bowel sounds. No palpable organomegaly was noted. There is no palpable pulsatile mass. SKIN: Skin is clear with no lesions or rashes and otherwise unremarkable. NEUROLOGIC: Patient is alert and oriented 2. Cranial nerves II through XII are grossly intact. Motor and sensory are also intact. Normal speech, volume and content. Symmetrical smile. MUSCULOSKELETAL: Normal extremities with adequate strength and full range of motion. LYMPHATICS: No significant lymphadenopathy is noted PSYCHIATRIC: Normal psychiatric evaluation. Limitations: no limitations Course Vital Signs 09/01/18 09/01/18 09/01/18 08:44 09:30 10:00 Temperature 97.5 F L Pulse Rate 107 H 130 H 120 H Respiratory 20 19 10 L Rate Blood Pressure 116/61 101/84 98/83 O2 Sat by Pulse 98 99 99 Oximetry 09/01/18 10:23 Temperature Pulse Rate 108 H Respiratory 18 Rate Blood Pressure 93/58 O2 Sat by Pulse 98 Oximetry Medical Decision Making - Medical Decision Making EKG shows atrial fibrillation with occasional PVCs at 124 bpm QRS is 106 QT interval 338 QTC is 485. Patient's EKG shows ST segment elevation in leads 3 and aVF. Patient also has ST segment depression in leads 1 and aVL. Chest x-ray shows pulmonary edema. I started the patient Lasix. Dr. Newman came in to see the patient and after speaking with the patient and reviewing his previous catheterization to determine the patient was not going to go to the catheterization lab. I started the patient on heparin given the patient Lipitor and Nitropaste as well as aspirin. Admitted the patient after speaking with Dr. Chan he agreed to admit I wrote admitting orders I continued the aspirin and Nitropaste and heparin on the floor. I also continued Lasix on the floor. I consult to cardiology. - Lab Data Result diagrams: 09/01/18 08:53 09/01/18 08:53 Lab Results 09/01/18 09/01/18 09/01/18 Range/Units 08:53 08:53 08:53 WBC (3.8-10.6) k/uL RBC (4.30-5.90) m/uL Hgb (13.0-17.5) gm/dL Hct (39.0-53.0) % MCV (80.0-100.0) fL MCH (25.0-35.0) pg MCHC (31.0-37.0) g/dL RDW (11.5-15.5) % Plt Count (150-450) k/uL Hypochromasia Anisocytosis Macrocytosis PT 11.1 (9.0-12.0) sec INR 1.1 (<1.2) APTT 25.2 (22.0-30.0) sec Sodium 138 (137-145) mmol/L Potassium 4.6 (3.5-5.1) mmol/L Chloride 92 L (98-107) mmol/L Carbon Dioxide 33 H (22-30) mmol/L Anion Gap 13 mmol/L BUN 54 H (9-20) mg/dL Creatinine 1.74 H (0.66-1.25) mg/dL Est GFR (CKD-EPI)AfAm 40 (>60 ml/min/1.73 sqM) Est GFR (CKD-EPI)NonAf 34 (>60 ml/min/1.73 sqM) Glucose 329 H (74-99) mg/dL Calcium 9.5 (8.4-10.2) mg/dL Total Bilirubin 0.9 (0.2-1.3) mg/dL AST 40 (17-59) U/L ALT 30 (21-72) U/L Alkaline Phosphatase 134 H (38-126) U/L Total Creatine Kinase 46 L (55-170) U/L CK-MB (CK-2) 2.5 H (0.0-2.4) ng/mL CK-MB (CK-2) Rel Index 5.4 Troponin I 0.975 H* (0.000-0.034) ng/mL Total Protein 6.5 (6.3-8.2) g/dL Albumin 3.5 (3.5-5.0) g/dL 09/01/18 Range/Units 08:53 WBC 10.0 (3.8-10.6) k/uL RBC 4.29 L (4.30-5.90) m/uL Hgb 13.1 (13.0-17.5) gm/dL Hct 41.8 (39.0-53.0) % MCV 97.5 (80.0-100.0) fL MCH 30.5 (25.0-35.0) pg MCHC 31.3 (31.0-37.0) g/dL RDW 16.0 H (11.5-15.5) % Plt Count 276 (150-450) k/uL Hypochromasia Slight Anisocytosis Slight Macrocytosis Slight PT (9.0-12.0) sec INR (<1.2) APTT (22.0-30.0) sec Sodium (137-145) mmol/L Potassium (3.5-5.1) mmol/L Chloride (98-107) mmol/L Carbon Dioxide (22-30) mmol/L Anion Gap mmol/L BUN (9-20) mg/dL Creatinine (0.66-1.25) mg/dL Est GFR (CKD-EPI)AfAm (>60 ml/min/1.73 sqM) Est GFR (CKD-EPI)NonAf (>60 ml/min/1.73 sqM) Glucose (74-99) mg/dL Calcium (8.4-10.2) mg/dL Total Bilirubin (0.2-1.3) mg/dL AST (17-59) U/L ALT (21-72) U/L Alkaline Phosphatase (38-126) U/L Total Creatine Kinase (55-170) U/L CK-MB (CK-2) (0.0-2.4) ng/mL CK-MB (CK-2) Rel Index Troponin I (0.000-0.034) ng/mL Total Protein (6.3-8.2) g/dL Albumin (3.5-5.0) g/dL Critical Care Time Critical Care Time: Yes Total Critical Care Time: 35 Disposition Clinical Impression: STEMI (ST elevation myocardial infarction), Pulmonary edema Disposition: ADMITTED IP TO THIS [facility] Time of Disposition: 09:11
--- NOTE | 2018-09-01 09:09 | XR ---
EXAMINATION TYPE: XR chest 1V portable DATE OF EXAM: 09/01/2018 COMPARISON: 08/25/2018 HISTORY: Chest pain TECHNIQUE: Single frontal view of the chest is obtained. FINDINGS: There is cardiomegaly and moderate interstitial pulmonary edema and pulmonary vascular con gestion. Small pleural effusions, left greater than right, with the costophrenic angles and obscure t he left hemidiaphragm. Cardiomediastinal silhouette is enlarged with post CABG changes of the chest. There are slightly low lung volumes. Generalized osseous demineralization and degenerative changes of the shoulders are noted. IMPRESSION: Moderate pulmonary vascular congestion and interstitial edema likely on the basis of car diogenic fluid overload with small pleural effusions.
[2018-09-01 09:10] LABS: Anisocytosis Slight; HCT 41.8 % (39.0-53.0); HGB 13.1 gm/dL (13.0-17.5); Hypochromasia Slight; MCH 30.5 pg (25.0-35.0); MCHC 31.3 g/dL (31.0-37.0); MCV 97.5 fL (80.0-100.0); Macrocytosis Slight; Mean Platelet Volume 7.5; Platelet Count 276 k/uL (150-450); RBC 4.29 m/uL (4.30-5.90)
[2018-09-01] MEDS ORDERED: fentaNYL (PF) 50 MCG/ML 2 ML AMP ONE (09:12)
[2018-09-01] MEDS ORDERED: MIDAZOLAM 2 MG/2 ML VIAL ONE (09:12)
[2018-09-01] MEDS ORDERED: LIDOCAINE 1% INJ 10MG/ML (20 ML MDV) ONE (09:12)
[2018-09-01 09:21] LABS: Albumin 3.5 g/dL (3.5-5.0); Calcium 9.5 mg/dL (8.4-10.2); Potassium 4.6 mmol/L (3.5-5.1); Total Bilirubin 0.9 mg/dL (0.2-1.3); Total Protein 6.5 g/dL (6.3-8.2)
[2018-09-01 09:27] LABS: INR 1.1 (<1.2); Partial Thromboplastin Time 25.2 sec (22.0-30.0); Prothrombin Time 11.1 sec (9.0-12.0)
--- NOTE | 2018-09-01 09:35 | CT ---
EXAMINATION TYPE: CT brain wo con DATE OF EXAM: 09/01/2018 COMPARISON: 08/16/2018 HISTORY: Fall with subsequent head pain CT DLP: 1107.4 mGycm Automated exposure control for dose reduction was used. TECHNIQUE: CT scan of the head is performed without contrast. FINDINGS: There is no acute intracranial hemorrhage or midline shift identified. There is diffuse v entricular and sulcal prominence consistent with diffuse age-related cerebral atrophy. 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 Lacunar injuries of the anterior limbs of the i nternal capsules are less well-defined on the current exam than on the prior. Similarly right lentifo rm nucleus lacunar injury is not well visualized on today's exam. There is confluent low-attenuation in the periventricular white matter consistent with chronic small vessel ischemic change. The globes are intact. Complete opacification of the right maxillary sinus is redemonstrated. Remaining paranas al sinuses and mastoid air cells are well aerated. Density within the right maxillary sinus suggests hemorrhage or atypical fungal infection. IMPRESSION: 1. No acute intracranial hemorrhage or midline shift. 2. Redemonstration of old lacunar injuries some better seen on the prior as well as diffuse age-relat ed cerebral atrophy and chronic small vessel ischemic change throughout. 3. Again there is complete opacification of the right maxillary sinus with high density internally perez ggesting either hemorrhage or atypical infection such as fungal infection.
[2018-09-01 09:43] LABS: Creatine Kinase MB 2.5 ng/mL (0.0-2.4)
[2018-09-01 09:48] LABS: Troponin I 0.975 ng/mL (0.000-0.034)
[2018-09-01] MEDS ORDERED: DEXTROSE 5% IN WATER 100 ML with AMIODARONE 150 MG IV ONE (10:15)
[2018-09-01] MEDS ORDERED: SODIUM CHLORIDE 0.9% 500 ML 500 ML IV ONE (10:28)
[2018-09-01] MEDS ORDERED: AMIODARONE 450 MG in DEXTROSE 5% IN WATER 250 ML IV ONE ×2 (10:30)
[2018-09-01] MEDS ORDERED: HEPARIN SOD,PORK IN 0.45% NACL 25,000 UNIT in 0.45% NACL 1 500ML.BAG IV SCH (10:45)
[2018-09-01] MEDS ORDERED: FUROSEMIDE 10 MG/ML 4 ML VIAL IV STA (10:48)
[2018-09-01] MEDS ORDERED: NITROGLYCERIN SL TABS 0.4 MG TAB SUBLINGUAL PRN (10:49)
[2018-09-01] MEDS ORDERED: SODIUM CHLORIDE 0.9% 1,000 ML IV SCH (11:15)
[2018-09-01 11:29] VITALS: BP 101/75
[2018-09-01] MEDS ORDERED: NITROGLYCERIN OINT 1 INCH/GM PACKET TOPICAL SCH (12:00)
[2018-09-01 13:06] VITALS: PULSE 0; RESP 16
--- NOTE | 2018-09-01 13:24 | P.HPIM ---
History of Present Illness H&P Date: 09/01/18 Julián Lopes is an 87-year-old male, who was recently admitted to [facility] with multiple medical problems, he was transferred to [facility] for rehab recently, last night patient sustained a fall at the alf, EMS were called and patient was brought in to [facility] emergency room, he was evaluated in the emergency room computed tomography scan of the brain was within normal limits he was sent back to [facility]. Shortly patient started having worsening mental status with more confusion and somnolence, he was sent back again to emergency room, he was evaluated and had an EKG suggestive of acute anteroseptal myocardial infarction , troponin level was elevated at 0.975. Cardiology consult was placed immediately in the emergency room for possible cardiac catheterization. Patient was complaining of some shortness of breath however he denies any chest pain or any pain anywhere. Past Medical History Past Medical History: Coronary Artery Disease (CAD), Chest Pain / Angina, Diabetes Mellitus, Hyperlipidemia, Hypertension, Myocardial Infarction (MO), Prostate Disorder Additional Past Medical History / Comment(s): 10-14-16 STEMI Last Myocardial Infarction Date:: unknown History of Any Multi-Drug Resistant Organisms: None Reported Past Surgical History: Back Surgery, Coronary Bypass/CABG, Heart Catheterization With Stent, Orthopedic Surgery Additional Past Surgical History / Comment(s): 10-14-16 HEART CATH "CLOTS REMOVED AND 3 STENTS TO SVG TO PDA,STILL NO FLOW"2006 CABG -LT INTERNAL MAMMARY ARTERY GRAFT TO LAD, SVG TO DAIG, SVG TO PDA. carpal tunnel, cataracts removed, LASER PROCEDURE FOR ENLARGED PROSTATE, HEART CATH/PTCA 1982 Past Anesthesia/Blood Transfusion Reactions: No Reported Reaction Additional Past Anesthesia/Blood Transfusion Reaction / Comment(s): PT IS JEHOVAH WITNESS-NO BLOOD PRODUCTS Date of Last Stent Placement:: 2016 Past Psychological History: No Psychological Hx Reported Smoking Status: Former smoker Past Alcohol Use History: None Reported Past Drug Use History: None Reported - Past Family History Mother History Unknown: Yes Family Medical History: Hypertension Father History Unknown: Yes Family Medical History: Hypertension Medications and Allergies Home Medications Medication Instructions Recorded Confirmed Type Nitroglycerin Sl Tabs [Nitrostat] 0.4 mg SUBLINGUAL Q5M PRN #25 tab 06/19/1610/19 Rx Multivitamin [Men's Multi-Vitamin] 1 tab PO DAILY 10/14/16 09/01/18 History Famotidine [Pepcid] 20 mg PO DAILY tab 10/19/16 09/01/18 Rx Calcium Carbonate/Vitamin D3 1 tab PO DAILY 04/03/17 09/01/18 History [Calcium 600-Vit D3 400 Caplet] glipiZIDE XL [Glucotrol XL] 5 mg PO DAILY #30 tab 04/06/17 09/01/18 Rx Carbidopa/Levodopa [Sinemet CR 1 tab PO BID 08/16/18 09/01/18 History 50-200 mg] Rivaroxaban [Xarelto] 15 mg PO DAILY 08/16/18 09/01/18 History Allopurinol [Zyloprim] 100 mg PO DAILY tab 08/28/18 09/01/18 Rx Melatonin 3 mg PO HS PRN tablet 08/28/18 09/01/18 Rx Colloidal Oatmeal [Eucerin Eczema 1 applic TOPICAL BID #60 gm 08/30/18 09/01/18 Rx Relief] Metoprolol Tartrate [Lopressor] 25 mg PO TID tab 08/30/18 09/01/18 Rx Tamsulosin [Flomax] 0.4 mg PO PC-[id number] cap.er.24h 08/30/18 09/01/18 Rx predniSONE 40 mg PO DAILY #2 tab 08/30/18 09/01/18 Rx Bisacodyl [Dulcolax] 10 mg RECTAL DAILY 09/01/18 09/01/18 History Furosemide [Lasix] 20 - 40 mg PO DAILY 09/01/18 09/01/18 History Insulin Aspart [NovoLOG See Protocol SQ AC-TID 09/01/18 09/01/18 History (formulary)] Insulin Aspart [NovoLOG See Protocol SQ ACHS 09/01/18 09/01/18 History (formulary)] Midodrine [ProAmatine] 5 mg PO TID 09/01/18 09/01/18 History Na Phos,M-B/Na Phos,Di-Ba [Fleet 133 ml RECTAL ONCE 09/01/18 09/01/18 History Adult] predniSONE 10 mg PO DAILY 09/01/18 09/01/18 History Allergies Allergy/AdvReac Type Severity Reaction Status Date / Time No Known Allergies Allergy Verified 09/01/18 10:49 Physical Exam Vitals: Vital Signs Temp Pulse Resp BP Pulse Ox 09/01/18 13:00 0 L 09/01/18 12:51 0 L 09/01/18 11:30 103 H 16 101/75 09/01/18 11:27 114 H 18 101/75 97 09/01/18 11:15 118 H 18 95/71 09/01/18 11:00 101 H 17 87/65 09/01/18 10:45 99 15 87/72 100 09/01/18 10:30 101 H 15 93/58 98 09/01/18 10:23 108 H 18 93/58 98 09/01/18 10:00 120 H 10 L 98/83 99 09/01/18 09:30 130 H 19 101/84 99 09/01/18 08:44 97.5 F L 107 H 20 116/61 98 Intake and Output 08/31/18 09/01/18 09/01/18 22:59 06:59 14:59 Other: Weight 79.243 kg In general patient is alert slightly confused in no apparent distress HEENT head normocephalic and atraumatic Neck is supple no JVD no goiter no lymphadenopathy Chest exam reveals a few scattered rhonchi no wheezing Cardiac exam reveals irregular heart sounds no gallops no murmurs Abdomen is soft nontender no organomegaly Extremity exam reveals no edema no cyanosis or clubbing Results CBC & Chem 7: 09/01/18 08:53 09/01/18 08:53 Labs: Abnormal Lab Results - Last 24 Hours (Table) 09/01/18 09/01/18 09/01/18 Range/Units 08:53 08:53 08:53 RBC 4.29 L (4.30-5.90) m/uL RDW 16.0 H (11.5-15.5) % Chloride 92 L (98-107) mmol/L Carbon Dioxide 33 H (22-30) mmol/L BUN 54 H (9-20) mg/dL Creatinine 1.74 H (0.66-1.25) mg/dL Glucose 329 H (74-99) mg/dL Alkaline Phosphatase 134 H (38-126) U/L Total Creatine Kinase 46 L (55-170) U/L CK-MB (CK-2) 2.5 H (0.0-2.4) ng/mL Troponin I 0.975 H* (0.000-0.034) ng/mL Assessment and Plan Plan: #1 acute myocardial infarction, patient was evaluated by cardiology, at this point decision was made not to proceed with cardiac catheterization #2 underlying history of hypertension #3 underlying history of hyperlipidemia #4 underlying history of atrial fibrillation #5 underlying history of Parkinson disease #6 underlying history of gout At this time patient is admitted to intensive care unit he is maintained on IV heparin, he is also maintained on aspirin, Lasix, amiodarone drip and Nitropaste Cardiology are following Prognosis is guarded due to age and multiple comorbidities
[2018-09-01] MEDS ORDERED: FUROSEMIDE 10 MG/ML 2 ML VIAL IV SCH (16:00)
--- NOTE | 2018-09-01 22:12 | CONS ---
CONSULTATION Mr. Lopes is an 87-year-old gentleman who was seen in the emergency room with a possible ST-segment elevation myocardial infarction. The history was obtained from the patient's son, daughter as well as from the chart and the patient's old charts were reviewed. This patient was brought by the emergency room with a complaint that this patient has been confused and disoriented and with a change in the mental status. He did not complain of any chest discomfort. Initial EKG was suggestive of old inferior wall myocardial infarction with ST-segment elevation in the inferior leads. I evaluated the patient in the emergency room. He was not complaining of any chest pain. This patient has a history of coronary artery disease with a prior history of coronary artery bypass surgery. The patient came with inferior wall NE about in October of 2016 and underwent a cardiac catheterization. The patient was found to have the saphenous vein graft to the right coronary artery was full of clots and they were unable to stent it and patient was treated medically. The patient was subsequently recently in the hospital with atrial fibrillation with a rapid ventricular response and the patient was treated with medication. He was started on Xarelto and was discharged to the [facility] and the patient was subsequently brought over here. The EKG done this morning was compared with the last EKG done 3 days ago in the hospital. There is slightly more ST-segment elevation in the inferior leads, but there was no significant change as compared to the before. I had a discussion with Dr. Garcia who is his primary secretary book keeper. He reviewed his old films. His grafts are diffusely diseased and his right coronary artery graft could not be opened and so medical treatment was recommended. The patient was not considered a candidate for any aggressive intervention because of his advanced age and underlying diffuse coronary artery disease. I had discussed with the patient's son and daughter and they fully understand. The patient is a DNR. Patient was started on amiodarone drip in the emergency room to control the rate. HOME MEDICATIONS: Included nitroglycerin, glipizide, Zipril, NovoLog, chromatin, Flomax, and prednisone. PAST MEDICAL HISTORY: Includes history of coronary artery bypass surgery, prior myocardial infarction and cardiac catheterization. Patient's saphenous vein graft to the right coronary artery was totally blocked. The patient is also a Jehovah Witness and he would not take any blood products. In the emergency room, this patient was alert and would answer to the questions slowly, but he was sleepy. Patient's heart rate was 120-130. Blood pressure was 160/61 mmHg. HEENT examination is negative. Neck was supple. There was no increase in jugular venous pressure. First and second heart sounds were heard. Lungs reveal bilateral few basal rales. Abdomen was soft. Extremities: Peripheral pulses were not felt. EKG shows Q-waves in the inferior leads suggestive of old inferior wall myocardial infarction. The patient has a slightly more pronounced ST-segment elevation in lead 3 and AVF. This patient's chest x-ray is suggestive of pulmonary edema. The patient's recent echocardiogram reveals severely impaired left ventricular systolic function with ejection fraction of 20%. The patient's creatinine was 1.74. FINAL IMPRESSION: This patient is primarily admitted with episodes of confusion and change in the mental status. Patient is not having any acute chest pain. EKG shows evidence of prior inferior wall myocardial infarction with slightly more ST-segment elevation as compared to before and associated non ST-segment elevation myocardial infarction cannot be entirely excluded. The patient does have ischemic cardiomyopathy with severely impaired left ventricular systolic function and has evidence of congestive cardiac failure. In view of the previous cardiac cath findings, medical treatment was recommended. We will continue the supportive treatment. Patient is started on IV amiodarone drip to control the rate. MMODL / IJN: [id number] /
[2018-09-02] MEDS ORDERED: ASPIRIN 325 MG TAB PO SCH (09:00)
--- NOTE | 2018-09-04 13:20 | CDI ---
87 y/o male admitted with STEMI History/Risk Factors:. CAD, STEMI, DM HTN, ischemic cardiomyopathy Clinical Indicators: ED notes state pulmonary edema Echocardiogram Results: per cardiology consult last EF 20% Cards consult: ischemic cardiomyopathy with severely impaired systolic function and has evidence of congestive cardiac failure. Chest X Ray: moderate pulmonary vascular congestion and interstitial edam likely on the basis of cardiogenic fluid overload with small pleural effusions Treatment: IV Lasix, cards consult. Patient was on oral Lasix at home In your professional opinion, can you please clarify the acuity and type of CHF if known? Systolic Heart Failure: Acute Chronic Acute on Chronic Diastolic Heart Failure: Acute Chronic Acute on Chronic Systolic & Diastolic Heart Failure: Acute Chronic Acute on Chronic Heart Failure Acute pulmonary edema Unable to Determine Other, please specify acute on chronic systolic congestive heart failure MTDD
--- NOTE | 2018-09-04 13:33 | CDI ---
87 yo male admitted with STEMI History/Risk Factors: HTN, CAD Clinical Indicators: 09/01 Bun/cr: 54/1.74 GFR 34 Treatment: 500 cc IVF bolus in ER and 1L at 100 ml/hr In order to capture the severity of condition, please clarify if the condition signifies: Acute renal failure Acute kidney injury Acute on chronic renal failure Chronic renal failure/Chronic Kidney disease (CKD) please stage if known CKD Stage 1 GFR >90 CKD Stage 2 GFR 60-89 CKD Stage 3 GFR 30-59 CKD Stage 4 GFR 15-29 Other, please specify Unable to determine chronic renal failure stage 3 MTDD
== END 2018-09-01 12:05 | disposition expired ==
LOC: EC 08:43 → 2SICU 09:10
PROVIDERS: ADMIT Internal Medicine; ATTEND Internal Medicine
DX: I21.3 ST elevation (STEMI) myocardial infarction of unspecified site (principal); I50.23 Acute on chronic systolic (congestive) heart failure; I13.0 Hypertensive heart and chronic kidney disease with heart failure and stage 1 through stage 4 chronic kidney disease, or unspecified chronic kidney disease; E78.5 Hyperlipidemia, unspecified; G20 Parkinson's disease; I25.10 Atherosclerotic heart disease of native coronary artery without angina pectoris; I25.2 Old myocardial infarction; I25.5 Ischemic cardiomyopathy; I48.91 Unspecified atrial fibrillation; I49.3 Ventricular premature depolarization; L30.9 Dermatitis, unspecified; W19.XXXA Unspecified fall, initial encounter; Z66 Do not resuscitate; Z79.01 Long term (current) use of anticoagulants; Z79.4 Long term (current) use of insulin; Z79.899 Other long term (current) drug therapy; Z82.49 Family history of ischemic heart disease and other diseases of the circulatory system; Z87.891 Personal history of nicotine dependence; Z95.1 Presence of aortocoronary bypass graft; Z79.52 Long term (current) use of systemic steroids; N18.3 Chronic kidney disease, stage 3 (moderate); E11.22 Type 2 diabetes mellitus with diabetic chronic kidney disease
CPT/HCPCS: 36415; 70450; 71045; 80053; 82550; 82553; 84484; 85027; 85610; 85730; 93005; 96374; 99285; 99291